=== PATIENT | male | born 1935 | race African-American/Black ===

== ENCOUNTER 2018-08-10 08:31 | Emergency (ER) | payer OTHER ==
[2018-08-10 08:36] VITALS: TEMP 97.8; BMI 20.9
--- NOTE | 2018-08-10 08:45 | PDOC ---
History of Present Illness - General Chief Complaint: Pain Stated Complaint: ABD PAIN Time Seen by Provider: 08/10/18 08:44 - History of Present Illness Initial Comments: 83yo M with HTN x 3 weeks suprapubic pain and bilateral flank pain. Patient reports intermittent dysuria described as burning and retention, but denies frequency, urgency, hesitancy, or foul-smelling urine. He says he had bladder inflammation about three months ago which was treated with antibiotics. Denies penile pain, discharge, or genital lesions. Bowel movements are regular and normal formed brown stools. No fever, chills, chest pain, or shortness of breath. No fever, chills, chest pain, or shortness of breath. Past History - Past Medical History Allergies/Adverse Reactions: Allergies Allergy/AdvReac Type Severity Reaction Status Date / Time Penicillins Allergy Verified 08/10/18 08:33 Home Medications: Ambulatory Orders Losartan Potassium [Cozaar] 100 mg PO DAILY 01/25/12 Multivitamin [Multiple Vitamins] 1 each PO DAILY 08/10/18 Polyethylene Glycol 3350 [Miralax (For Daily Use) -] 17 gm PO DAILY #1 bottle Anemia: No Asthma: No Cancer: No Cardiac Disorders: No CVA: No COPD: No CHF: No Dementia: No Diabetes: No GI Disorders: No Disorders: No HTN: Yes Hypercholesterolemia: No Liver Disease: No Seizures: No Thyroid Disease: No Other medical history: eyes - Surgical History Abdominal Surgery: Yes (right inguinal hernia repair) Cardiac Surgery: No Lung Surgery: No Neurologic Surgery: No - Suicide/Smoking/Psychosocial Hx Smoking Status: No Smoking History: Never smoked Have you smoked in the past 12 months: No Number of Cigarettes Smoked Daily: 0 Information on smoking cessation initiated: No Hx Alcohol Use: No Drug/Substance Use Hx: No Substance Use Type: None Review of Systems - Review of Systems Able to Perform ROS?: Yes Comments:: Constitutional: no fever, no chills Cardiovascular: no chest pain, no palpitations Respiratory: no cough, no shortness of breath Gastrointestinal: +suprapubic pain, no nausea, no vomiting, no diarrhea, no constipation Genitourinary: +dysuria, no frequency Musculoskeletal: no myalgia, no arthralgia Skin: no rash, no itching Neurologic: no headache, no dizziness *Physical Exam - Vital Signs Last Vital Signs Temp Pulse Resp BP Pulse Ox 97.8 F 70 18 149/75 95 08/10/18 08:33 08/10/18 08:33 08/10/18 08:33 08/10/18 08:33 08/10/18 08:33 - Physical Exam Comments: General: Awake, alert, and fully oriented, in no acute distress Head: no signs of trauma Eyes: EOMI, sclera anicteric ENT: Moist mucus membranes, Neck: Normal ROM, supple Lungs: Lungs clear, Normal breath sounds Cardio: Regular rhythm, S1 and S2 present Abdomen: +suprapubic tenderness upon palpation, +CVA tenderness b/l; No guarding , no rebound, no masses Extremities: Normal range of motion, Distal pulses present SKIN: Warm, Dry, normal turgor Neurologic: Cranial nerves II through XII grossly intact. Normal speech ED Treatment Course - LABORATORY CBC & Chemistry Diagram: 08/10/18 09:00 08/10/18 09:00 Medical Decision Making - Medical Decision Making 83yo M with HTN x 3 weeks suprapubic pain and bilateral flank pain. -Labs -EKG -CXR -Ofirmev 08/10/18 09:47 WBC=1.9. Patient has had low WBC in the past. Decision for CT abdomen/pelvis to assess for potential lymphoma or other amsses EKG, rate 58, QTc 402, 1st degree AV block, no ST d/e UA negative. 08/10/18 11:31 Patient reports some alleviation of suprapubic pain. CT shows evidence of enlarged prostrate and constipation. Plan to discharge patient with PCP followup. Sent miralax to pharmacy. Patient amenable to plan. 08/10/18 13:02 *DC/Admit/Observation/Transfer Diagnosis at time of Disposition: Abdominal pain - Discharge Dispostion Disposition: HOME Condition at time of disposition: Improved - Prescriptions Prescriptions: Polyethylene Glycol 3350 [Miralax (For Daily Use) -] 17 gm PO DAILY #1 bottle - Referrals Referrals: Myke Pedraza MD [Primary Care Provider] - - Patient Instructions Printed Discharge Instructions: DI for Abdominal Pain-Adult Additional Instructions: You came to the ED for abdominal pain. CT imaging showed evidence of constipation and an enlarged prostate. Miralax sent to your pharmacy. Follow up with your primary care physician, Dr. Pedraza, in 5-7 days. RETURN if: you experience any lightheadedness, dizziness, chest pain, shortness of breath, persistent black tarry stools, bright red blood per rectum, blood in your vomit, any severe abdominal pain, or any other new or concerning symptoms - Post Discharge Activity
[2018-08-10] MEDS ORDERED: ACETAMINOPHEN 1000 MG/100 ML VIAL (NON FORMULARY) IVPB ONE ×2 (09:11→09:12)
[2018-08-10 09:20] LABS: BASO % 0.5 % (0-2.0); EOS % 1.1 % (0-4.5); HEMATOCRIT 41.8 % (35.4-49); HEMOGLOBIN 13.7 GM/dL (11.7-16.9); LYMPH % 44.3 % (8-40); MCH 28.6 pg (25.7-33.7); MCHC 32.9 g/dl (32.0-35.9); MEAN CELL VOLUME 87.1 fl (80-96); MEAN PLT VOLUME 8.4 fl (7.5-11.1); MONO % 18.1 % (3.8-10.2); PLATELET COUNT 165 K/MM3 (134-434); RDW 15.5 % (11.9-15.9)
[2018-08-10 09:30] LABS: URINE APPEARANCE CLEAR; URINE BILIRUBIN NEGATIVE (<2.0 mg/dL); URINE COLOR LTYELLOW; URINE GLUCOSE (UA) NEGATIVE (NEGATIVE); URINE KETONE NEGATIVE (NEGATIVE); URINE LEUK ESTERASE TRACE (NEGATIVE); URINE NITRITE NEGATIVE (NEGATIVE); URINE PROTEIN NEGATIVE (NEGATIVE); URINE UROBILINOGEN NEGATIVE mg/dL (0.2-1.0)
[2018-08-10 09:30] LABS: WHITE BLOOD COUNT 1.9 K/mm3 (4.0-10.0)
[2018-08-10 09:43] LABS: ALBUMIN 3.8 g/dl (3.4-5.0); ALK PHOS 91 U/L (45-117); ANION GAP 1 MMOL/L (8-16); BILIRUBIN,TOTAL 0.9 mg/dL (0.2-1); BLOOD UREA NITROGEN 15 mg/dL (7-18); CALCIUM 8.7 mg/dL (8.5-10.1); CHLORIDE 107 mmol/L (98-107); CO2 31 mmol/L (21-32); CREATININE 0.9 mg/dL (0.55-1.3); GLUCOSE,RANDOM 82 mg/dL (74-106); SGOT/AST 20 U/L (15-37); SGPT/ALT 36 U/L (13-61); SODIUM 140 mmol/L (136-145); TOT PROT 6.8 g/dl (6.4-8.2)
[2018-08-10] MEDS ORDERED: ACETAMINOPHEN INJECTION 100 ML IVPB ONE (09:51)
--- NOTE | 2018-08-10 09:59 | PDOC ---
Attending Attestation - HPI HPI: This patient is an 83 year old male, with PMHx of HTN, who presents with 3 weeks of suprapubic and bilateral flank pain. He states that he saw his PCP but states that his doctor didnt run all the tests that he wanted him to do so he came here. He also reports intermittent dysuria. One month ago he was told he had BPH and was started on Flomax and another medication however he states that he didnt take it because he thought it would cause prostate cancer. PCP: Myke Pedraza Denies any hematuria, urgency, frequency, hesitancy. Denies any fever chills, nausea, vomiting diarrhea. <Estrellita Sweet - Last Filed: 08/10/18 10:00> - Resident Resident Name: Samina Duarte - ED Attending Attestation I have performed the following: I have examined & evaluated the patient, The case was reviewed & discussed with the resident, I agree w/resident's findings & plan, Exceptions are as noted - Physicial Exam PE: 08/10/18 15:44 Vitals: Triage Vital signs reviewed General Appearance: no acute distress, well nourished well developed, Neck: Supple;No Nucal rigidity Chest Wall: Nontender Cardiac: Regular rate and rhythym, no murmurs, no rubs, no gallops, Lungs: Clear to auscultation bilateral, good air movement bilaterally, Abdomen: Soft, non distended, normal bowel sounds, non tender to palpation Extremities: Full range of motion to all extremities, no cyanosis, clubbing, or edema Skin: Warm and dry, no rashes or lesions, no rash, no petechiae Neuro: AOX3; Cranial Nerves 2-12 grossly intact, Strength intact to all extremities, Sensation intact to all extremities,gait normal Psych: normal mood, normal affect - Medical Decision Making 08/10/18 15:45 83 years old several month history of low back pain suprapubic pain. Known history of BPH was prescribed Flomax but did not want to take it Given age chronicity of abdominal discomfort we'll CT abdomen and pelvis IV contrast labs urine observe and reassess No acute findings on CAT scan labs within normal limits patient feels better after pain medication recommended follow-up with his doctor this week Findings, need for follow-up and strict return instructions discussed with patient. <Jude Benitez - Last Filed: 08/10/18 15:46> Heart Score/ECG Review - ECG Impressions Comment:: 08/10/18 15:46 EKG performed at 928 demonstrates sinus rhythm [address] elevations noted T- wave inversions. Interpreted by me. <Jude Benitez - Last Filed: 08/10/18 15:46>
[2018-08-10 10:59] LABS: ACANTHOCYTES 0; ANISOCYTOSIS 0; HELMET CELLS 0; HOWELL-JOLLY BODIES 0; MACROCYTOSIS 0; OVALOCYTE 0; PLATELET ESTIMATE DECREASED; ROULEAU 0; SICKELED CELLS 0; TARGET CELLS 0; TEAR DROP CELLS 0; TOXIC GRANULATION 0
[2018-08-10 12:19] VITALS: BP 118/68; PULSE 54
--- NOTE | 2018-08-10 15:35 | EKG ---
Test Reason : Blood Pressure : / mmHG Vent. Rate : 058 BPM Atrial Rate : 058 BPM P-R Int : 224 ms QRS Dur : 088 ms QT Int : 410 ms P-R-T Axes : 083 066 063 degrees QTc Int : 402 ms SINUS BRADYCARDIA WITH 1ST DEGREE A-V BLOCK MODERATE VOLTAGE CRITERIA FOR LVH, MAY BE NORMAL VARIANT BORDERLINE ECG WHEN COMPARED WITH ECG OF 16-JAN-2016 16:17, [place] INTERVAL HAS INCREASED Confirmed by ENMANUEL AZAR, ISAÍAS ([id number]) on 08/10/2018 3:35:03 PM Referred By: Confirmed By:ISAÍAS SINGER MD
== END 2018-08-10 13:36 | disposition home or self-care (01) ==
LOC: JER 08:31
PROC: 3E033NZ Introduction of Analgesics, Hypnotics, Sedatives into Peripheral Vein, Percutaneous Approach (ICD-10-PCS; principal; 2018-08-10)
DX: N40.0 Benign prostatic hyperplasia without lower urinary tract symptoms (principal); K59.00 Constipation, unspecified; I10 Essential (primary) hypertension
CPT/HCPCS: 36415; 71045-TC-FY; 74177-TC; 80053; 81003; 81015; 83605; 85025; 87086; 93005; 93010; 96374; 99283-25; J0131

== ENCOUNTER 2019-06-26 08:46 | Observation (INO) | payer OTHER ==
--- NOTE | 2019-06-26 09:06 | PDOC ---
History of Present Illness - General Chief Complaint: Chest Pain Stated Complaint: CHEST PAIN Time Seen by Provider: 06/26/19 08:56 History Source: Patient Exam Limitations: No Limitations - History of Present Illness Initial Comments: 06/26/19 09:31 Patient is an 84M with history of HTN here today complaining of chest pain that onset at rest this morning, two hours prior to arrival. The patient describes his pain as a pressure that goes from his chest to his left arm. He took aspirin at home, and states that his pain has been improving since. He states that his chest pain has mostly resolved. It is not reproducible and not changed with inspiration. Denies fevers, chills, nausea, vomiting. Denies cough and shortness of breath. Denies abdominal pain, leg pain. Patient complains of some lower back pain that has been going on for one month and worse with moving from a sitting to standing position. Denies recent travel, leg swelling, prior blood clots. Past History - Past Medical History Allergies/Adverse Reactions: Allergies Allergy/AdvReac Type Severity Reaction Status Date / Time Penicillins Allergy Verified 06/26/19 08:50 Home Medications: Ambulatory Orders Losartan Potassium [Cozaar] 100 mg PO DAILY 01/25/12 Multivitamin [Multiple Vitamins] 1 each PO DAILY 08/10/18 Aspirin [Aspirin EC] 81 mg PO DAILY PRN 06/26/19 Finasteride [Proscar -] 5 mg PO DAILY 06/26/19 Anemia: No Asthma: No Cancer: No Cardiac Disorders: No CVA: No COPD: No CHF: No Dementia: No Diabetes: No GI Disorders: No Disorders: No HTN: Yes Hypercholesterolemia: No Liver Disease: No Seizures: No Thyroid Disease: No - Surgical History Abdominal Surgery: Yes (right inguinal hernia repair) Cardiac Surgery: No Lung Surgery: No Neurologic Surgery: No - Suicide/Smoking/Psychosocial Hx Smoking Status: No Smoking History: Never smoked Have you smoked in the past 12 months: No Number of Cigarettes Smoked Daily: 0 Hx Alcohol Use: No Drug/Substance Use Hx: No Substance Use Type: None Review of Systems - Review of Systems Able to Perform ROS?: Yes Comments:: 06/26/19 09:33 GENERAL/CONSTITUTIONAL: No fever or chills. No weakness. HEAD, EYES, EARS, NOSE AND THROAT: No change in vision. No ear pain or discharge. No sore throat. CARDIOVASCULAR: +chest pain no shortness of breath RESPIRATORY: No cough, wheezing, or hemoptysis. GASTROINTESTINAL: No nausea, vomiting, diarrhea or constipation. GENITOURINARY: No dysuria, frequency, or change in urination. MUSCULOSKELETAL: No joint or muscle swelling or pain. No neck or back pain. SKIN: No rash NEUROLOGIC: No headache, vertigo, loss of consciousness, or change in strength/ sensation. ENDOCRINE: No increased thirst. No abnormal weight change HEMATOLOGIC/LYMPHATIC: No anemia, easy bleeding, or history of blood clots. ALLERGIC/IMMUNOLOGIC: No hives or skin allergy. *Physical Exam - Vital Signs Last Vital Signs Temp Pulse Resp BP Pulse Ox 97.9 F 68 18 133/61 98 06/26/19 08:47 06/26/19 08:47 06/26/19 08:47 06/26/19 08:47 06/26/19 08:47 - Physical Exam Comments: 06/26/19 09:33 GENERAL: Awake, alert, and fully oriented, in no acute distress HEAD: No signs of trauma, normocephalic, atraumatic EYES: PERRLA, EOMI, sclera anicteric, conjunctiva clear ENT: Auricles normal inspection, hearing grossly normal, nares patent, oropharynx clear without exudates. Moist mucosa NECK: Normal ROM, supple, no lymphadenopathy, JVD, or masses LUNGS: No distress, speaks full sentences, clear to auscultation bilaterally HEART: Regular rate and rhythm, normal S1 and S2, no murmurs, rubs or gallops, peripheral pulses normal and equal bilaterally. No chest wall tenderness BACK: No midline tenderness, tender along left lumbar paraspinal region. ABDOMEN: Soft, nontender, normoactive bowel sounds. No guarding, no rebound. No masses EXTREMITIES: Normal inspection, Normal range of motion, no edema. No clubbing or cyanosis. NEUROLOGICAL: Cranial nerves II through XII grossly intact. Normal speech, normal gait, no focal sensorimotor deficits SKIN: Warm, Dry, normal turgor, no rashes or lesions noted. Heart Score/ECG Review - History History: Moderately suspicious - Electrocardiogram EKG: Normal - Age Age: >/= 65 - Risk Factors Risk Factors Heart Score: Yes Hx Hypertension Based on the list above the patient has:: 1-2 risk factors - Troponin Troponin: </= normal limit - Score Heart Score - Total: 4 ED Treatment Course - LABORATORY CBC & Chemistry Diagram: 06/26/19 09:16 06/26/19 09:16 - RADIOLOGY Radiology Studies Ordered: Category Date Time Status CHEST PA & LAT [RAD] Stat Radiology 06/26/19 09:04 Ordered Medical Decision Making - Medical Decision Making 06/26/19 09:34 Patient is 84M with history of HTN here today with chest pain. Vitals normal and stable. Pain mostly resolved, already given aspirin. EKG shows NSR with no st elevations/depressions. Normal axis. Normal intervals. No significant t wave abnormalities. Do not suspect PE given risk factors and symptoms. HEART score 4 , will do cardiac workup, likely admit to obs. 06/26/19 10:20 CBC shows leukopenia, ANC 608. Patient chronically low, slightly below baseline today. CMP normal Trop neg UA clear. CXR clear. Hospitalist paged. *DC/Admit/Observation/Transfer Diagnosis at time of Disposition: Chest pain - Discharge Dispostion Condition at time of disposition: Stable Decision to Admit order: Yes - Referrals Referrals: Juan C Thrasher MD [Primary Care Provider] - - Patient Instructions - Post Discharge Activity
[2019-06-26 09:33] LABS: BASO % 0.5 % (0-2.0); EOS % 1.4 % (0-4.5); HEMATOCRIT 37.1 % (35.4-49); HEMOGLOBIN 12.7 GM/dL (11.7-16.9); LYMPH % 42.3 % (8-40); MCH 29.6 pg (25.7-33.7); MCHC 34.2 g/dl (32.0-35.9); MEAN CELL VOLUME 86.6 fl (80-96); MEAN PLT VOLUME 8.2 fl (7.5-11.1); NEUT % 35.8 % (42.8-82.8); PLATELET COUNT 154 K/MM3 (134-434); RBC 4.29 M/mm3 (4.00-5.60)
--- NOTE | 2019-06-26 09:52 | PDOC ---
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 Pt was at rest when chest pain began, states it was pressure like to the L side of his chest, radiating to his L arm. No radiation to the back. No associated SOB. Reports pressure has improved now, but still present. Denies F/C, cough, dizziness, focal weakness/ numbness. Denies headache, abd pain, N/V/D, LE edema, rashes. No hx similar pain at rest or with exertion. - Physicial Exam PE: 06/26/19 10:11 agree with resident exam - Medical Decision Making 06/26/19 10:11 84yo M hx HTN presents to the ED with LSCP radiating to LUE while at rest Vitals wnl Exam wnl EKG with PVCs but otherwise non ischemic DDx includes ACS vs CHF vs PNA No PE risk factors, no tachcyardia, hypoxia or SOB Plan for labs, XR, tele obs admission 06/26/19 10:19 Pt borderline neutropenic, in past has also been leukopenic No recent fevers Heart Score/ECG Review - History History: Moderately suspicious - Electrocardiogram EKG: Non specific repolarization disturbance - Age Age: >/= 65 - Risk Factors Based on the list above the patient has:: 1-2 risk factors - Troponin Troponin: </= normal limit - Score Heart Score - Total: 5 #1 06/26/19 10:14 Twelve-lead EKG was performed and reviewed by me. Sinus rhythm normal axis. No ST elevations or T-wave inversions. +PVCs
[2019-06-26 09:59] LABS: ALBUMIN 3.6 g/dl (3.4-5.0); ALK PHOS 108 U/L (45-117); ANION GAP 4 MMOL/L (8-16); BILIRUBIN,TOTAL 0.6 mg/dL (0.2-1); BLOOD UREA NITROGEN 19.9 mg/dL (7-18); CALCIUM 8.6 mg/dL (8.5-10.1); CHLORIDE 106 mmol/L (98-107); CO2 32 mmol/L (21-32); CREATININE 1.1 mg/dL (0.55-1.3); GLUCOSE,RANDOM 93 mg/dL (74-106); MAGNESIUM 2.6 mg/dL (1.8-2.4); POTASSIUM 4.3 mmol/L (3.5-5.1); SGOT/AST 21 U/L (15-37); SGPT/ALT 35 U/L (13-61); SODIUM 142 mmol/L (136-145); TOT PROT 6.5 g/dl (6.4-8.2)
[2019-06-26 10:01] LABS: INR 1.14 (0.83-1.09); PROTHROMBIN TIME (PATIENT) 13.5 SEC (9.7-13.0)
[2019-06-26 10:02] LABS: WHITE BLOOD COUNT 1.7 K/mm3 (4.0-10.0)
[2019-06-26 10:04] LABS: PH,URINE 6.5 (5.0-8.0); URINE APPEARANCE CLEAR; URINE BILIRUBIN NEGATIVE (NEGATIVE); URINE COLOR YELLOW; URINE GLUCOSE (UA) NEGATIVE (NEGATIVE); URINE KETONE NEGATIVE (NEGATIVE); URINE LEUK ESTERASE NEGATIVE (NEGATIVE); URINE NITRITE NEGATIVE (NEGATIVE); URINE PROTEIN NEGATIVE (NEGATIVE); URINE UROBILINOGEN 0.2 mg/dL (0.2-1.0)
--- NOTE | 2019-06-26 11:17 | HP ---
CHIEF COMPLAINT: chest pain HISTORY OF PRESENT ILLNESS: Patient is an 84 yo M with a PMHx of HTN, BPH, chronic leukopenia presenting with sudden, substernal, sharp, chest pain, radiating to the L arm, that started this morning when thinking about his son, who lives far away from him. The pain lasted 10-15 minutes. He says he took an Aspirin which provided relief. Patient currently has no pain and decided to come to the ER to get evaluated. Says he never experienced this pain before. He says he had a stress test done over 7 years ago here in [facility], but there is no record of it. He says it was normal. 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 Patient denies other symptoms. Denies sob, nausea, vomiting, chills, fevers, recent illness, diarrhea. ER course was notable for: (1) EKG NSR, no ST, T changes (2) Leukopenic 1.7, ANC 600 (chronic) PAST MEDICAL HISTORY: BPH, HTN PAST SURGICAL HISTORY: L inguinal hernia Repair Social History: Smoking: denies Alcohol: denies Drugs: denies Family History: Allergies Penicillins Allergy (Verified 06/26/19 08:50) RASH HOME MEDICATIONS: Home Medications Medication Instructions Recorded Losartan Potassium [Cozaar] 100 mg PO DAILY 01/25/12 Multivitamin [Multiple Vitamins] 1 each PO DAILY 08/10/18 Aspirin [Aspirin EC] 81 mg PO DAILY PRN 06/26/19 Finasteride [Proscar -] 5 mg PO DAILY 06/26/19 REVIEW OF SYSTEMS CONSTITUTIONAL: Absent: fever, chills, diaphoresis, generalized weakness, malaise, loss of appetite, weight change HEENT: Absent: rhinorrhea, nasal congestion, throat pain, throat swelling, difficulty swallowing, mouth swelling, ear pain, eye pain, visual changes CARDIOVASCULAR: chest pain. Absent: syncope, palpitations, irregular heart rate, lightheadedness, peripheral edema RESPIRATORY: dyspnea with exertion Absent: cough, shortness of breath, orthopnea, wheezing, stridor, hemoptysis GASTROINTESTINAL: Absent: abdominal pain, abdominal distension, nausea, vomiting, diarrhea, constipation, melena, hematochezia GENITOURINARY: Absent: dysuria, frequency, urgency, hesitancy, hematuria, flank pain, genital pain MUSCULOSKELETAL: + lower back pain Absent: myalgia, arthralgia, joint swelling, neck pain SKIN: Absent: rash, itching, pallor HEMATOLOGIC/IMMUNOLOGIC: Absent: easy bleeding, easy bruising, lymphadenopathy, frequent infections PHYSICAL EXAMINATION Vital Signs - 24 hr 06/26/19 06/26/19 08:47 10:04 Temperature 97.9 F Pulse Rate 68 Pulse Rate [ 58 L Right Radial] Respiratory 18 Rate Blood Pressure 133/61 Blood Pressure 151/79 [Left Arm] O2 Sat by Pulse 98 100 Oximetry (%) GENERAL: Awake, alert, and fully oriented, in no acute distress. EYES: Pupils equal, round and reactive to light, extraocular movements intact, +cataracts EARS, NOSE, THROAT:oropharynx clear without exudates. NECK: supple without lymphadenopathy. +R JVD (mild) LUNGS: Breath sounds equal, clear to auscultation bilaterally. HEART: RRR, No MGR ABDOMEN: +BS, nt, nd LOWER EXTREMITIES: 2+ pulses, warm, 1+ edema b/l R>L NEUROLOGICAL: Cranial nerves II-XII intact ASSESSMENT/PLAN: 84 yo M with a PMHx of HTN, BPH, presenting with sudden, substernal, sharp, chest pain #Chest pain -r/o ACS -Patient not a reliable historian, mentioned exertional chest pain. r/o unstable angina -Trop neg x 1, repeat -EKG NSR, no st changes -repeat ekg -Echo -lipid panel -Will need stress test Friday #Leukopenia -says its chronic. Leukopenia on record dating back to 2011. -He says he had a BM biopsy done over 3 years ago which was unremarkable. 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 #HTN -cont losartan 100mg #BPH -cont Finasteride #FEN -no iv fluids -monitor -sodium diet #dvt -hep sq Visit type - Emergency Visit Emergency Visit: Yes ED Registration Date: 06/26/19 Care time: The patient presented to the Emergency Department on the above date and was hospitalized for further evaluation of their emergent condition. - New Patient This patient is new to me today: Yes Date on this admission: 06/26/19 - Critical Care Critical Care patient: No ATTENDING PHYSICIAN STATEMENT I saw and evaluated the patient. I reviewed the resident's note and discussed the case with the resident. I agree with the resident's findings and plan as documented. SUBJECTIVE: OBJECTIVE: ASSESSMENT AND PLAN:
--- NOTE | 2019-06-26 12:41 | PN ---
Teaching Attending Note Name of Resident: Tom Lizarraga ATTENDING PHYSICIAN STATEMENT I saw and evaluated the patient. I reviewed the resident's note and discussed the case with the resident. I agree with the resident's findings and plan as documented. SUBJECTIVE: CC: CP. HPI: 84 y/o man with H/o leukopenia/neutropenia, BPH, gynecomastia, HTN, and L hip arthritis who presented with CP . patient is a poor historianand gave Dr. Lizarraga a slightly different story. This am at 7:30 am , while standing, he thought of his son ans he felt stressed out and developed L sided CP. it felt like sharp and pressure pain that spread across the left side of his chest down the L arm. it lasted for 30 min. Pain was accompanied with SOB , but no Nausea, no vomiting and no palpitations. he took 81 mg of aspirin which resolved the pain. at arrival to ER, he was CP free. He reports exertional SOB CP on exertion ( walking fast, can't climb stairs due to L hip pain ). pain resolved with stopping. for similar sx , he had a stress test about 7 years ago which was nl per patient. 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 denies fever , chills, N/V, abd pain , hematuria, hematochezia , and palpitations He has a h/o leukopenia and it was w/u with heme as out pt . BM bx was done in past but no obvious abn was found per him. 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 IN ER. patietn was CP free. he was not given any meds. EKG was done ( reviewed) , it showed sinus rhythm, No TWI, Nl Axes . < [address] elevationin V3, which was there compared to last EKG in our system from 2018. OBJECTIVE: NAD, AAOx3 , cooperative HEENT: symmetric face, no facial droop, MMMM, round equal pupils, reactive to light, tongue at mid line, possible R JVD CV: RRR, No MRG, possible R JVD Lungs: CTAB Abd: soft, NT, ND, NL BS. L groin small inguinal hernia Ext: trace edema on both legs . varicose veins on feet. enlarged breasts Lymphatic system: No lymphadenopathy in neck, axilla or groins. Neuro: symmetric face, no facial droop, MMMM, round equal pupils, reactive to light, tongue at mid line, uvula at mid line. strength 5/5 in upper and lwoer extremities proximally and distally. sensation to light touch is NL. reflexes: 2 +knee jerk and biceps b/l. 1+ BR b/l. ASSESSMENT AND PLAN: 84 y/o man with H/o leukopenia/neutropenia, BPH, gynecomastia, HTN, and L hip arthritis who presented with CP. 1- CP: given his exertional CP and now CP at rest , need to r/o unstable angina. anxiety is in DDX . - No EKG changes, No chest pain at this time. first trop NL. - will repeat EKG and trop - Stress test - Echo - LE edema might be due to varicose veins. - tele monitoring 2- H/o HTN: cont cozaar 3- H/o BPH : cont porscar DVT PX.
[2019-06-26 12:55] LABS: ANISOCYTOSIS 0; MACROCYTOSIS 0
[2019-06-26 12:59] LABS: PLATELET ESTIMATE ADEQUATE
[2019-06-26] MEDS ORDERED: HEPARIN NA (PORCINE) 5,000 UNITS/ML 1ML VIAL ONE (14:10)
[2019-06-26] MEDS: HEPARIN NA (PORCINE) 5,000 UNITS/ML 1ML VIAL SQ SCH ×2 (14:12→23:00)
--- NOTE | 2019-06-26 15:47 | EKG ---
Test Reason : Blood Pressure : / mmHG Vent. Rate : 067 BPM Atrial Rate : 067 BPM P-R Int : 200 ms QRS Dur : 086 ms QT Int : 390 ms P-R-T Axes : 083 069 067 degrees QTc Int : 412 ms SINUS RHYTHM WITH OCCASIONAL PREMATURE VENTRICULAR COMPLEXES OTHERWISE NORMAL ECG WHEN COMPARED WITH ECG OF 10-AUG-2018 09:28, PREMATURE VENTRICULAR COMPLEXES ARE NOW PRESENT Confirmed by WHITNEY AZAR, ZECHARIAH ([id number]) on 06/26/2019 3:47:21 PM Referred By: Confirmed By:ZECHARIAH OLSON MD
[2019-06-26 21:19] VITALS: BMI 20.3
[2019-06-27] MEDS: HEPARIN NA (PORCINE) 5,000 UNITS/ML 1ML VIAL SQ SCH ×3 (06:42→22:53)
[2019-06-27 06:44] LABS: BASO % 0.5 % (0-2.0); EOS % 2.2 % (0-4.5); HEMATOCRIT 38.1 % (35.4-49); LYMPH % 39.9 % (8-40); MCH 29.4 pg (25.7-33.7); MEAN CELL VOLUME 86.5 fl (80-96); MEAN PLT VOLUME 8.3 fl (7.5-11.1); MONO % 18.3 % (3.8-10.2); NEUT % 39.1 % (42.8-82.8); PLATELET COUNT 145 K/MM3 (134-434); RBC 4.41 M/mm3 (4.00-5.60); RDW 15.6 % (11.9-15.9)
[2019-06-27 07:12] LABS: ALBUMIN 3.4 g/dl (3.4-5.0); BILIRUBIN,TOTAL 0.7 mg/dL (0.2-1); BLOOD UREA NITROGEN 15.4 mg/dL (7-18); CALCIUM 8.3 mg/dL (8.5-10.1); CREATININE 0.9 mg/dL (0.55-1.3); MAGNESIUM 2.5 mg/dL (1.8-2.4); POTASSIUM 3.7 mmol/L (3.5-5.1); TOT PROT 6.2 g/dl (6.4-8.2)
[2019-06-27 07:23] LABS: WHITE BLOOD COUNT 1.7 K/mm3 (4.0-10.0)
[2019-06-27] MEDS: LOSARTAN POTASSIUM 50 MG TABLET (FP) PO SCH (09:37)
[2019-06-27] MEDS: MULTIVITAMINS (DAILY MVI) TABLET (FP) PO SCH (09:37)
[2019-06-27] MEDS: FINASTERIDE 5 MG TABLET (FP) PO SCH (09:38)
[2019-06-27 09:54] LABS: ANISOCYTOSIS 0; MACROCYTOSIS 0; PLATELET ESTIMATE DECREASED
[2019-06-27] MEDS ORDERED: PATIENT'S OWN MEDICATION (NON-FORMULARY) (Losartan Potassium [Cozaar] 100 MG) PO SCH (10:00)
--- NOTE | 2019-06-27 11:43 | EKG ---
Test Reason : Blood Pressure : / mmHG Vent. Rate : 058 BPM Atrial Rate : 058 BPM P-R Int : 256 ms QRS Dur : 088 ms QT Int : 444 ms P-R-T Axes : 067 070 069 degrees QTc Int : 435 ms SINUS BRADYCARDIA WITH 1ST DEGREE A-V BLOCK OTHERWISE NORMAL ECG WHEN COMPARED WITH ECG OF 26-JUN-2019 08:52, PREMATURE VENTRICULAR COMPLEXES ARE NO LONGER PRESENT [place] INTERVAL HAS INCREASED CLINICAL CORRELATION IS RECOMMENDED Confirmed by WHITNEY AZAR, ZECHARIAH ([id number]) on 06/27/2019 11:42:52 AM Referred By: Confirmed By:ZECHARIAH OLSON MD
[2019-06-27] MEDS ORDERED: SIMETHICONE 80 MG TAB.CHEW (FP) PO ONE ×2 (14:10→21:43)
--- NOTE | 2019-06-27 14:40 | PN ---
Progress Note (short form) - Note Progress Note: Subjective: no fever or chills . No GARCIA. No CP Objective: Vital Signs: Last Vital Signs Temp Pulse Resp BP Pulse Ox 98.3 F 63 18 149/76 98 06/27/19 09:36 06/27/19 09:36 06/27/19 11:00 06/27/19 09:36 06/27/19 11:00 Laboratory Results - last 24 hr 06/26/19 06/27/19 06/27/19 17:50 06:20 06:20 WBC 1.7 L* RBC 4.41 Hgb 13.0 Hct 38.1 MCV 86.5 MCH 29.4 MCHC 34.0 RDW 15.6 Plt Count 145 MPV 8.3 Absolute Neuts (auto) 0.7 L Neutrophils % 39.1 L Neutrophils % (Manual) 48.0 Band Neutrophils % 0.0 Lymphocytes % 39.9 Lymphocytes % (Manual) 32.7 Monocytes % 18.3 H Monocytes % (Manual) 16 H Eosinophils % 2.2 Eosinophils % (Manual) 2.0 Basophils % 0.5 Basophils % (Manual) 0.0 Myelocytes % (Man) 0 Promyelocytes % (Man) 0 Blast Cells % (Manual) 0 Nucleated RBC % 0 Metamyelocytes 0 Hypochromia 0 Platelet Estimate Decreased Polychromasia 0 Poikilocytosis 0 Anisocytosis 0 Microcytosis 0 Macrocytosis 0 Sodium 145 Potassium 3.7 Chloride 107 Carbon Dioxide 32 Anion Gap 6 L BUN 15.4 Creatinine 0.9 Est GFR (CKD-EPI)AfAm 89.32 Est GFR (CKD-EPI)NonAf 77.06 Random Glucose 79 Calcium 8.3 L Magnesium 2.5 H Total Bilirubin 0.7 AST 22 ALT 35 Alkaline Phosphatase 82 Troponin I < 0.02 Total Protein 6.2 L Albumin 3.4 Triglycerides 35 Cholesterol 148 Total LDL Cholesterol 79 HDL Cholesterol 67 H Physical Exam: NAD, AAOx3, cooperative CV: RRR, No MRG. Lungs: CTAB Abd: soft, NT, ND, NL BS. Ext: trace edema on both legs. varicose veins on feet. enlarged breasts ASSESSMENT AND PLAN: 84 y/o man with H/o leukopenia/neutropenia, BPH, gynecomastia, HTN, and L hip arthritis who presented with CP. 1- CP: - Stress test in aM - Echo - LE edema might be due to varicose veins. - tele monitoring NO EVENTS 2- H/o HTN: cont cozaar 3- H/o BPH : cont porscar DVT PX. Visit type - Emergency Visit Emergency Visit: Yes ED Registration Date: 06/26/19 Care time: The patient presented to the Emergency Department on the above date and was hospitalized for further evaluation of their emergent condition. - New Patient This patient is new to me today: No - Critical Care Critical Care patient: No
[2019-06-28] MEDS: HEPARIN NA (PORCINE) 5,000 UNITS/ML 1ML VIAL SQ SCH ×2 (05:48→14:16)
[2019-06-28] MEDS: LOSARTAN POTASSIUM 50 MG TABLET (FP) PO SCH ×2 (06:18→10:32)
[2019-06-28] MEDS: MULTIVITAMINS (DAILY MVI) TABLET (FP) PO SCH (10:29)
[2019-06-28] MEDS: FINASTERIDE 5 MG TABLET (FP) PO SCH (10:29)
--- NOTE | 2019-06-28 13:55 | ECHO ---
Name: GUERLINE CANTOR Exam:Adult Echocardiogram Study Date: 06/28/2019 07:51 AM Age: 84 yrs Reason For Study: Chest pain Height: 69 in Weight: 140 lb BSA: 1.8 m2 MMode/2D Measurements & Calculations IVSd: 0.97 cm Ao root diam: 2.8 cm LVIDd: 4.8 cm LA dimension: 3.2 cm LVIDs: 2.9 cm LVPWd: 1.00 cm EDV(Teich): 105.3 ml LVOT diam: 2.0 cm ESV(Teich): 31.4 ml Doppler Measurements & Calculations MV E max trent: 104.0 cm/sec Ao V2 max: 142.5 cm/sec MV A max trent: 72.8 cm/sec Ao max P.1 mmHg MV E/A: 1.4 MV dec time: 0.19 sec AMMY(V,D): 1.7 cm2 LV V1 max P.2 mmHg MR max trent: 545.9 cm/sec LV V1 max: 74.7 cm/sec MR max P.4 mmHg TR max trent: 234.0 cm/sec PA V2 max: 103.2 cm/sec TR max P.9 mmHg PA max P.3 mmHg Med Peak E' Trent: 6.3 cm/sec PI Vmax: 206.3 cm/sec Med E/e': 16.5 Lat Peak E' Trent: 12.8 cm/sec Lat E/e': 8.1 Procedure A complete two-dimensional transthoracic echocardiogram was performed (2D, M-mode, Doppler and color flow Doppler). Left Ventricle The left ventricle is normal in size. Left ventricular systolic function is normal. Ejection Fraction = 60- 65%. Diastolic dysfunction, Grade II (pseudonormalization pattern). Ratio E/E'= 17. No regional wall motion abnormalities noted. Right Ventricle The right ventricle is normal size. The right ventricular systolic function is normal. Atria The left atrial size is normal. Right atrial size is normal. Mitral Valve There is mild mitral valve thickening. There is mild to moderate mitral regurgitation. Tricuspid Valve There is mild tricuspid valve thickening. There is mild to moderate tricuspid regurgitation. Pulmonar y artery systolic pressure is at least 27 mmHg if RA pressure is assumed 3 mmHg. Aortic Valve There is mild aortic sclerosis.;. No aortic regurgitation is present. Pulmonic Valve The pulmonic valve is not well visualized. Mild pulmonic valvular regurgitation. Great Vessels The aortic root is normal size. Pericardium/Pleura There is no pericardial effusion. Interpretation Summary The left ventricle is normal in size. Left ventricular systolic function is normal. No regional wall motion abnormalities noted. Ejection Fraction = 60-65%. Diastolic dysfunction, Grade II (pseudonormalization pattern). Ratio E/E'= 17 elevated filling pressure The right ventricular systolic function is normal. The left atrial size is normal. Right atrial size is normal. There is mild mitral valve thickening. There is mild to moderate mitral regurgitation. There is mild tricuspid valve thickening. There is mild to moderate tricuspid regurgitation. Pulmonary artery systolic pressure is at least 27 mmHg if RA pressure is assumed 3 mmHg There is mild aortic sclerosis. Mild pulmonic valvular regurgitation. There is no pericardial effusion. Previous study is not available for comparison Kp Garnett MD 06/28/2019 01:54 PM
--- NOTE | 2019-06-28 14:39 | PN ---
Teaching Attending Note Name of Resident: Nieves Burgos ATTENDING PHYSICIAN STATEMENT I saw and evaluated the patient. I reviewed the resident's note and discussed the case with the resident. I agree with the resident's findings and plan as documented. SUBJECTIVE: No fever or chills. No CP , no SOB OBJECTIVE: NAD, AAOx3, cooperative CV: RRR, No MRG. Lungs: CTAB Abd: soft, NT, ND, NL BS. Ext: trace edema on both legs. varicose veins on feet. ASSESSMENT AND PLAN: 84 y/o man with H/o leukopenia/neutropenia, BPH, gynecomastia, HTN, and L hip arthritis who presented with CP. 1- CP: - declined stress test and would like to get as out pt - Echo reviewed. valvular abnormalities. no WMA. referred to card Dr. Palmer - YONATAN edema might be due to varicose veins. - tele monitoring no events. 2- H/o HTN: cont cozaar 3- H/o BPH: cont porscar Dc home.
[2019-06-28 15:19] VITALS: BP 128/69; PULSE 63; TEMP 97.8
--- NOTE | 2019-06-28 17:35 | DS ---
Physical Exam: SUBJECTIVE: Patient seen and examined, No acute event. OBJECTIVE: Patient is in no acute distress Vital Signs Period Temp Pulse Resp BP Sys/Werner Pulse Ox Last 24 Hr 97.7 F-98.4 F 59-64 18-20 128-187/67-83 100 PHYSICAL EXAM GENERAL: The patient is awake, alert, and fully oriented, in no acute distress. HEAD: Normal with no signs of trauma. EYES: PERRL, extraocular movements intact, sclera anicteric, conjunctiva clear. ENT: Ears normal, nares patent, oropharynx clear without exudates, moist mucous membranes. NECK: Trachea midline, full range of motion, supple. LUNGS: Breath sounds equal, clear to auscultation bilaterally, no wheezes, no crackles, no accessory muscle use. HEART: Regular rate and rhythm, S1, S2 without murmur, rub or gallop. ABDOMEN: Soft, nontender, nondistended, normoactive bowel sounds, no guarding, no rebound, no hepatosplenomegaly, no masses. EXTREMITIES: 2+ pulses, warm, well-perfused, no edema. NEUROLOGICAL: Cranial nerves II through XII grossly intact. Normal speech, gait not observed. PSYCH: Normal mood, normal affect. SKIN: Warm, dry, normal turgor, no rashes or lesions noted. LABS HOSPITAL COURSE: Date of Admission:06/26/19 Patient is an 84 yo M with a PMHx of HTN, BPH, chronic leukopenia presenting with sudden, substernal, sharp, chest pain, radiating to the L arm, that started on 06/26/2019 when thinking about his son, who lives far away from him. The pain lasted 10-15 minutes. He came to the ER and troponin were trended ( negativex3). ECG showed sinus bradycardia with 1st degree AV block with an otherwise normal ECG. Echo performed on 06/28/19 was normal with an EF ranging 60-65%. Patient refused ECG stress test. CHest Xray on 06/26 showed no acute pathology.Pt was stable for discharged home with cardio follow up. Date of Discharge: 06/28/19 Minutes to complete discharge: 35 Discharge Summary Reason For Visit: CHEST PAIN Current Active Problems Chest pain (Acute) Condition: Improved - Instructions Diet, Activity, Other Instructions: You came into the emergency room with complaints of sudden onset of chest pain. We did an echocardiogram of your heart which shoed valvular abnormalities ( moderate insufficiency in mitrala nd tricuspid valves) . We had advised that you undergo a nuclear stress test, however, you declined. Your symptoms improved and you were stable to be discharged home. Please resume all of your home medications Please follow up with Dr. Thrasher within one week We are referring you to a [employer], Dr. Palmer to see within one week. *if you begin to experience worsening worsening chest pains, shortness of breath , nausea/vomiting please return to the emergency room immediately Referrals: Juan C Thrasher [Other] - 1 Week Kuldeep Palmer MD [Staff Physician] - 1 Week Disposition: HOME - Home Medications Comprehensive Discharge Medication List: Ambulatory Orders Losartan Potassium [Cozaar] 100 mg PO DAILY 01/25/12 Multivitamin [Multiple Vitamins] 1 each PO DAILY 08/10/18 Finasteride [Proscar -] 5 mg PO DAILY 06/26/19 Netarsudil Mesylate [Rhopressa] 2.5 ml OP DAILY 06/28/19 This patient is new to me today: Yes Date on this admission: 06/28/19 Emergency Visit: Yes ED Registration Date: 06/26/19 Care time: The patient presented to the Emergency Department on the above date and was hospitalized for further evaluation of their emergent condition. Critical Care patient: No - Discharge Referral Referred to [facility] No ATTENDING PHYSICIAN STATEMENT I saw and evaluated the patient. I reviewed the resident's note and discussed the case with the resident. I agree with the resident's findings and plan as documented. SUBJECTIVE: OBJECTIVE: ASSESSMENT AND PLAN:
== END 2019-06-28 17:47 | disposition home or self-care (01) ==
LOC: JER 08:46 → JERBED 10:21 → UNDOADMOB 10:21 → INTOOBSV 10:21 → JERBED 11:06 → J4W 21:25
PROVIDERS: ADMIT Internal Medicine; ATTEND Internal Medicine
DX: R07.89 Other chest pain (principal); I10 Essential (primary) hypertension; N40.0 Benign prostatic hyperplasia without lower urinary tract symptoms; R60.0 Localized edema; Z79.82 Long term (current) use of aspirin; Z88.0 Allergy status to penicillin
CPT/HCPCS: 36415; 71046-TC-FY; 80053; 80061; 81003; 82550; 82553; 83721; 83735; 84484; 85025; 85610; 87086; 93005; 93010; 93306-TC; 99285-25; G0378; J1644

== ENCOUNTER 2019-06-30 07:52 | Observation (INO) | payer OTHER ==
[2019-06-30 09:42] LABS: BASO % 0.2 % (0-2.0); EOS % 0.7 % (0-4.5); HEMATOCRIT 40.6 % (35.4-49); HEMOGLOBIN 13.7 GM/dL (11.7-16.9); LYMPH % 37.4 % (8-40); MCH 29.5 pg (25.7-33.7); MCHC 33.8 g/dl (32.0-35.9); MEAN CELL VOLUME 87.1 fl (80-96); MEAN PLT VOLUME 8.5 fl (7.5-11.1); MONO % 19.7 % (3.8-10.2); PLATELET COUNT 159 K/MM3 (134-434); RBC 4.66 M/mm3 (4.00-5.60); RDW 16.2 % (11.9-15.9); WHITE BLOOD COUNT 2.3 K/mm3 (4.0-10.0)
[2019-06-30 09:55] LABS: INR 1.04 (0.83-1.09); PROTHROMBIN TIME (PATIENT) 12.3 SEC (9.7-13.0)
[2019-06-30 10:06] LABS: ALBUMIN 3.8 g/dl (3.4-5.0); BILIRUBIN,TOTAL 0.6 mg/dL (0.2-1); BLOOD UREA NITROGEN 20.2 mg/dL (7-18); CALCIUM 9.2 mg/dL (8.5-10.1); POTASSIUM 4.4 mmol/L (3.5-5.1); TOT PROT 6.8 g/dl (6.4-8.2)
--- NOTE | 2019-06-30 10:55 | EKG ---
Test Reason : Blood Pressure : / mmHG Vent. Rate : 062 BPM Atrial Rate : 062 BPM P-R Int : 202 ms QRS Dur : 088 ms QT Int : 384 ms P-R-T Axes : 073 061 061 degrees QTc Int : 389 ms NORMAL SINUS RHYTHM NORMAL ECG WHEN COMPARED WITH ECG OF 26-JUN-2019 14:53, NE INTERVAL HAS DECREASED Confirmed by ALONSO FELIX MD ([id number]) on 06/30/2019 10:55:06 AM Referred By: Confirmed By:ALONSO FELIX MD
--- NOTE | 2019-06-30 13:20 | PDOC ---
Documentation entered by Franci Damon SCRIBE, acting as scribe for Fuad Montoya MD. Fuad Montoya MD: This documentation has been prepared by the Marisol cleaning Adrianna, SCRIBE, under my direction and personally reviewed by me in its entirety. I confirm that the documentation accurately reflects all work, treatment, procedures, and medical decision making performed by me. History of Present Illness - General Chief Complaint: Syncope/Near Syncope Stated Complaint: SYNCOPE - History of Present Illness Initial Comments: 84 Y M, with PMH HTN, BPH, and chronic leukopenia, presents with one day of syncope. Patient was admitted to 4 days ago for chest pain, and discharged two days ago. He reports waking up earlier this morning to urinate, when he felt sudden onset chest heaviness. Patient notes he was walking back to his room to lie down, when he fainted in the hallway. He endorses LOC and hitting the right side of his head on the wall when he fell. Patient is unsure how long he was on the floor for, and did not know he was going to pass out at that time. He reports mild chest heaviness, weakness in bilateral upper and lower extremities , and a diffuse forehead headache while in the ED. Denies any changes in vision. Patient is able to state the date, year, month, and day. Allergies: Penicillins, dairy Surgical History: Right inguinal hernia repair, cataract excision Social History: Denies EtOH, tobacco, or illicit drug use PCP: Dr. Juan C Thrasher Past History - Past Medical History Allergies/Adverse Reactions: Allergies Allergy/AdvReac Type Severity Reaction Status Date / Time Penicillins Allergy Verified 06/30/19 07:58 Home Medications: Ambulatory Orders Losartan Potassium [Cozaar] 100 mg PO DAILY 01/25/12 Multivitamin [Multiple Vitamins] 1 each PO DAILY 08/10/18 Finasteride [Proscar -] 5 mg PO DAILY 06/26/19 Netarsudil Mesylate [Rhopressa] 2.5 ml OP DAILY 06/28/19 Anemia: No Asthma: No Cancer: No Cardiac Disorders: No CVA: No COPD: No CHF: No Dementia: No Diabetes: No GI Disorders: No Disorders: No HTN: Yes Hypercholesterolemia: No Liver Disease: No Seizures: No Thyroid Disease: No - Surgical History Abdominal Surgery: Yes (right inguinal hernia repair) Cardiac Surgery: No Lung Surgery: No Neurologic Surgery: No - Suicide/Smoking/Psychosocial Hx Smoking Status: No Smoking History: Never smoked Have you smoked in the past 12 months: No Number of Cigarettes Smoked Daily: 0 Hx Alcohol Use: No Drug/Substance Use Hx: No Substance Use Type: None Hx Substance Use Treatment: No Cardiac Specific PMH - Complaint Specific PMHX Pacemaker: No Review of Systems - Review of Systems Comments:: CONSTITUTIONAL: +Weakness of bilateral upper and lower extremities. No fever, no chills, no fatigue HEAD: +Right-sided head contusion secondary to passing out. EYES: No visual changes ENT: No ear pain, no sore throat CARDIOVASCULAR: +Syncope. +Mild chest heaviness. +LOC. No palpitations RESPIRATORY: No cough, no SOB GI: No abdominal pain, no nausea, no vomiting, no constipation, no diarrhea GENITOURINARY: No dysuria, no frequency, no hematuria MUSKULOSKELETAL: No back pain, no joint pain, no myalgias SKIN: No rash NEURO: +Diffuse forehead headache. *Physical Exam - Vital Signs Last Vital Signs Temp Pulse Resp BP Pulse Ox 97.9 F 76 18 114/62 98 06/30/19 07:56 06/30/19 07:56 06/30/19 07:56 06/30/19 07:56 06/30/19 08:20 - Physical Exam Comments: CONSTITUTIONAL: Well-appearing; well-nourished; in no apparent distress HEAD: Normocephalic; atraumatic EYES: PERRL; EOM intact ENMT: External appears normal; normal oropharynx NECK: Supple; non-tender; no cervical lymphadenopathy CARD: Normal S1, S2; no murmurs, rubs, or gallops RESP: Normal chest excursion with respiration; breath sounds clear and equal bilaterally; no wheezes, rhonchi, or rales ABD: Soft, non-distended; non-tender; no palpable organomegaly, no palpable hernias EXT: Normal ROM in all four extremities; non-tender to palpation; distal pulses intact SKIN: Warm, dry, no rash NEURO: Alert, awake, appropriate. Cranial nerves 2-12 intact. No deficits to light touch and temperature in face, upper extremities and lower extremities. No motor deficits in the in face, upper extremities and lower extremities. Normoreflexic in the upper and lower extremities. Normal speech. Toes are down- going bilaterally. Gait is normal without ataxia. Heart Score/ECG Review - Age Age: >/= 65 - Risk Factors Risk Factors Heart Score: Yes Hx Hypertension - ECG Intrepretation Rhythm: Regular Rhythm - ECG Impressions Normal ECG: Yes Comment:: Vent rate 62bpm. SD interval 202ms. QRS duration 88ms. Qt/QTc 384/389ms. P-R-T axes 73 61 61. ED Treatment Course - LABORATORY CBC & Chemistry Diagram: 06/30/19 09:12 06/30/19 09:12 - ADDITIONAL ORDERS Additional order review: Laboratory Results 06/30/19 06/30/19 06/30/19 09:12 09:12 09:12 PT with INR 12.30 INR 1.04 Sodium 142 Potassium 4.4 Chloride 104 Carbon Dioxide 34 H Anion Gap 4 L BUN 20.2 H Creatinine 1.0 Est GFR (CKD-EPI)AfAm 78.64 Est GFR (CKD-EPI)NonAf 67.85 Random Glucose 94 Calcium 9.2 Total Bilirubin 0.6 AST 40 H ALT 54 Alkaline Phosphatase 82 Creatine Kinase 172 Creatine Kinase Index 1.2 CK-MB (CK-2) 2.1 Troponin I < 0.02 Total Protein 6.8 Albumin 3.8 06/30/19 09:12 RBC 4.66 MCV 87.1 MCHC 33.8 RDW 16.2 H MPV 8.5 Neutrophils % 42.0 L Lymphocytes % 37.4 Monocytes % 19.7 H Eosinophils % 0.7 Basophils % 0.2 - RADIOLOGY Radiology Studies Ordered: Category Date Time Status HEAD CT WITHOUT CONTRAST [CT] Stat CT Scan 06/30/19 08:36 Completed CHEST X-RAY PORTABLE* [RAD] Stat Radiology 06/30/19 08:36 Completed Radiograph Interpretation: EXAM#: TYPE/EXAM: RESULT: [id number] RAD/CHEST X-RAY PORTABLE* Portable chest: Syncopal episode Impression: No acute chest pathology. No change of an adverse nature since prior study Reported By: Arnold Grant MD 06/30/19 09:04 EXAM#: TYPE/EXAM: RESULT: [id number] CT/HEAD CT WITHOUT CONTRAST Syncope. Status post head injury Impression: Moderate atrophy and mild periventricular chronic microvascular ischemic disease changes. No gross evidence of a focal intracranial lesion or hemorrhage is seen. Correlate clinically to determine further evaluation and follow-up. Reported By: Dawn Oleary MD 06/30/19 11:34 Medical Decision Making - Medical Decision Making 06/30/19 13:17 Patient is a well-appearing 84-year-old male with history of hypertension, BPH and chronic leukopenia, recently discharged from [facility] where he was evaluated for chest pain presents after an unwitnessed syncopal episode. Patient reports that he was walking from the bathroom when without warning he lost consciousness and struck the right side of his head. Patient remained unconscious for an unknown period of time. Patient denies any other associated injuries or symptomatology. The initial EKG shows no evidence of acute ischemia or dysrhythmia. Serial neurological evaluations reveal no focal deficits. CBC is consistent with chronic leukopenia without significant drop in hematocrit. CMP reveals unchanged BUN and creatinine negative cardiac enzymes. Patient had refused a stress test prior to discharge but was found to have diastolic dysfunction on the echocardiogram with a preserved ejection fraction of approximately 60%. Patient will be placed in observation for serial enzymes and stress testing. *DC/Admit/Observation/Transfer Diagnosis at time of Disposition: Syncope Qualifiers: Syncope type: unspecified Qualified Code(s): R55 - Syncope and collapse Head injury, closed Qualifiers: Encounter type: initial encounter Qualified Code(s): S09.90XA - Unspecified injury of head, initial encounter - Discharge Dispostion Condition at time of disposition: Fair Decision to Admit order: Yes - Referrals Referrals: Juan C Thrasher MD [Primary Care Provider] - - Patient Instructions - Post Discharge Activity
--- NOTE | 2019-06-30 15:18 | HP ---
CHIEF COMPLAINT: chest pain and syncope PCP: Dr Juan C Thrasher HISTORY OF PRESENT ILLNESS: 84 y/o M with a PMH of BPH, HTN, and chronic leukopenia presented to the ED with complaints of chest pain and syncope. Patient explained that he was in the bathroom when the chest pain started. The pain is sharp, non radiating and associated with blurry vision, loss of consciousness with head trauma on the right temporal region lasting 5 minutes. No aggravating or relieving factors noted by patient. pain 10/10 at the time and 6/10 in ED. Patient denied any specific deficits but endorsed generalized weakness. Patient admits to taking his medication religiously. Apart from his recent admission for chest pain on , these symptoms are new to him as per patient. ER course was notable for: (1) Head CT w/o contrast & chest Xray (2) troponins negx1 <0.02, CKMB 2.1 (3)CBC, CMP, PT/INR, CKP Recent Travel:none PAST MEDICAL HISTORY: BPH, HTN, Chronic leukopenia, glaucoma PAST SURGICAL HISTORY: L inguinal repair Social History: Smoking:none Alcohol: none Drugs: none Family History: no family Hx of stroke or syncope Allergies Penicillins Allergy (Verified 06/30/19 07:58) HOME MEDICATIONS: Home Medications Medication Instructions Recorded Losartan Potassium [Cozaar] 100 mg PO DAILY 01/25/12 Multivitamin [Multiple Vitamins] 1 each PO DAILY 08/10/18 Finasteride [Proscar -] 5 mg PO DAILY 06/26/19 Netarsudil Mesylate [Rhopressa] 2.5 ml OP DAILY 06/28/19 REVIEW OF SYSTEMS CONSTITUTIONAL: Absent: fever, chills, diaphoresis, generalized weakness, malaise, loss of appetite, weight change HEENT: Absent: rhinorrhea, nasal congestion, throat pain, throat swelling, difficulty swallowing, mouth swelling, ear pain, eye pain, visual changes CARDIOVASCULAR: chest pain, syncope Absent: palpitations, irregular heart rate, lightheadedness, peripheral edema RESPIRATORY: Absent: cough, shortness of breath, dyspnea with exertion, orthopnea, wheezing, stridor, hemoptysis GASTROINTESTINAL: Absent: abdominal pain, abdominal distension, nausea, vomiting, diarrhea, constipation, melena, hematochezia GENITOURINARY: Absent: dysuria, frequency, urgency, hesitancy, hematuria, flank pain, genital pain MUSCULOSKELETAL: Absent: myalgia, arthralgia, joint swelling, back pain, neck pain SKIN: Absent: rash, itching, pallor HEMATOLOGIC/IMMUNOLOGIC: Absent: easy bleeding, easy bruising, lymphadenopathy, frequent infections ENDOCRINE: Absent: unexplained weight gain, unexplained weight loss, heat intolerance, cold intolerance NEUROLOGIC: headache Absent: focal weakness or paresthesias, dizziness, unsteady gait, seizure, mental status changes, bladder or bowel incontinence PSYCHIATRIC: Absent: anxiety, depression, suicidal or homicidal ideation, hallucinations. PHYSICAL EXAMINATION Vital Signs - 24 hr 06/30/19 06/30/19 07:56 08:20 Temperature 97.9 F Pulse Rate 76 Respiratory 18 Rate Blood Pressure 114/62 O2 Sat by Pulse 97 98 Oximetry (%) GENERAL: Awake, alert, and fully oriented, in no acute distress. HEAD: Normal with no signs of trauma but tenderness on right temporal region EYES: Pupils equal, round and reactive to light, extraocular movements intact, sclera anicteric, conjunctiva clear. No lid lag. EARS, NOSE, THROAT: Ears normal, nares patent, oropharynx clear without exudates. Moist mucous membranes. NECK: Normal range of motion, supple without lymphadenopathy, JVD, or masses. LUNGS: Breath sounds equal, clear to auscultation bilaterally. No wheezes, and no crackles. No accessory muscle use. HEART: Regular rate and rhythm, normal S1 and S2 without murmur, rub or gallop. ABDOMEN: Soft, nontender, not distended, normoactive bowel sounds, no guarding, no rebound, no masses. No hepatomegaly or splenomegaly. MUSCULOSKELETAL: Normal range of motion at all joints. UPPER EXTREMITIES: 2+ pulses, warm, well-perfused. No cyanosis. No clubbing. No peripheral edema. LOWER EXTREMITIES: 2+ pulses, warm, well-perfused. No calf tenderness. No peripheral edema. NEUROLOGICAL: Cranial nerves II-XII intact. Normal speech. Normal gait. PSYCHIATRIC: Cooperative. Good eye contact. Appropriate mood and affect. SKIN: Warm, dry, normal turgor, no rashes or lesions noted, normal capillary refill. Laboratory Results - last 24 hr 06/30/19 06/30/19 06/30/19 09:12 09:12 09:12 WBC 2.3 L RBC 4.66 Hgb 13.7 Hct 40.6 MCV 87.1 MCH 29.5 MCHC 33.8 RDW 16.2 H Plt Count 159 MPV 8.5 Absolute Neuts (auto) 0.9 L Neutrophils % 42.0 L Lymphocytes % 37.4 Monocytes % 19.7 H Eosinophils % 0.7 Basophils % 0.2 Nucleated RBC % 0 PT with INR INR Sodium 142 Potassium 4.4 Chloride 104 Carbon Dioxide 34 H Anion Gap 4 L BUN 20.2 H Creatinine 1.0 Est GFR (CKD-EPI)AfAm 78.64 Est GFR (CKD-EPI)NonAf 67.85 Random Glucose 94 Calcium 9.2 Total Bilirubin 0.6 AST 40 H ALT 54 Alkaline Phosphatase 82 Creatine Kinase 172 Creatine Kinase Index 1.2 CK-MB (CK-2) 2.1 Troponin I < 0.02 Total Protein 6.8 Albumin 3.8 06/30/19 09:12 WBC RBC Hgb Hct MCV MCH MCHC RDW Plt Count MPV Absolute Neuts (auto) Neutrophils % Lymphocytes % Monocytes % Eosinophils % Basophils % Nucleated RBC % PT with INR 12.30 INR 1.04 Sodium Potassium Chloride Carbon Dioxide Anion Gap BUN Creatinine Est GFR (CKD-EPI)AfAm Est GFR (CKD-EPI)NonAf Random Glucose Calcium Total Bilirubin AST ALT Alkaline Phosphatase Creatine Kinase Creatine Kinase Index CK-MB (CK-2) Troponin I Total Protein Albumin ASSESSMENT/PLAN: 84 y/o M with a PMH of BPH, HTN, and chronic leukopenia presented to the ED with complaints of chest pain and syncope Chest pain Rule out ACS Aspirin 81 mg Hold off nytroglycerin 2/2 possibility of orthostatic cause of syncope trend troponins neg X1 (<0.02) Head CT 06/30/19 showed Moderate atrophy and mild periventricular chronic microvascular ischemic disease changes. No gross evidence of a focal intracranial lesion or hemorrhage is seen. Chest Xray 06/30/19 showed No acute chest pathology. No change of an adverse nature since prior study lipid panel from 06/26 admission TSH HbA1C f/u with ecg stress test Syncope orthostatics vitals in the morning ordered tele obs carotid doppler 06/30/19 showed Intimal thickening and [id number] size plaques at the right common carotid bifurcation without evidence of hemodynamically significant stenosis. Moderate-size plaques are present at the origin of the right external carotid artery. There is also intimal thickening and small plaques at the left common carotid bifurcation without evidence of hemodynamically significant stenosis Diet Cardiac diet DVT Hep SubQ Problem List - Problem (1) Syncope Code(s): R55 - SYNCOPE AND COLLAPSE Qualifiers: Syncope type: unspecified Qualified Code(s): R55 - Syncope and collapse (2) Chest pain Code(s): R07.9 - CHEST PAIN, UNSPECIFIED Qualifiers: Chest pain type: unspecified Qualified Code(s): R07.9 - Chest pain, unspecified Visit type - Emergency Visit Emergency Visit: Yes ED Registration Date: 06/30/19 Care time: The patient presented to the Emergency Department on the above date and was hospitalized for further evaluation of their emergent condition. - New Patient This patient is new to me today: Yes Date on this admission: 06/30/19 - Critical Care Critical Care patient: No ATTENDING PHYSICIAN STATEMENT I saw and evaluated the patient. I reviewed the resident's note and discussed the case with the resident. I agree with the resident's findings and plan as documented. SUBJECTIVE: OBJECTIVE: ASSESSMENT AND PLAN:
[2019-06-30] MEDS ORDERED: ASPIRIN 81 MG CHEWABLE TABLETS ONE (15:59)
[2019-06-30] MEDS: ASPIRIN 81 MG CHEWABLE TABLETS PO SCH (16:09)
--- NOTE | 2019-06-30 16:31 | PN ---
Teaching Attending Note Name of Resident: Amparo Wade ATTENDING PHYSICIAN STATEMENT I saw and evaluated the patient. I reviewed the resident's note and discussed the case with the resident. I agree with the resident's findings and plan as documented. SUBJECTIVE: This is an 84 year old man with a history of HTN, BPH, leukopenia who comes to the ED after passing out in his bathroom. He was admitted with chest pain. EKG showed no ischemic changes. Troponin was negative x3. Echo was unremarkable. He refused stress test. Today after urinating, he turned, developed sharp mid chest pain, and passed out hitting the right side of his head on the wall. He thinks he was unconscious for about 5 minutes. He currently denies chest pain, palpitations, SOB, dizziness. OBJECTIVE: Vital Signs Period Temp Pulse Resp BP Sys/Werner Pulse Ox Last 24 Hr 97.9 F 52-76 18 114-118/62-67 97-98 HEART: S1S2, RRR LUNGS: Clear ABDOMEN: Soft, non-tender, non-distended, normal BS EXTREMITIES: Trace edema Laboratory Tests 06/30/19 06/30/19 06/30/19 09:12 09:12 09:12 WBC 2.3 L RBC 4.66 Hgb 13.7 Hct 40.6 MCV 87.1 MCH 29.5 MCHC 33.8 RDW 16.2 H Plt Count 159 MPV 8.5 Absolute Neuts (auto) 0.9 L Neutrophils % 42.0 L Lymphocytes % 37.4 Monocytes % 19.7 H Eosinophils % 0.7 Basophils % 0.2 Nucleated RBC % 0 PT with INR INR Sodium 142 Potassium 4.4 Chloride 104 Carbon Dioxide 34 H Anion Gap 4 L BUN 20.2 H Creatinine 1.0 Est GFR (CKD-EPI)AfAm 78.64 Est GFR (CKD-EPI)NonAf 67.85 Random Glucose 94 Calcium 9.2 Total Bilirubin 0.6 AST 40 H ALT 54 Alkaline Phosphatase 82 Creatine Kinase 172 Creatine Kinase Index 1.2 CK-MB (CK-2) 2.1 Troponin I < 0.02 Total Protein 6.8 Albumin 3.8 06/30/19 09:12 WBC RBC Hgb Hct MCV MCH MCHC RDW Plt Count MPV Absolute Neuts (auto) Neutrophils % Lymphocytes % Monocytes % Eosinophils % Basophils % Nucleated RBC % PT with INR 12.30 INR 1.04 Sodium Potassium Chloride Carbon Dioxide Anion Gap BUN Creatinine Est GFR (CKD-EPI)AfAm Est GFR (CKD-EPI)NonAf Random Glucose Calcium Total Bilirubin AST ALT Alkaline Phosphatase Creatine Kinase Creatine Kinase Index CK-MB (CK-2) Troponin I Total Protein Albumin Home Medications Medication Instructions Recorded Losartan Potassium [Cozaar] 100 mg PO DAILY 01/25/12 Multivitamin [Multiple Vitamins] 1 each PO DAILY 08/10/18 Finasteride [Proscar -] 5 mg PO DAILY 06/26/19 Netarsudil Mesylate [Rhopressa] 2.5 ml OP DAILY 06/28/19 ASSESSMENT AND PLAN: This is an 84 year old man with a history of HTN, BPH, leukopenia, recent admission for chest pain who presented to the ED with chest pain and syncope. 1. Syncope - Possibly vasovagal, micturition syncope, orthostatic hypotension - Monitor on telemetry - Check orthostatic vitals - Echo (06/28) showed normal LV, no wall motion abnormalities, LVEF 60-65%, grade II diastolic dysfunction, normal RV systolic function, mild to moderate MR , mild to moderate TR, mild TX - Carotid dopplers show intimal thickening and small to moderate plaques at right common carotid bifurcation with no hemodynamically significant stenosis; moderate plaques at origin or right external carotid; intimal thickening and small plaques at left common carotid bifurcation with no hemodynamically significant stenosis 2. Chest pain - Monitor on telemetry - Serial troponins - Aspirin - Cardiology consult 3. HTN - Continue Cozaar 4. BPH - Continue Proscar
[2019-06-30] MEDS: HEPARIN NA (PORCINE) 5,000 UNITS/ML 1ML VIAL SQ SCH (21:54)
[2019-07-01] MEDS: HEPARIN NA (PORCINE) 5,000 UNITS/ML 1ML VIAL SQ SCH ×3 (05:05→21:05)
[2019-07-01] MEDS ORDERED: ACETAMINOPHEN 325 MG TABLET (FP) PO PRN (06:07)
[2019-07-01] MEDS: LOSARTAN POTASSIUM 50 MG TABLET (FP) PO SCH ×2 (06:24→09:34)
[2019-07-01 06:44] LABS: BASO % 0.7 % (0-2.0); EOS % 1.7 % (0-4.5); HEMATOCRIT 42.4 % (35.4-49); HEMOGLOBIN 14.5 GM/dL (11.7-16.9); LYMPH % 47.2 % (8-40); MCH 29.6 pg (25.7-33.7); MCHC 34.2 g/dl (32.0-35.9); MEAN CELL VOLUME 86.6 fl (80-96); MEAN PLT VOLUME 8.5 fl (7.5-11.1); MONO % 17.8 % (3.8-10.2); NEUT % 32.6 % (42.8-82.8); PLATELET COUNT 177 K/MM3 (134-434); RBC 4.89 M/mm3 (4.00-5.60); RDW 15.8 % (11.9-15.9); WHITE BLOOD COUNT 2.4 K/mm3 (4.0-10.0)
[2019-07-01 07:12] LABS: ALBUMIN 3.9 g/dl (3.4-5.0); BILIRUBIN,TOTAL 0.9 mg/dL (0.2-1); BLOOD UREA NITROGEN 18.2 mg/dL (7-18); CALCIUM 9.1 mg/dL (8.5-10.1); CREATININE 0.9 mg/dL (0.55-1.3); MAGNESIUM 2.5 mg/dL (1.8-2.4); PHOSPHOROUS 3.1 mg/dL (2.5-4.9); POTASSIUM 3.7 mmol/L (3.5-5.1)
[2019-07-01] MEDS: ASPIRIN 81 MG CHEWABLE TABLETS PO SCH (09:34)
[2019-07-01] MEDS: FINASTERIDE 5 MG TABLET (FP) PO SCH (09:37)
[2019-07-01] MEDS ORDERED: LOSARTAN POTASSIUM 50 MG TABLET (FP) PO SCH ×2 (10:00)
--- NOTE | 2019-07-01 15:26 | CONSULT ---
Consultation: REQUESTING PROVIDER: Amparo Wade- Internal medicine CONSULT REQUEST: We have been asked to medically evaluate this patient for ( specify). HISTORY OF PRESENT ILLNESS: 84 y/o M, pmh of HTN, BPH, presents to the ED s/p Fall. Pt reports that he was in the bathroom urinating, when he began to feel dizzy and developed a nonradiating, constant, dull, tightening left sided chest pain that did not improve, therefore, pt attempted to walk to his bedroom to rest, when he passed out and hit the right side of his head on the side wall of his hallway. Pt is unsure how long he was down, but he regained consciousness. Pt reports the chest pain was still present after he regained consciousness and did not improve till he took some aspirin. Pt was at [place] 2 weeks ago for a similar chest pain, but at that time the pain was more severe and radiated to his left shoulder. Pt admits to having mild chest pain for several months now, associated with walking upstairs or walking a few blocks, during which resting relieves the pain. Pt had a exercise stress test several years ago but he does not recall the results. During his last visit at [facility], pt refused a stress test. Currently, pt is asymptomatic and symptoms have improved. Denies f/c/n/v/d , sob, numbness or tingling. REVIEW OF SYSTEMS: CONSTITUTIONAL: Admits: generalized weakness, Absent: fever, chills, diaphoresis, malaise, loss of appetite, HEENT: Absent: eye pain, visual changes CARDIOVASCULAR: Admits: syncope, chest pain, lightheadedness Absent: palpitations, irregular heart rate, RESPIRATORY: Absent: cough, shortness of breath, dyspnea with exertion, orthopnea, wheezing, GASTROINTESTINAL: Absent: abdominal pain, abdominal distension, nausea, vomiting, diarrhea, constipation, melena, GENITOURINARY: Absent: dysuria, frequency, hematuria, flank pain MUSCULOSKELETAL: Absent: back pain, NEUROLOGIC: Admits: dizziness, Absent: headache, unsteady gait, seizure, mental status changes, bladder or bowel incontinence PSYCHIATRIC: Absent: anxiety PHYSICAL EXAMINATION Vital Signs - 24 hr Last Vital Signs Temp Pulse Resp BP Pulse Ox 98.0 F 71 18 135/72 99 07/01/19 08:13 07/01/19 13:00 07/01/19 14:58 07/01/19 10:41 07/01/19 14:58 GENERAL: Awake, alert, and fully oriented, in no acute distress. EYES: Pupils equal, round and reactive to light, extraocular movements intact EARS, NOSE, THROAT: oropharynx clear without exudates. Moist mucous membranes. NECK: supple without lymphadenopathy, JVD, or masses, no bruit. LUNGS: Breath sounds equal, clear to auscultation bilaterally. No wheezes, and no crackles. HEART: Regular rate and rhythm, normal S1 and S2 without murmur, rub or gallop. ABDOMEN: Soft, nontender, not distended, normoactive bowel sounds, no guarding, no rebound, no masses. No hepatomegaly or splenomegaly. UPPER EXTREMITIES: 2+ pulses, warm, well-perfused. No cyanosis. No peripheral edema. LOWER EXTREMITIES: 2+ pulses, warm, well-perfused. No peripheral edema. NEUROLOGICAL: Cranial nerves II-XII intact. Normal speech. PSYCHIATRIC: Cooperative. Good eye contact. Appropriate mood and affect. Laboratory Results - last 24 hr CBC, BMP 07/01/19 06:15 07/01/19 06:15 Active Medications Generic Name Dose Route Start Last Admin Trade Name Freq PRN Reason Stop Dose Admin Acetaminophen 650 mg 07/01/19 06:07 Tylenol - PO Q6H PRN Fever Aspirin 81 mg 06/30/19 15:15 07/01/19 09:34 Asa - PO 81 mg DAILY NIELS Administration Finasteride 5 mg 07/01/19 10:00 07/01/19 09:37 Proscar - PO 5 mg DAILY NIELS Administration Heparin Sodium (Porcine) 5,000 unit 06/30/19 22:00 07/01/19 14:14 Heparin - SQ 5,000 unit TID NIELS Administration Losartan Potassium 100 mg 07/01/19 06:15 07/01/19 09:34 Cozaar - PO 100 mg DAILY NIELS Administration ASSESSMENT/PLAN: 84 y/o M, pmh of HTN, BPH, presents to the ED s/p Fall associated w/ chest pain of one day duration, #Fall likely 2/2 to vasovagal/reflex vs situational vs cardiogenic CT head-no acute changes continue to monitor on tele monitor vitals #Chest Pain likely 2/2 unstable vs stable angina r/o ACS Monitor on tele continue to trend trops EKG- no acute changes continue Aspirin Nuclear stress test recommended #HTN continue home meds- Losartan monitor BP #DVT ppx SCDs FEN: sodium controlled diet Dispo: We will continue to follow the patient. Thank you for this consultative opportunity. <Kevon Hernandez - Last Filed: 07/01/19 16:09> Consultation: REQUESTING PROVIDER: CONSULT REQUEST: We have been asked to medically evaluate this patient for ( specify). HISTORY OF PRESENT ILLNESS: REVIEW OF SYSTEMS: CONSTITUTIONAL: Absent: fever, chills, diaphoresis, generalized weakness, malaise, loss of appetite, weight change HEENT: Absent: rhinorrhea, nasal congestion, throat pain, throat swelling, difficulty swallowing, mouth swelling, ear pain, eye pain, visual changes CARDIOVASCULAR: Absent: chest pain, syncope, palpitations, irregular heart rate, lightheadedness , peripheral edema RESPIRATORY: Absent: cough, shortness of breath, dyspnea with exertion, orthopnea, wheezing, stridor, hemoptysis GASTROINTESTINAL: Absent: abdominal pain, abdominal distension, nausea, vomiting, diarrhea, constipation, melena, hematochezia GENITOURINARY: Absent: dysuria, frequency, urgency, hesitancy, hematuria, flank pain, genital pain MUSCULOSKELETAL: Absent: myalgia, arthralgia, joint swelling, back pain, neck pain SKIN: Absent: rash, itching, pallor HEMATOLOGIC/IMMUNOLOGIC: Absent: easy bleeding, easy bruising, lymphadenopathy, frequent infections ENDOCRINE: Absent: unexplained weight gain, unexplained weight loss, heat intolerance, cold intolerance NEUROLOGIC: Absent: headache, focal weakness or paresthesias, dizziness, unsteady gait, seizure, mental status changes, bladder or bowel incontinence PSYCHIATRIC: Absent: anxiety, depression, suicidal or homicidal ideation, hallucinations. PHYSICAL EXAMINATION Vital Signs - 24 hr 06/30/19 06/30/19 06/30/19 16:24 19:25 20:10 Temperature 98.2 F 98.2 F Pulse Rate 65 Pulse Rate [ 52 L 66 Left Radial] Pulse Rate [ Right side Sitting] Pulse Rate [ Right side Standing] Pulse Rate [ Right side Supine] Respiratory 18 18 Rate Blood Pressure 139/68 Blood Pressure 118/67 128/59 L [Left Arm] Blood Pressure [Right side Sitting] Blood Pressure [Right side Standing] Blood Pressure [Right side Supine] O2 Sat by Pulse 98 97 Oximetry (%) 08/28/19 08/29/19 08/29/19 21:10 00:00 05:00 Temperature 98.1 F 97.9 F Pulse Rate 59 L 67 Pulse Rate [ Left Radial] Pulse Rate [ Right side Sitting] Pulse Rate [ Right side Standing] Pulse Rate [ Right side Supine] Respiratory 18 18 Rate Blood Pressure 158/79 141/66 Blood Pressure [Left Arm] Blood Pressure [Right side Sitting] Blood Pressure [Right side Standing] Blood Pressure [Right side Supine] O2 Sat by Pulse 99 Oximetry (%) 07/01/19 07/01/19 07/01/19 07:00 08:11 08:13 Temperature 98.0 F 98.0 F Pulse Rate 69 69 Pulse Rate [ Left Radial] Pulse Rate [ 74 Right side Sitting] Pulse Rate [ 79 Right side Standing] Pulse Rate [ 78 Right side Supine] Respiratory 18 18 Rate Blood Pressure 143/70 143/70 Blood Pressure [Left Arm] Blood Pressure 138/72 [Right side Sitting] Blood Pressure 134/66 [Right side Standing] Blood Pressure 141/72 [Right side Supine] O2 Sat by Pulse 99 Oximetry (%) 07/01/19 07/01/19 07/01/19 10:41 13:00 14:00 Temperature 98.1 F Pulse Rate 67 71 66 Pulse Rate [ Left Radial] Pulse Rate [ Right side Sitting] Pulse Rate [ Right side Standing] Pulse Rate [ Right side Supine] Respiratory 18 Rate Blood Pressure 135/72 155/64 Blood Pressure [Left Arm] Blood Pressure [Right side Sitting] Blood Pressure [Right side Standing] Blood Pressure [Right side Supine] O2 Sat by Pulse Oximetry (%) 07/01/19 14:58 Temperature Pulse Rate Pulse Rate [ Left Radial] Pulse Rate [ Right side Sitting] Pulse Rate [ Right side Standing] Pulse Rate [ Right side Supine] Respiratory 18 Rate Blood Pressure Blood Pressure [Left Arm] Blood Pressure [Right side Sitting] Blood Pressure [Right side Standing] Blood Pressure [Right side Supine] O2 Sat by Pulse 99 Oximetry (%) GENERAL: Awake, alert, and fully oriented, in no acute distress. HEAD: Normal with no signs of trauma. EYES: Pupils equal, round and reactive to light, extraocular movements intact, sclera anicteric, conjunctiva clear. No lid lag. EARS, NOSE, THROAT: Ears normal, nares patent, oropharynx clear without exudates. Moist mucous membranes. NECK: Normal range of motion, supple without lymphadenopathy, JVD, or masses. LUNGS: Breath sounds equal, clear to auscultation bilaterally. No wheezes, and no crackles. No accessory muscle use. HEART: Regular rate and rhythm, normal S1 and S2 without murmur, rub or gallop. ABDOMEN: Soft, nontender, not distended, normoactive bowel sounds, no guarding, no rebound, no masses. No hepatomegaly or splenomegaly. MUSCULOSKELETAL: Normal range of motion at all joints. No bony deformities or tenderness. No CVA tenderness. UPPER EXTREMITIES: 2+ pulses, warm, well-perfused. No cyanosis. No clubbing. Cap refill <2 seconds. No peripheral edema. LOWER EXTREMITIES: 2+ pulses, warm, well-perfused. No calf tenderness. No peripheral edema. NEUROLOGICAL: Cranial nerves II-XII intact. Normal speech. Normal gait. PSYCHIATRIC: Cooperative. Good eye contact. Appropriate mood and affect. SKIN: Warm, dry, normal turgor, no rashes or lesions noted. Laboratory Results - last 24 hr 06/30/19 07/01/19 07/01/19 17:15 05:15 06:15 WBC 2.4 L RBC 4.89 Hgb 14.5 Hct 42.4 MCV 86.6 MCH 29.6 MCHC 34.2 RDW 15.8 Plt Count 177 MPV 8.5 Absolute Neuts (auto) 0.8 L Neutrophils % 32.6 L D Lymphocytes % 47.2 H D Monocytes % 17.8 H Eosinophils % 1.7 D Basophils % 0.7 D Nucleated RBC % 0 Sodium Potassium Chloride Carbon Dioxide Anion Gap BUN Creatinine Est GFR (CKD-EPI)AfAm Est GFR (CKD-EPI)NonAf Random Glucose Hemoglobin A1c % 5.6 Calcium Phosphorus Magnesium Total Bilirubin AST ALT Alkaline Phosphatase Troponin I < 0.02 Total Protein Albumin TSH Free T4 07/01/19 06:15 WBC RBC Hgb Hct MCV MCH MCHC RDW Plt Count MPV Absolute Neuts (auto) Neutrophils % Lymphocytes % Monocytes % Eosinophils % Basophils % Nucleated RBC % Sodium 140 Potassium 3.7 Chloride 103 Carbon Dioxide 30 Anion Gap 7 L BUN 18.2 H Creatinine 0.9 Est GFR (CKD-EPI)AfAm 89.32 Est GFR (CKD-EPI)NonAf 77.06 Random Glucose 84 Hemoglobin A1c % Calcium 9.1 Phosphorus 3.1 Magnesium 2.5 H Total Bilirubin 0.9 AST 62 H ALT 82 H Alkaline Phosphatase 82 Troponin I Total Protein 7.0 Albumin 3.9 TSH 3.76 H Free T4 1.09 Active Medications Generic Name Dose Route Start Last Admin Trade Name Freq PRN Reason Stop Dose Admin Acetaminophen 650 mg 07/01/19 06:07 Tylenol - PO Q6H PRN Fever Aspirin 81 mg 06/30/19 15:15 07/01/19 09:34 Asa - PO 81 mg DAILY NIELS Administration Atorvastatin Calcium 20 mg 07/01/19 22:00 Lipitor - PO HS NIELS Finasteride 5 mg 07/01/19 10:00 07/01/19 09:37 Proscar - PO 5 mg DAILY NIELS Administration Heparin Sodium (Porcine) 5,000 unit 06/30/19 22:00 07/01/19 14:14 Heparin - SQ 5,000 unit TID NIELS Administration Losartan Potassium 100 mg 07/01/19 06:15 07/01/19 09:34 Cozaar - PO 100 mg DAILY NIELS Administration ASSESSMENT/PLAN: Dispo: We will continue to follow the patient. Thank you for this consultative opportunity. <Gabriele Barnhart - Last Filed: 07/01/19 16:14> Visit type - Emergency Visit Emergency Visit: Yes ED Registration Date: 06/30/19 Care time: The patient presented to the Emergency Department on the above date and was hospitalized for further evaluation of their emergent condition. - New Patient This patient is new to me today: Yes Date on this admission: 07/01/19 - Critical Care Critical Care patient: No <Gabriele Barnhart - Last Filed: 07/01/19 16:14> ATTENDING PHYSICIAN STATEMENT I saw and evaluated the patient. I reviewed the resident's note and discussed the case with the resident. I agree with the resident's findings and plan as documented. SUBJECTIVE: OBJECTIVE: ASSESSMENT AND PLAN: <Kevon Hernandez - Last Filed: 07/01/19 16:09> ATTENDING PHYSICIAN STATEMENT I saw and evaluated the patient. I reviewed the resident's note and discussed the case with the resident. I agree with the resident's findings and plan as documented. SUBJECTIVE: OBJECTIVE: ASSESSMENT AND PLAN: <Gabriele Barnhart - Last Filed: 07/01/19 16:14>
[2019-07-01] MEDS ORDERED: ATORVASTATIN CA 20 MG TABLET (FP) PO ONE (16:03)
--- NOTE | 2019-07-01 16:11 | CON.CARD ---
Cardiology Consult (text) - Consultation Consultation Note: Pt was seen with Dr. Hernandez and for details see his note. I reviewed the details , history exam and plan with him and agree with the findings. My impression is as follows: 84 M with HTN and BPH with chronic angina has noted recent increase in frequency of symptoms especially with emotional distress and was admitted last week. Echocardiogram and ECG were normal and CELESTE negative. He is readmitted after developing dizziness and chest discomfort followed by syncope. ECG is unchanged and enzymes are negative. He is not orthostatic and exam is unremarkable 1. Syncope: History is suggestive of vasovagal (reflex) syncope. Continue telemetry monitoring for 24 hours. 2. Lexiscan nuclear stress test.
--- NOTE | 2019-07-01 16:12 | PN ---
Teaching Attending Note Name of Resident: Amparo Wade ATTENDING PHYSICIAN STATEMENT I saw and evaluated the patient. I reviewed the resident's note and discussed the case with the resident. I agree with the resident's findings and plan as documented. SUBJECTIVE: Patient is comfortable with no acute distress. OBJECTIVE: Vital Signs Temperature 98.1 F 07/01/19 14:00 Pulse Rate 66 07/01/19 14:00 Respiratory Rate 18 07/01/19 14:58 Blood Pressure 155/64 07/01/19 14:00 O2 Sat by Pulse Oximetry (%) 99 07/01/19 14:58 GENERAL: The patient is awake, alert, and fully oriented, in no acute distress. HEAD: Normal with no signs of trauma. EYES: PERRL, extraocular movements intact, sclera anicteric, conjunctiva clear. ENT: Ears normal, oropharynx clear without exudates, moist mucous membranes. NECK: Trachea midline, full range of motion, supple. LUNGS: Breath sounds equal, clear to auscultation bilaterally, no wheezes, no crackles, no accessory muscle use. HEART: Regular rate and rhythm, S1, S2 without murmur, rub or gallop. ABDOMEN: Soft, nontender, nondistended, normoactive bowel sounds, no guarding, no rebound, no hepatosplenomegaly, no masses. EXTREMITIES: 2+ pulses, warm, well-perfused, no edema. NEUROLOGICAL: Cranial nerves II through XII grossly intact. Normal speech, gait not observed. PSYCH: Normal mood, normal affect. SKIN: Warm, dry, normal turgor, no rashes or lesions noted CBCD WBC 2.4 K/mm3 (4.0-10.0) L 07/01/19 06:15 RBC 4.89 M/mm3 (4.00-5.60) 07/01/19 06:15 Hgb 14.5 GM/dL (11.7-16.9) 07/01/19 06:15 Hct 42.4 % (35.4-49) 07/01/19 06:15 MCV 86.6 fl (80-96) 07/01/19 06:15 MCHC 34.2 g/dl (32.0-35.9) 07/01/19 06:15 RDW 15.8 % (11.9-15.9) 07/01/19 06:15 Plt Count 177 K/MM3 (134-434) 07/01/19 06:15 MPV 8.5 fl (7.5-11.1) 07/01/19 06:15 CMP Sodium 140 mmol/L (136-145) 07/01/19 06:15 Potassium 3.7 mmol/L (3.5-5.1) 07/01/19 06:15 Chloride 103 mmol/L (98-107) 07/01/19 06:15 Carbon Dioxide 30 mmol/L (21-32) 07/01/19 06:15 Anion Gap 7 MMOL/L (8-16) L 07/01/19 06:15 BUN 18.2 mg/dL (7-18) H 07/01/19 06:15 Creatinine 0.9 mg/dL (0.55-1.3) 07/01/19 06:15 Random Glucose 84 mg/dL (74-106) 07/01/19 06:15 Calcium 9.1 mg/dL (8.5-10.1) 07/01/19 06:15 Total Bilirubin 0.9 mg/dL (0.2-1) 07/01/19 06:15 AST 62 U/L (15-37) H 07/01/19 06:15 ALT 82 U/L (13-61) H 07/01/19 06:15 Alkaline Phosphatase 82 U/L (45-117) 07/01/19 06:15 Total Protein 7.0 g/dl (6.4-8.2) 07/01/19 06:15 Albumin 3.9 g/dl (3.4-5.0) 07/01/19 06:15 CARDIAC ENZYMES Creatine Kinase 172 U/L (26-308) 06/30/19 09:12 Troponin I < 0.02 ng/ml (0.00-0.05) 06/30/19 17:15 Current Medications Generic Name Dose Route Start Last Admin Trade Name Freq PRN Reason Stop Dose Admin Acetaminophen 650 mg 07/01/19 06:07 Tylenol - PO Q6H PRN Fever Aspirin 81 mg 06/30/19 15:15 07/01/19 09:34 Asa - PO 81 mg DAILY NIELS Administration Atorvastatin Calcium 20 mg 07/01/19 22:00 Lipitor - PO HS NIELS Finasteride 5 mg 07/01/19 10:00 07/01/19 09:37 Proscar - PO 5 mg DAILY NIELS Administration Heparin Sodium (Porcine) 5,000 unit 06/30/19 22:00 07/01/19 14:14 Heparin - SQ 5,000 unit TID NIELS Administration Losartan Potassium 100 mg 07/01/19 06:15 07/01/19 09:34 Cozaar - PO 100 mg DAILY NIELS Administration Home Medications Medication Instructions Recorded Losartan Potassium [Cozaar] 100 mg PO DAILY 01/25/12 Multivitamin [Multiple Vitamins] 1 each PO DAILY 08/10/18 Finasteride [Proscar -] 5 mg PO DAILY 06/26/19 Netarsudil Mesylate [Rhopressa] 2.5 ml OP DAILY 06/28/19 Aspirin [ASA -] 81 mg PO DAILY tab.chew 07/01/19 Atorvastatin Ca [Lipitor] 20 mg PO HS #30 tablet 07/01/19 ASSESSMENT AND PLAN: This is an 84 year old man with a history of HTN, BPH, leukopenia, recent admission for chest pain who presented to the ED with chest pain and syncope on this admission. #Syncope most likely vasovagal, micturition syncope, no orthostatic changes, Echo (06/28) showed normal LV, no wall motion abnormalities, LVEF 60-65%, grade II diastolic dysfunction, normal RV systolic function, mild to moderate MR, mild to moderate TR, mild MN Carotid dopplers show intimal thickening and small to moderate plaques at right common carotid bifurcation with no hemodynamically significant stenosis; moderate plaques at origin or right external carotid; intimal thickening and small plaques at left common carotid bifurcation with no hemodynamically significant stenosis # Chest pain ,no further pain, troponin is negative , Aspirin lipitor continue , cardio consult appreciated, going for stress test in am. # HTN Continue Cozaar # BPH Continue Proscar DVT Px: heparin.
--- NOTE | 2019-07-01 16:21 | PN ---
Physical Exam: SUBJECTIVE: Patient seen and examined. Patient's chest pain have significantly improved. OBJECTIVE: Vital Signs Period Temp Pulse Resp BP Sys/Werner Pulse Ox Last 24 Hr 97.9 F-98.2 F 52-79 18-18 118-158/59-79 97-99 GENERAL: The patient is awake, alert, and fully oriented, in no acute distress. HEAD: Normal with no signs of trauma. No more temporal tenderness. EYES: PERRL, extraocular movements intact, sclera anicteric, conjunctiva clear. No ptosis. NECK: Trachea midline, full range of motion, supple. LUNGS: Breath sounds equal, clear to auscultation bilaterally, no wheezes, no crackles, no accessory muscle use. HEART: Regular rate and rhythm, S1, S2 without murmur, rub or gallop. ABDOMEN: Soft, nontender, nondistended, normoactive bowel sounds, no guarding, no rebound, no hepatosplenomegaly, no masses. EXTREMITIES: 2+ pulses, warm, well-perfused, no edema. NEUROLOGICAL: Cranial nerves II through XII grossly intact. Normal speech, gait not observed. PSYCH: Normal mood, normal affect. SKIN: Warm, dry, normal turgor, no rashes or lesions noted Laboratory Results - last 24 hr 06/30/19 07/01/19 07/01/19 17:15 05:15 06:15 WBC 2.4 L RBC 4.89 Hgb 14.5 Hct 42.4 MCV 86.6 MCH 29.6 MCHC 34.2 RDW 15.8 Plt Count 177 MPV 8.5 Absolute Neuts (auto) 0.8 L Neutrophils % 32.6 L D Lymphocytes % 47.2 H D Monocytes % 17.8 H Eosinophils % 1.7 D Basophils % 0.7 D Nucleated RBC % 0 Sodium Potassium Chloride Carbon Dioxide Anion Gap BUN Creatinine Est GFR (CKD-EPI)AfAm Est GFR (CKD-EPI)NonAf Random Glucose Hemoglobin A1c % 5.6 Calcium Phosphorus Magnesium Total Bilirubin AST ALT Alkaline Phosphatase Troponin I < 0.02 Total Protein Albumin TSH Free T4 07/01/19 06:15 WBC RBC Hgb Hct MCV MCH MCHC RDW Plt Count MPV Absolute Neuts (auto) Neutrophils % Lymphocytes % Monocytes % Eosinophils % Basophils % Nucleated RBC % Sodium 140 Potassium 3.7 Chloride 103 Carbon Dioxide 30 Anion Gap 7 L BUN 18.2 H Creatinine 0.9 Est GFR (CKD-EPI)AfAm 89.32 Est GFR (CKD-EPI)NonAf 77.06 Random Glucose 84 Hemoglobin A1c % Calcium 9.1 Phosphorus 3.1 Magnesium 2.5 H Total Bilirubin 0.9 AST 62 H ALT 82 H Alkaline Phosphatase 82 Troponin I Total Protein 7.0 Albumin 3.9 TSH 3.76 H Free T4 1.09 Active Medications Generic Name Dose Route Start Last Admin Trade Name Freq PRN Reason Stop Dose Admin Acetaminophen 650 mg 07/01/19 06:07 Tylenol - PO Q6H PRN Fever Aspirin 81 mg 06/30/19 15:15 07/01/19 09:34 Asa - PO 81 mg DAILY NIELS Administration Atorvastatin Calcium 20 mg 07/01/19 22:00 Lipitor - PO HS NIELS Finasteride 5 mg 07/01/19 10:00 07/01/19 09:37 Proscar - PO 5 mg DAILY NIELS Administration Heparin Sodium (Porcine) 5,000 unit 06/30/19 22:00 07/01/19 14:14 Heparin - SQ 5,000 unit TID NIELS Administration Losartan Potassium 100 mg 07/01/19 06:15 07/01/19 09:34 Cozaar - PO 100 mg DAILY NIELS Administration ASSESSMENT/PLAN: 84 year old man with a history of HTN, BPH, leukopenia, recent admission for chest pain who presented to the ED with chest pain and syncope. Chest pain Rule out ACS Aspirin 81 mg Hold off nytroglycerin 2/2 possibility of orthostatic cause of syncope trend troponins neg X2 (<0.02) Head CT 06/30/19 showed Moderate atrophy and mild periventricular chronic microvascular ischemic disease changes. No gross evidence of a focal intracranial lesion or hemorrhage is seen. Chest Xray 06/30/19 showed No acute chest pathology. No change of an adverse nature since prior study lipid panel from 06/26 admission TSH found to be 3.76 , FT4 1.09 HbA1C f/u with ecg stress test tomorrow Syncope orthostatics vitals unremarkable carotid doppler 06/30/19 showed Intimal thickening and bkorq-xw-efixoblk size plaques at the right common carotid bifurcation without evidence of hemodynamically significant stenosis. Moderate-size plaques are present at the origin of the right external carotid artery. There is also intimal thickening and small plaques at the left common carotid bifurcation without evidence of hemodynamically significant stenosis DVT PPX heparin subQ Problem List - Problems (1) Syncope Code(s): R55 - SYNCOPE AND COLLAPSE Qualifiers: Syncope type: unspecified Qualified Code(s): R55 - Syncope and collapse (2) Chest pain Code(s): R07.9 - CHEST PAIN, UNSPECIFIED Qualifiers: Chest pain type: unspecified Qualified Code(s): R07.9 - Chest pain, unspecified Visit type - Emergency Visit Emergency Visit: Yes ED Registration Date: 06/30/19 Care time: The patient presented to the Emergency Department on the above date and was hospitalized for further evaluation of their emergent condition. - New Patient This patient is new to me today: No - Critical Care Critical Care patient: No - Discharge Referral Referred to [facility] Med P.C.: No ATTENDING PHYSICIAN STATEMENT I saw and evaluated the patient. I reviewed the resident's note and discussed the case with the resident. I agree with the resident's findings and plan as documented. SUBJECTIVE: OBJECTIVE: ASSESSMENT AND PLAN:
[2019-07-01] MEDS ORDERED: amLODIPine BESYLATE 5 MG TABLET (FP) PO ONE (19:52)
[2019-07-01] MEDS ORDERED: RHOPRESSA OU SCH (20:30)
[2019-07-01] MEDS ORDERED: ATORVASTATIN CA 20 MG TABLET (FP) PO SCH (22:00)
[2019-07-02] MEDS: HEPARIN NA (PORCINE) 5,000 UNITS/ML 1ML VIAL SQ SCH ×2 (05:10→13:56)
[2019-07-02 05:16] VITALS: TEMP 98.4
[2019-07-02 08:07] LABS: HEMATOCRIT 42.3 % (35.4-49); HEMOGLOBIN 14.3 GM/dL (11.7-16.9); MCH 29.4 pg (25.7-33.7); MCHC 33.7 g/dl (32.0-35.9); MEAN CELL VOLUME 87.2 fl (80-96); MEAN PLT VOLUME 8.7 fl (7.5-11.1); PLATELET COUNT 174 K/MM3 (134-434); RBC 4.85 M/mm3 (4.00-5.60); RDW 15.9 % (11.9-15.9); WHITE BLOOD COUNT 2.1 K/mm3 (4.0-10.0)
[2019-07-02 08:42] LABS: ALBUMIN 3.9 g/dl (3.4-5.0); BILIRUBIN,TOTAL 0.9 mg/dL (0.2-1); BLOOD UREA NITROGEN 16.1 mg/dL (7-18); CALCIUM 9.2 mg/dL (8.5-10.1); CREATININE 0.9 mg/dL (0.55-1.3); MAGNESIUM 2.6 mg/dL (1.8-2.4); POTASSIUM 4.2 mmol/L (3.5-5.1); TOT PROT 6.9 g/dl (6.4-8.2)
[2019-07-02] MEDS: ASPIRIN 81 MG CHEWABLE TABLETS PO SCH (09:25)
[2019-07-02] MEDS: LOSARTAN POTASSIUM 50 MG TABLET (FP) PO SCH (09:25)
[2019-07-02] MEDS: FINASTERIDE 5 MG TABLET (FP) PO SCH (09:25)
[2019-07-02] MEDS ORDERED: REGADENOSON 0.4 MG/5 ML PRE-FILLED SYRINGE IVPUSH ONE ×2 (09:55→10:00)
--- NOTE | 2019-07-02 10:23 | PN ---
Teaching Attending Note Name of Resident: Amparo Wade ATTENDING PHYSICIAN STATEMENT I saw and evaluated the patient. I reviewed the resident's note and discussed the case with the resident. I agree with the resident's findings and plan as documented. SUBJECTIVE: Patient went for stress test . otherwise comfortable, denies any chest pain. OBJECTIVE: Vital Signs Temperature 98.4 F 07/02/19 05:15 Pulse Rate 66 07/02/19 07:32 Respiratory Rate 18 07/02/19 07:32 Blood Pressure 151/74 07/02/19 07:32 O2 Sat by Pulse Oximetry (%) 100 07/02/19 07:32 GENERAL: The patient is awake, alert, and fully oriented, in no acute distress. HEAD: Normal with no signs of trauma. EYES: PERRL, extraocular movements intact, sclera anicteric, conjunctiva clear. ENT: Ears normal, oropharynx clear without exudates, moist mucous membranes. NECK: Trachea midline, full range of motion, supple. LUNGS: Breath sounds equal, clear to auscultation bilaterally, no wheezes, no crackles, no accessory muscle use. HEART: Regular rate and rhythm, S1, S2 without murmur, rub or gallop. ABDOMEN: Soft, NT,ND, normoactive bowel sounds, no guarding, no rebound, no hepatosplenomegaly, no masses. EXTREMITIES: 2+ pulses, warm, well-perfused, no edema. NEUROLOGICAL: Cranial nerves II through XII grossly intact. Normal speech, gait not observed. PSYCH: Normal mood, normal affect. SKIN: Warm, dry, normal turgor, no rashes or lesions noted CBCD WBC 2.1 K/mm3 (4.0-10.0) L 07/02/19 07:19 RBC 4.85 M/mm3 (4.00-5.60) 07/02/19 07:19 Hgb 14.3 GM/dL (11.7-16.9) 07/02/19 07:19 Hct 42.3 % (35.4-49) 07/02/19 07:19 MCV 87.2 fl (80-96) 07/02/19 07:19 MCHC 33.7 g/dl (32.0-35.9) 07/02/19 07:19 RDW 15.9 % (11.9-15.9) 07/02/19 07:19 Plt Count 174 K/MM3 (134-434) 07/02/19 07:19 MPV 8.7 fl (7.5-11.1) 07/02/19 07:19 CMP Sodium 142 mmol/L (136-145) 07/02/19 07:19 Potassium 4.2 mmol/L (3.5-5.1) 07/02/19 07:19 Chloride 105 mmol/L (98-107) 07/02/19 07:19 Carbon Dioxide 33 mmol/L (21-32) H 07/02/19 07:19 Anion Gap 4 MMOL/L (8-16) L 07/02/19 07:19 BUN 16.1 mg/dL (7-18) 07/02/19 07:19 Creatinine 0.9 mg/dL (0.55-1.3) 07/02/19 07:19 Random Glucose 81 mg/dL (74-106) 07/02/19 07:19 Calcium 9.2 mg/dL (8.5-10.1) 07/02/19 07:19 Total Bilirubin 0.9 mg/dL (0.2-1) 07/02/19 07:19 AST 37 U/L (15-37) 07/02/19 07:19 ALT 70 U/L (13-61) H 07/02/19 07:19 Alkaline Phosphatase 79 U/L (45-117) 07/02/19 07:19 Total Protein 6.9 g/dl (6.4-8.2) 07/02/19 07:19 Albumin 3.9 g/dl (3.4-5.0) 07/02/19 07:19 CARDIAC ENZYMES Creatine Kinase 172 U/L (26-308) 06/30/19 09:12 Troponin I < 0.02 ng/ml (0.00-0.05) 06/30/19 17:15 Current Medications Generic Name Dose Route Start Last Admin Trade Name Freq PRN Reason Stop Dose Admin Acetaminophen 650 mg 07/01/19 06:07 Tylenol - PO Q6H PRN Fever Aspirin 81 mg 06/30/19 15:15 07/02/19 09:25 Asa - PO 81 mg DAILY NIELS Administration Atorvastatin Calcium 20 mg 07/01/19 22:00 07/01/19 21:05 Lipitor - PO 20 mg HS NIELS Administration Finasteride 5 mg 07/01/19 10:00 07/02/19 09:25 Proscar - PO 5 mg DAILY NIELS Administration Heparin Sodium (Porcine) 5,000 unit 06/30/19 22:00 07/02/19 05:10 Heparin - SQ 5,000 unit TID NIELS Administration Losartan Potassium 100 mg 07/01/19 06:15 07/02/19 09:25 Cozaar - PO 100 mg DAILY NIELS Administration Non-Formulary Medication 2.5 ml 07/01/19 20:30 Rhopressa OU DAILY [facility] Home Medications Medication Instructions Recorded Losartan Potassium [Cozaar] 100 mg PO DAILY 01/25/12 Multivitamin [Multiple Vitamins] 1 each PO DAILY 08/10/18 Finasteride [Proscar -] 5 mg PO DAILY 06/26/19 Netarsudil Mesylate [Rhopressa] 2.5 ml OP DAILY 06/28/19 Aspirin [ASA -] 81 mg PO DAILY tab.chew 07/01/19 Atorvastatin Ca [Lipitor] 20 mg PO HS #30 tablet 07/01/19 ASSESSMENT AND PLAN: This is an 84 year old man with a history of HTN, BPH, leukopenia, recent admission for chest pain who presented to the ED with chest pain and syncope on this admission. #Syncope most likely vasovagal, micturition syncope, no orthostatic changes, Echo (06/28) showed normal LV, no wall motion abnormalities, LVEF 60-65%, grade II diastolic dysfunction, normal RV systolic function, mild to moderate MR, mild to moderate TR, mild MN Carotid dopplers show intimal thickening and small to moderate plaques at right common carotid bifurcation with no hemodynamically significant stenosis; moderate plaques at origin or right external carotid; intimal thickening and small plaques at left common carotid bifurcation with no hemodynamically significant stenosis; added Lipitor 20mg po hs and aspirin 81mg to continue # Chest pain ,no further pain, troponin is negative , Aspirin /lipitor continue , cardio consult appreciated, going for stress test in am. # HTN Uncontrolled continue Cozaar and added norvasc 5mg # BPH Continue Proscar DVT Px: heparin. stress test today, if negative discharge patient honme.
--- NOTE | 2019-07-02 15:51 | PN ---
Physical Exam: SUBJECTIVE: Patient seen and examined. was up and walking around his room. he endorsed improvement of his symptoms OBJECTIVE: Vital Signs Period Temp Pulse Resp BP Sys/Werner Pulse Ox Last 24 Hr 98.2 F-98.4 F 58-85 18-20 134-166/74-93 100-100 GENERAL: The patient is awake, alert, and fully oriented, in no acute distress. HEAD: Normal with no signs of trauma. NECK: Trachea midline, full range of motion, supple. LUNGS: Breath sounds equal, clear to auscultation bilaterally, no wheezes, no crackles, no accessory muscle use. HEART: Regular rate and rhythm, S1, S2 without murmur, rub or gallop. ABDOMEN: Soft, nontender, nondistended, normoactive bowel sounds, no guarding, no rebound, no hepatosplenomegaly, no masses. EXTREMITIES: 2+ pulses, warm, well-perfused, no edema. NEUROLOGICAL: Normal speech, gait intact Laboratory Results - last 24 hr 07/02/19 07/02/19 07:19 07:19 WBC 2.1 L RBC 4.85 Hgb 14.3 Hct 42.3 MCV 87.2 MCH 29.4 MCHC 33.7 RDW 15.9 Plt Count 174 MPV 8.7 Sodium 142 Potassium 4.2 Chloride 105 Carbon Dioxide 33 H Anion Gap 4 L BUN 16.1 Creatinine 0.9 Est GFR (CKD-EPI)AfAm 89.32 Est GFR (CKD-EPI)NonAf 77.06 Random Glucose 81 Calcium 9.2 Magnesium 2.6 H Total Bilirubin 0.9 AST 37 ALT 70 H Alkaline Phosphatase 79 Total Protein 6.9 Albumin 3.9 Active Medications Generic Name Dose Route Start Last Admin Trade Name Freq PRN Reason Stop Dose Admin Acetaminophen 650 mg 07/01/19 06:07 Tylenol - PO Q6H PRN Fever Aspirin 81 mg 06/30/19 15:15 07/02/19 09:25 Asa - PO 81 mg DAILY NIELS Administration Atorvastatin Calcium 20 mg 07/01/19 22:00 07/01/19 21:05 Lipitor - PO 20 mg HS NIELS Administration Finasteride 5 mg 07/01/19 10:00 07/02/19 09:25 Proscar - PO 5 mg DAILY NIELS Administration Heparin Sodium (Porcine) 5,000 unit 06/30/19 22:00 07/02/19 13:56 Heparin - SQ 5,000 unit TID NIELS Administration Losartan Potassium 100 mg 07/01/19 06:15 07/02/19 09:25 Cozaar - PO 100 mg DAILY NIELS Administration Non-Formulary Medication 2.5 ml 07/01/19 20:30 Rhopressa OU DAILY NIELS ASSESSMENT/PLAN: 84 year old man with a history of HTN, BPH, leukopenia, recent admission for chest pain who presented to the ED with chest pain and syncope. Chest pain Aspirin 81 mg trend troponins neg X2 (<0.02) Head CT 06/30/19 showed Moderate atrophy and mild periventricular chronic microvascular ischemic disease changes. No gross evidence of a focal intracranial lesion or hemorrhage is seen. Repeat Head CT 12/05 recurrent Headache showed moderate atrophy and no gross evidence of focal lesion or hemorrhage. Chest Xray 06/30/19 showed No acute chest pathology. No change of an adverse nature since prior study lipid panel from 06/26 admission with lipitor 20mg added f/u ecg stress test 07/01/19 showed no diagnostic ischemic ST changes and no arrythmias during infusion. nuclear scan result showed MODERATE TO SEVERE INFERIOR, INFEROSEPTAL AND INFEROAPICAL ISCHEMIA. LVEF of 60% with normal wall motion. NO ISCHEMIC DILATION NOTED. Will follow cardiology recommendations Syncope orthostatics vitals unremarkable carotid doppler 06/30/19 showed Intimal thickening and qlfwc-vo-kramyygd size plaques at the right common carotid bifurcation without evidence of hemodynamically significant stenosis. Moderate-size plaques are present at the origin of the right external carotid artery. There is also intimal thickening and small plaques at the left common carotid bifurcation without evidence of hemodynamically significant stenosis DVT PPX heparin subQ Problem List - Problems (1) Syncope Code(s): R55 - SYNCOPE AND COLLAPSE Qualifiers: Syncope type: unspecified Qualified Code(s): R55 - Syncope and collapse (2) Chest pain Code(s): R07.9 - CHEST PAIN, UNSPECIFIED Qualifiers: Chest pain type: unspecified Qualified Code(s): R07.9 - Chest pain, unspecified Visit type - Emergency Visit Emergency Visit: Yes ED Registration Date: 06/30/19 Care time: The patient presented to the Emergency Department on the above date and was hospitalized for further evaluation of their emergent condition. - New Patient This patient is new to me today: No - Critical Care Critical Care patient: No - Discharge Referral Referred to [facility] Med P.C.: No ATTENDING PHYSICIAN STATEMENT I saw and evaluated the patient. I reviewed the resident's note and discussed the case with the resident. I agree with the resident's findings and plan as documented. SUBJECTIVE: OBJECTIVE: ASSESSMENT AND PLAN:
[2019-07-02 16:04] VITALS: BP 136/72; PULSE 92
--- NOTE | 2019-07-02 16:24 | PN ---
Progress Note, Physician Chief Complaint: Telem NSR No chest pain History of Present Illness: 84 M with HTN and BPH with chronic angina has noted recent increase in frequency of symptoms especially with emotional distress and was admitted last week. Echocardiogram and ECG were normal and CELESTE negative. He is readmitted after developing dizziness and chest discomfort followed by syncope. ECG is unchanged and enzymes are negative. He is not orthostatic and exam is unremarkable Stress test with mod to severe inf inf-septal and infapical ischemia nl EF - Current Medication List Current Medications: Active Medications Acetaminophen (Tylenol -) 650 mg PO Q6H PRN PRN Reason: Fever Aspirin (Asa -) 81 mg PO DAILY [facility] Last Admin: 07/02/19 09:25 Dose: 81 mg Atorvastatin Calcium (Lipitor -) 20 mg PO HS [facility] Last Admin: 07/01/19 21:05 Dose: 20 mg Finasteride (Proscar -) 5 mg PO DAILY [facility] Last Admin: 07/02/19 09:25 Dose: 5 mg Heparin Sodium (Porcine) (Heparin -) 5,000 unit SQ TID [facility] Last Admin: 07/02/19 13:56 Dose: 5,000 unit Losartan Potassium (Cozaar -) 100 mg PO DAILY [facility] Last Admin: 07/02/19 09:25 Dose: 100 mg Non-Formulary Medication (Rhopressa) 2.5 ml OU DAILY [facility] - Objective Vital Signs: Vital Signs Temperature 98.4 F 07/02/19 05:15 Pulse Rate 92 H 07/02/19 16:02 Respiratory Rate 20 07/02/19 16:02 Blood Pressure 136/72 07/02/19 16:02 O2 Sat by Pulse Oximetry (%) 100 07/02/19 07:32 Constitutional: Yes: Well Nourished, No Distress Eyes: Yes: Conjunctiva Clear, EOM Intact HENT: Yes: Atraumatic, Normocephalic Neck: Yes: Supple, Trachea Midline Cardiovascular: Yes: Regular Rate and Rhythm, S1, S2. No: JVD Respiratory: Yes: Regular, CTA Bilaterally Edema: No Labs: CBC, BMP 07/02/19 07:19 07/02/19 07:19 INR, PTT INR 1.04 (0.83-1.09) 06/30/19 09:12 Problem List - Problems (1) Syncope Code(s): R55 - SYNCOPE AND COLLAPSE Qualifiers: Syncope type: unspecified Qualified Code(s): R55 - Syncope and collapse (2) Chest pain Code(s): R07.9 - CHEST PAIN, UNSPECIFIED Qualifiers: Chest pain type: unspecified Qualified Code(s): R07.9 - Chest pain, unspecified Assessment/Plan 84 M with HTN and BPH with chronic angina has noted recent increase in frequency of symptoms especially with emotional distress and was admitted last week. Echocardiogram and ECG were normal and CELESTE negative. He is readmitted after developing dizziness and chest discomfort followed by syncope. ECG is unchanged and enzymes are negative. He is not orthostatic and exam is unremarkable He has singificant inferior wall ischemia. Given the history of syncope, will advise cardiac catheterization to further eval ischemia extentnt and PCI if needed. DW PT and DTR in detail. Arranged for transfer to [facility].
== END 2019-07-02 18:16 | disposition home health service (06) ==
LOC: JER 07:52 → JERBED 13:45 → J4W 20:12
PROVIDERS: ADMIT Internal Medicine; ATTEND Internal Medicine
PROC: 3E033GC Introduction of Other Therapeutic Substance into Peripheral Vein, Percutaneous Approach (ICD-10-PCS; principal; 2019-06-30)
PROC: 3E013GC Introduction of Other Therapeutic Substance into Subcutaneous Tissue, Percutaneous Approach (ICD-10-PCS; 2019-06-30)
DX: R55 Syncope and collapse (principal); S09.90XA Unspecified injury of head, initial encounter; R07.89 Other chest pain; I10 Essential (primary) hypertension; N40.0 Benign prostatic hyperplasia without lower urinary tract symptoms
CPT/HCPCS: 36415; 70450-TC; 71045-TC-FY; 78452-TC; 80053; 82550; 82553; 83036; 83735; 84100; 84439; 84443; 84484; 85025; 85027; 85610; 93005; 93010; 93017; 93880-TC; 96372; 96374; 99285-25; A9502; G0378; J1245; J1644

== ENCOUNTER 2019-08-01 13:57 | Observation (INO) | payer OTHER ==
--- NOTE | 2019-08-01 14:02 | PDOC ---
Attending Attestation - Resident Resident Name: Sandra Dickey - ED Attending Attestation I have performed the following: I have examined & evaluated the patient, The case was reviewed & discussed with the resident, I agree w/resident's findings & plan, Exceptions are as noted - HPI HPI: 08/01/19 16:21 84yo male with recent cardiac cath and stent placement at [facility] 2 weeks ago after having an abnl stress test here. Pt states today while at rest L sided cp. No radiation. +sob. No nausea. No diaphoresis. Pt given asa by medics and ekg in the field does not show acute stemi. Pt given nitro sl by medics which did relieve some of the pain. Pt states also burning sensation in the chest. Pt denies cough, f/c. No abd pain. No vomiting/diarrhea. No other complaints. No le swelling. - Physicial Exam PE: 08/01/19 16:23 Gen: aaox3, nad heart: +s1s2 reg lungs: cta b/l abd: soft, nt/nd +bs ext: no c/c/e - Medical Decision Making 08/01/19 16:25 a/p: 84yo male with hx of recent stenting at [facility] with cp today -given nitro and asa in the field -pt states complaint with asa and plavix at home -states Dr. Kp Garnett is his cards- seen -pt also c/o burning in chest -will send labs, trop, monitoring engineer -will discuss with cards -will give another sl nitro 08/01/19 16:26 pt with low wbc and low neutrophil count will need outpt heme/onc eval for low bc trop neg resident discussed the case with Dr. Garnett 2nd SL nitro given and pt feeling better 08/01/19 16:42 cxr clear 08/01/19 17:15 resident discussed the case with adri who accepts pt to service Heart Score/ECG Review - ECG Intrepretation Comment:: 08/01/19 16:24 sinus at 68, freq pvc, nl axis, no acute st/t wave findings, t wave inversions avL
--- NOTE | 2019-08-01 14:06 | PDOC ---
History of Present Illness - General Stated Complaint: CHEST PAIN Time Seen by Provider: 08/01/19 14:03 History Source: Patient Exam Limitations: No Limitations - History of Present Illness Initial Comments: Pt is an 84 yo M, with PMH of HTN, HLD, CAD (stents placed x2 weeks ago at [facility]), leukopenia (chronic), and GERD, who is presenting for chest pain since 10 am this morning. Pt states the pain is pressure-like, on the L-side of his chest and which radiates down his L arm. The pain started during rest and has not been associated with nausea/vomiting or diaphoresis. Pt states this pain is similar to his last visit when he got the stents. Pt was seen at [facility] 2 weeks ago and was sent to [facility] for stenting after positive stress test ( severe RCA stenosis) and was started on ASA and Plavix. Pt was provided 325 mg PO ASA and 0.4 mg SL NG on the ambulance. Pt denies any recent fevers/chills, headache, vision changes, syncope, palpitations, SOB, nausea/vomiting, abdominal pain, urinary symptoms, diarrhea/constipation, or leg swelling. Allergies: NKDA PCP: Dr. Thrasher Cards: Dr. Kp Garnett/Dr. Barnhart Social: Pt denies any cigarette, alcohol, or drug use. Pt denies any recent travel or sick contacts. Surgical: remote hernia repair Family: no relevant history. 08/01/19 16:30 Past History - Travel Traveled outside of the country in the last 30 days: No Close contact w/someone who was outside of country & ill: No - Past Medical History Allergies/Adverse Reactions: Allergies Allergy/AdvReac Type Severity Reaction Status Date / Time lactase [From Dairy Aid] Allergy Verified 08/01/19 14:17 Penicillins Allergy Verified 08/01/19 14:17 Home Medications: Ambulatory Orders Losartan Potassium [Cozaar] 100 mg PO DAILY 01/25/12 Multivitamin [Multiple Vitamins] 1 each PO DAILY 08/10/18 Finasteride [Proscar -] 5 mg PO DAILY 06/26/19 Netarsudil Mesylate [Rhopressa] 2.5 ml OP DAILY 06/28/19 Aspirin [ASA -] 81 mg PO DAILY tab.chew 07/01/19 Atorvastatin Ca [Lipitor] 20 mg PO HS #30 tablet 07/01/19 Amlodipine Besylate [Norvasc -] 5 mg PO DAILY #30 tablet 07/02/19 Anemia: No Asthma: No Cancer: No Cardiac Disorders: No CVA: No COPD: No CHF: No Dementia: No Diabetes: No GI Disorders: No Disorders: No HTN: Yes Hypercholesterolemia: No Liver Disease: No Seizures: No Thyroid Disease: No - Surgical History Abdominal Surgery: Yes (right inguinal hernia repair) Cardiac Surgery: No Lung Surgery: No Neurologic Surgery: No - Psycho Social/Smoking Cessation Hx Smoking Status: No Smoking History: Never smoked Have you smoked in the past 12 months: No Number of Cigarettes Smoked Daily: 0 Hx Alcohol Use: No Drug/Substance Use Hx: No Substance Use Type: None Hx Substance Use Treatment: No Cardiac Specific PMH - Complaint Specific PMHX Angina: Yes Cardiac Arrhythmia: No Cardiac Stent: Yes GERD: Yes Myocardial Infarction: No Pacemaker: No Pulmonary Embolus: No Valvular Heart Disease: No Peripheral Vascular Disease: No Review of Systems - Review of Systems Able to Perform ROS?: Yes Is the patient limited Portuguese proficient: No Constitutional: Yes: Weight Stable. No: Chills, Diaphoresis, Fever, Loss of Appetite, Malaise, Weakness HEENTM: No: Recent change in vision, Nose Congestion, Throat Pain, Throat Swelling, Difficulty Swallowing Respiratory: No: Cough, Orthopnea, Shortness of Breath Cardiac (ROS): Yes: Chest Pain. No: Edema, Irregular Heart Rate, Lightheadedness, Palpitations, Syncope, Chest Tightness ABD/GI: No: Constipated, Diarrhea, Nausea, Poor Appetite, Poor Fluid Intake, Vomiting : No: Burning, Dysuria, Frequency, Flank Pain, Pain, Urgency Musculoskeletal: No: Back Pain, Joint Pain, Muscle Pain, Muscle Weakness Integumentary: No: Rash Neurological: No: Headache, Numbness, Paresthesia, Weakness, Unsteady Gait, Ataxia, Dizziness Psychiatric: No: Sleep Pattern Change, Change in Appetite Endocrine: No: Increased Urine, Change in Weight Hematologic/Lymphatic: Yes: See HPI (cardiac stents, see HPI). No: Anemia, Blood Clots, Easy Bleeding, Easy Bruising All Other Systems: Reviewed and Negative *Physical Exam - Vital Signs Last Vital Signs Temp Pulse Resp BP Pulse Ox 98.1 F 68 18 123/62 99 08/01/19 13:58 08/01/19 15:55 08/01/19 15:55 08/01/19 15:55 08/01/19 15:55 - Physical Exam Comments: Vitals stable, pt afebrile. Pt in NAD, lying comfortably on the bed. Thin body habitus. Pt alert and oriented x3. instrumentation tech generally intact, muscular strength and sensation intact. No midline spinal tenderness, step-offs, or crepitus. Head normocephalic, atraumatic. Eyes PERRLA, EOMI. Oropharynx without erythema or exudates, no LAD b/l. No nasal congestion. Hearing intact. Clear heart sounds, S1/S2, no JVD, b/l pedal edema, or heart murmur. No reproducible chest wall TTP. Clear lung sounds, no respiratory distress, wheezes, crackles, or accessory muscle use. No abdominal or CVA tenderness to palpation, no rebound, no guarding. Abdomen soft, non-distended, and with normoactive bowel sounds. Skin without jaundice or rash. 08/01/19 16:37 ED Treatment Course - LABORATORY CBC & Chemistry Diagram: 08/01/19 14:36 08/01/19 14:36 - ADDITIONAL ORDERS Additional order review: Laboratory Results 08/01/19 08/01/19 08/01/19 14:36 14:36 14:36 PT with INR 14.20 H INR 1.20 H PTT (Actin FS) 37.5 H Sodium 138 Potassium 3.8 Chloride 103 Carbon Dioxide 30 Anion Gap 5 L BUN 15.8 Creatinine 1.1 Est GFR (CKD-EPI)AfAm 70.08 Est GFR (CKD-EPI)NonAf 60.46 Random Glucose 114 H Calcium 8.2 L Total Bilirubin 0.5 AST 24 ALT 41 Alkaline Phosphatase 91 Creatine Kinase 102 Troponin I < 0.02 Total Protein 6.1 L Albumin 3.5 Blood Type O POSITIVE Antibody Screen Negative 08/01/19 14:36 RBC 4.06 MCV 86.9 MCHC 33.3 RDW 15.8 MPV 8.0 Neutrophils % 51.5 D Lymphocytes % 28.7 D Monocytes % 17.6 H Eosinophils % 1.7 Basophils % 0.5 - Medications Given in the ED: ED Medications Discontinued Medications Generic Name Dose Route Start Last Admin Trade Name Freq PRN Reason Stop Dose Admin Acetaminophen 1,000 mg 08/01/19 14:22 08/01/19 14:39 Ofirmev Injection - IVPB 08/01/19 14:23 1,000 mg ONCE ONE Administration Al Hydroxide/Mg Hydroxide 30 ml 08/01/19 15:28 08/01/19 15:55 Mylanta Oral Suspension - PO 08/01/19 15:29 30 ml ONCE ONE Administration Famotidine/Sodium Chloride 20 mg in 50 mls @ 100 mls/hr 08/01/19 15:21 15:55 Pepcid 20 Mg Premixed Ivpb - IVPB 08/01/19 15:50 100 mls/hr ONCE ONE Administration Morphine Sulfate 2 mg 08/01/19 15:21 08/01/19 15:54 Morphine Injection - IVPUSH 08/01/19 15:22 2 mg ONCE ONE Administration Nitroglycerin 0.4 mg 08/01/19 14:26 08/01/19 14:39 Nitrostat - SL 08/01/19 14:27 0.4 mg ONCE ONE Administration Ondansetron HCl 4 mg 08/01/19 15:22 08/01/19 15:55 Zofran Injection IVPUSH 08/01/19 15:23 4 mg ONCE ONE Administration Medical Decision Making - Medical Decision Making Pt was seen at bedside, also will be seen by attending Dr. Lim. Pt presenting with chest pain, relieved by NG, occurring at rest. Pt on ASA and Plavix, but recently had stents placed x2 weeks ago at [facility]. STAT EKG done at bedside with no concern for active STEMI. Will evaluate for ACS vs N- stemi vs pericarditis/myocarditis vs infection and will speak with cardiology regarding ACS r/o vs transfer back to [facility] for additional evaluation. ECG: NSR, with frequent PVCs. TWIs in aVL (prior on last EKG), with no significant ST segment changes. No significant changes from prior ECG. Provided additional 0.4 mg SL NG and IV ofirmev for improvement of continued chest discomfort. Will continue to reassess pt and monitor for symptomatic improvement. 08/01/19 16:38 CBC: leukopenia (baseline for pt) CMP WNL Trop <.02 with no significant EKG changes. 08/01/19 16:41 4 mg IV zofran, 20 mg IV pepcid, 30 mg PO maalox, and 2 mg IV morphine provided for nausea and pain. Chest x-ray with no mediastinal widening, cardiomegaly, or infiltrates. Spoke with Dr. Garnett, who agrees with plan for inpatient work-up due to persistent chest pain and recent cardiac stenting. Pt may require additional stress test to eval for re-occlusion. BP 114/80 after morphine. Will provide NG drip if pain still not improved and if systolic BP can remain stable enough for additional vasodilator. Paged hospitalist team for admission. 08/01/19 16:43 Pt admitted to hospitalist team (Dr. Coelho). Pt stable and resting comfortably after interventions. 08/01/19 16:53 Discharge - Discharge Information Problems reviewed: Yes Clinical Impression/Diagnosis: H/O heart artery stent Chest pain Qualifiers: Chest pain type: unspecified Qualified Code(s): R07.9 - Chest pain, unspecified Condition: Stable - Admission Yes - Follow up/Referral Referrals: Juan C Thrasher MD [Primary Care Provider] - - Patient Discharge Instructions - Post Discharge Activity
[2019-08-01] MEDS ORDERED: ACETAMINOPHEN 1000 MG/100 ML VIAL (NON FORMULARY) IVPB ONE (14:22)
[2019-08-01] MEDS ORDERED: NITROGLYCERIN SUBLINGUAL 1/150 0.4 MG TAB SL ONE (14:26)
[2019-08-01] MEDS ORDERED: ACETAMINOPHEN INJECTION 100 ML IVPB ONE (14:27)
[2019-08-01 14:41] LABS: BASO % 0.5 % (0-2.0); EOS % 1.7 % (0-4.5); HEMATOCRIT 35.3 % (35.4-49); HEMOGLOBIN 11.7 GM/dL (11.7-16.9); LYMPH % 28.7 % (8-40); MCH 28.9 pg (25.7-33.7); MCHC 33.3 g/dl (32.0-35.9); MEAN CELL VOLUME 86.9 fl (80-96); MONO % 17.6 % (3.8-10.2); NEUT % 51.5 % (42.8-82.8); PLATELET COUNT 158 K/MM3 (134-434); RBC 4.06 M/mm3 (4.00-5.60); RDW 15.8 % (11.9-15.9); WHITE BLOOD COUNT 2.2 K/mm3 (4.0-10.0)
[2019-08-01 14:53] LABS: INR 1.2 (0.83-1.09); PROTHROMBIN TIME (PATIENT) 14.2 SEC (9.7-13.0)
[2019-08-01 14:55] LABS: ACTIVATED PTT 37.5 SECONDS (25.2-36.5)
[2019-08-01 15:14] LABS: ALBUMIN 3.5 g/dl (3.4-5.0); ALK PHOS 91 U/L (45-117); ANION GAP 5 MMOL/L (8-16); BILIRUBIN,TOTAL 0.5 mg/dL (0.2-1); BLOOD UREA NITROGEN 15.8 mg/dL (7-18); CALCIUM 8.2 mg/dL (8.5-10.1); CHLORIDE 103 mmol/L (98-107); CO2 30 mmol/L (21-32); CREATININE 1.1 mg/dL (0.55-1.3); GLUCOSE,RANDOM 114 mg/dL (74-106); POTASSIUM 3.8 mmol/L (3.5-5.1); SGOT/AST 24 U/L (15-37); SGPT/ALT 41 U/L (13-61); SODIUM 138 mmol/L (136-145); TOT PROT 6.1 g/dl (6.4-8.2)
[2019-08-01] MEDS ORDERED: morphine CARPU-JECT 4 MG/1 ML DISP.SYRIN IVPUSH ONE (15:21)
[2019-08-01] MEDS ORDERED: FAMOTIDINE 20 MG/50 ML IVPB 20 MG/50 ML MG IVPB ONE ×2 (15:21→15:46)
[2019-08-01] MEDS ORDERED: ONDANSETRON 4 MG/2 ML VIAL IVPUSH ONE (15:22)
[2019-08-01] MEDS ORDERED: MAG HYDROX/AL HYDROX/SIMETH 30 ML UNIT-DOSE CUP PO ONE (15:28)
[2019-08-01] MEDS ORDERED: MAG HYDROX/AL HYDROX/SIMETH 30 ML UNIT-DOSE CUP ONE (15:45)
[2019-08-01] MEDS ORDERED: MORPHINE SULFATE 2 MG/ML VIAL ONE (15:45)
[2019-08-01] MEDS ORDERED: ONDANSETRON 4 MG/2 ML VIAL ONE (15:45)
--- NOTE | 2019-08-01 16:44 | EKG ---
Test Reason : Blood Pressure : / mmHG Vent. Rate : 068 BPM Atrial Rate : 068 BPM P-R Int : 172 ms QRS Dur : 088 ms QT Int : 398 ms P-R-T Axes : 082 064 068 degrees QTc Int : 423 ms SINUS RHYTHM WITH FREQUENT PREMATURE VENTRICULAR COMPLEXES OTHERWISE NORMAL ECG WHEN COMPARED WITH ECG OF 30-JUN-2019 08:30, PREMATURE VENTRICULAR COMPLEXES ARE NOW PRESENT Confirmed by ENMANUEL AZAR, ISAÍAS ([id number]) on 08/01/2019 4:43:42 PM Referred By: JOSE Confirmed By:ISAÍAS SINGER MD
[2019-08-01] MEDS ORDERED: ACETAMINOPHEN 325 MG TABLET (FP) PO PRN (17:31)
--- NOTE | 2019-08-01 17:37 | PN ---
Teaching Attending Note Name of Resident: Amparo Wade ATTENDING PHYSICIAN STATEMENT I saw and evaluated the patient. I reviewed the resident's note and discussed the case with the resident. I agree with the resident's findings and plan as documented. SUBJECTIVE: Patient is a 84yo male with PMHx of recent cardiac cath and stent placement at [facility] 2 weeks ago( on plavix and aspirin) presented to ED. c/o having exertional chest pain while preparing his breakfast, with no radiation to the neck or jaw, the pain lasted for 4 hours. Chest pain resolved after given SL nitroglcerin. Pt was given asa by medics and ekg in the field does not show any st. depression or elevation GA. Currently the patient is chest pain free. Patient lives by himself. OBJECTIVE: Vital Signs Temperature 98.1 F 08/01/19 13:58 Pulse Rate 68 08/01/19 15:55 Respiratory Rate 18 08/01/19 15:55 Blood Pressure 123/62 08/01/19 15:55 O2 Sat by Pulse Oximetry (%) 99 08/01/19 15:55 GENERAL: The patient is awake, alert, and fully oriented, in no acute distress. HEAD: Normal with no signs of trauma. EYES: PERRL, extraocular movements intact, sclera anicteric, conjunctiva clear. ENT: Ears normal, oropharynx clear without exudates, moist mucous membranes. NECK: Trachea midline, full range of motion, supple. LUNGS: Breath sounds equal, clear to auscultation bilaterally, no wheezes, no crackles, no accessory muscle use. HEART: Regular rate and rhythm, S1, S2 without murmur, rub or gallop. ABDOMEN: Soft, NT,ND, normoactive bowel sounds, no guarding, no rebound, no hepatosplenomegaly, no masses. EXTREMITIES: 2+ pulses, warm, well-perfused, no edema. NEUROLOGICAL: Cranial nerves II through XII grossly intact. Normal speech, gait not observed. PSYCH: Normal mood, normal affect. SKIN: Warm, dry, normal turgor, no rashes or lesions noted CBCD WBC 2.2 K/mm3 (4.0-10.0) L 08/01/19 14:36 RBC 4.06 M/mm3 (4.00-5.60) 08/01/19 14:36 Hgb 11.7 GM/dL (11.7-16.9) 08/01/19 14:36 Hct 35.3 % (35.4-49) L D 08/01/19 14:36 MCV 86.9 fl (80-96) 08/01/19 14:36 MCHC 33.3 g/dl (32.0-35.9) 08/01/19 14:36 RDW 15.8 % (11.9-15.9) 08/01/19 14:36 Plt Count 158 K/MM3 (134-434) 08/01/19 14:36 MPV 8.0 fl (7.5-11.1) 08/01/19 14:36 CMP Sodium 138 mmol/L (136-145) 08/01/19 14:36 Potassium 3.8 mmol/L (3.5-5.1) 08/01/19 14:36 Chloride 103 mmol/L (98-107) 08/01/19 14:36 Carbon Dioxide 30 mmol/L (21-32) 08/01/19 14:36 Anion Gap 5 MMOL/L (8-16) L 08/01/19 14:36 BUN 15.8 mg/dL (7-18) 08/01/19 14:36 Creatinine 1.1 mg/dL (0.55-1.3) 08/01/19 14:36 Random Glucose 114 mg/dL (74-106) H 08/01/19 14:36 Calcium 8.2 mg/dL (8.5-10.1) L 08/01/19 14:36 Total Bilirubin 0.5 mg/dL (0.2-1) 08/01/19 14:36 AST 24 U/L (15-37) 08/01/19 14:36 ALT 41 U/L (13-61) 08/01/19 14:36 Alkaline Phosphatase 91 U/L (45-117) 08/01/19 14:36 Total Protein 6.1 g/dl (6.4-8.2) L 08/01/19 14:36 Albumin 3.5 g/dl (3.4-5.0) 08/01/19 14:36 CARDIAC ENZYMES Creatine Kinase 102 U/L (26-308) 08/01/19 14:36 Troponin I < 0.02 ng/ml (0.00-0.05) 08/01/19 14:36 Current Medications Generic Name Dose Route Start Last Admin Trade Name Radha PRN Reason Stop Dose Admin Acetaminophen 650 mg 08/01/19 17:31 Tylenol - PO Q6H PRN PAIN Home Medications Medication Instructions Recorded Multivitamin [Multiple Vitamins] 1 each PO DAILY 08/10/18 Finasteride [Proscar -] 5 mg PO DAILY 06/26/19 Netarsudil Mesylate [Rhopressa] 2.5 ml OP DAILY 06/28/19 Aspirin [ASA -] 81 mg PO DAILY tab.chew 07/01/19 Amlodipine Besylate [Norvasc -] 5 mg PO DAILY #30 tablet 07/02/19 Clopidogrel Bisulfate [Plavix] 75 mg PO DAILY 08/01/19 Losartan Potassium 50 mg PO DAILY 08/01/19 Echo (06/28) showed normal LV, no wall motion abnormalities, LVEF 60-65%, grade II diastolic dysfunction, normal RV systolic function, mild to moderate MR, mild to moderate TR, mild NV Carotid dopplers show intimal thickening and small to moderate plaques at right common carotid bifurcation with no hemodynamically significant stenosis; moderate plaques at origin or right external carotid; intimal thickening and small plaques at left common carotid bifurcation with no hemodynamically significant stenosis. ASSESSMENT AND PLAN: Patient is an 84 year old man with a history of HTN, BPH, leukopenia,recent stent 2 weeks ago at [facility], presneted with having acute chest for 4 hrs. and the pain was relieved by SL nitro. # Acute chest pain r/o acs ,CE q6 x2 more sets, continue plavix/aspirin lipitor continue , cardio consult # HTN controlled continue Cozaar and norvasc 5mg # BPH Continue Proscar DVT Px: heparin.
--- NOTE | 2019-08-01 17:50 | HP ---
CHIEF COMPLAINT: chest pain PCP: Dr Thrasher HISTORY OF PRESENT ILLNESS: 84 y/o M with PMH of CAD s/p stent placement 2 weeks ago at [facility], HTN, BPH, Chronic leukopenia, glaucoma who presented to the ED because of chest pain. Pt was making breakfast when the pain started. The pain was pressure-like, sharp, radiating to the Left arm. Pain was constant;lasting all morning for about 4 hours until relief from the ED treatment. Nitro made it better and exertion made it worse. pain was rated 10/10 wit associated dizziness and shortness of breath. However pt denies any associated nausea, vomiting, or diaphoresis. Pt endorsed compliance to stent dual antiplatelet regimen: aspirin and plavix daily. Pt denies any recent use of cigarettes or illicit drugs. Only significant changes per patient was the consumption of cauliflower 2 days ago which was on the list of items to not eat post stent placement. ER course was notable for: (1) Trop negative x1, CBC, BMP (2)EKG w/o significant changes compared to previous. Dr Garnett consulted. (3) SL nitro given (2nd) {patient received nitro and aspirin on the field}, morphine 2mg,acetaminophen, 1g for pain relief Recent Travel: NONE PAST MEDICAL HISTORY: as noted above PAST SURGICAL HISTORY: Left inguinal repair, colonoscopy with polyp removal 5 yrs ago Social History: Smoking: denies Alcohol: denies Drugs: denies Allergies lactase [From Dairy Aid] Allergy (Verified 08/01/19 14:17) Penicillins Allergy (Verified 08/01/19 14:17) HOME MEDICATIONS: Home Medications Medication Instructions Recorded Multivitamin [Multiple Vitamins] 1 each PO DAILY 08/10/18 Finasteride [Proscar -] 5 mg PO DAILY 06/26/19 Netarsudil Mesylate [Rhopressa] 2.5 ml OP DAILY 06/28/19 Aspirin [ASA -] 81 mg PO DAILY tab.chew 07/01/19 Amlodipine Besylate [Norvasc -] 5 mg PO DAILY #30 tablet 07/02/19 Atorvastatin Ca [Lipitor] 80 mg PO HS 08/01/19 Clopidogrel Bisulfate [Plavix] 75 mg PO DAILY 08/01/19 Isosorbide Mononitrate [Imdur -] 30 mg PO DAILY 08/01/19 Losartan Potassium 50 mg PO DAILY 08/01/19 Metoprolol Succinate 12.5 mg PO DAILY 08/01/19 REVIEW OF SYSTEMS CONSTITUTIONAL: generalized weakness Absent: fever, chills, diaphoresis, malaise, loss of appetite, weight change HEENT: Absent: rhinorrhea, nasal congestion, throat pain, throat swelling, difficulty swallowing, mouth swelling, ear pain, eye pain, visual changes CARDIOVASCULAR: chest pain Absent: syncope, palpitations, irregular heart rate, lightheadedness, peripheral edema RESPIRATORY:shortness of breath Absent: cough, dyspnea with exertion, orthopnea, wheezing, stridor, hemoptysis GASTROINTESTINAL: Absent: abdominal pain, abdominal distension, nausea, vomiting, diarrhea, constipation, melena, hematochezia GENITOURINARY: Absent: dysuria, frequency, urgency, hesitancy, hematuria, flank pain, genital pain MUSCULOSKELETAL: Absent: myalgia, arthralgia, joint swelling, back pain, neck pain SKIN: Absent: rash, itching, pallor HEMATOLOGIC/IMMUNOLOGIC: Absent: easy bleeding, easy bruising, lymphadenopathy, frequent infections ENDOCRINE: Absent: unexplained weight gain, unexplained weight loss, heat intolerance, cold intolerance NEUROLOGIC: dizziness Absent: headache, focal weakness or paresthesias, unsteady gait, seizure, mental status changes, bladder or bowel incontinence PSYCHIATRIC: Absent: anxiety, depression, suicidal or homicidal ideation, hallucinations. PHYSICAL EXAMINATION Vital Signs - 24 hr 08/01/19 08/01/19 08/01/19 13:58 14:46 15:55 Temperature 98.1 F Pulse Rate 70 Pulse Rate [ 68 68 Apical] Respiratory 16 17 18 Rate Blood Pressure 131/67 Blood Pressure 116/65 123/62 [Right Arm] O2 Sat by Pulse 94 L 99 99 Oximetry (%) GENERAL: Awake, alert, and fully oriented, in mild distress. HEAD: Normal with no signs of trauma. EYES: Pupils equal, round and reactive to light, extraocular movements intact, sclera anicteric, conjunctiva clear. No lid lag. EARS, NOSE, THROAT: Ears normal, nares patent, oropharynx clear without exudates. Moist mucous membranes. NECK: Normal range of motion, supple without lymphadenopathy, JVD, or masses. LUNGS: Breath sounds equal, clear to auscultation bilaterally. No wheezes, and no crackles. No accessory muscle use. HEART: Regular rate and rhythm, normal S1 and S2 without murmur, rub or gallop. ABDOMEN: Soft, nontender, not distended, normoactive bowel sounds, no guarding, no rebound, no masses. No hepatomegaly or splenomegaly. MUSCULOSKELETAL: Normal range of motion at all joints. No bony deformities or tenderness. No CVA tenderness. UPPER EXTREMITIES: 2+ pulses, warm, well-perfused. No cyanosis. No clubbing. No peripheral edema. LOWER EXTREMITIES: 2+ pulses, warm, well-perfused. No calf tenderness. No peripheral edema. NEUROLOGICAL: Cranial nerves II-XII intact. Normal speech. gait not observed. strength 5/5 in all extremities. sensation intact face arms and legs. PSYCHIATRIC: Cooperative. Good eye contact. Appropriate mood and affect. SKIN: Warm, dry, normal turgor, no rashes or lesions noted, normal capillary refill. Laboratory Results - last 24 hr 08/01/19 08/01/19 08/01/19 14:36 14:36 14:36 WBC 2.2 L RBC 4.06 Hgb 11.7 Hct 35.3 L D MCV 86.9 MCH 28.9 MCHC 33.3 RDW 15.8 Plt Count 158 MPV 8.0 Absolute Neuts (auto) 1.2 L Neutrophils % 51.5 D Lymphocytes % 28.7 D Monocytes % 17.6 H Eosinophils % 1.7 Basophils % 0.5 Nucleated RBC % 0 PT with INR 14.20 H INR 1.20 H PTT (Actin FS) 37.5 H Sodium 138 Potassium 3.8 Chloride 103 Carbon Dioxide 30 Anion Gap 5 L BUN 15.8 Creatinine 1.1 Est GFR (CKD-EPI)AfAm 70.08 Est GFR (CKD-EPI)NonAf 60.46 Random Glucose 114 H Calcium 8.2 L Total Bilirubin 0.5 AST 24 ALT 41 Alkaline Phosphatase 91 Creatine Kinase 102 Troponin I < 0.02 Total Protein 6.1 L Albumin 3.5 Blood Type Antibody Screen 08/01/19 14:36 WBC RBC Hgb Hct MCV MCH MCHC RDW Plt Count MPV Absolute Neuts (auto) Neutrophils % Lymphocytes % Monocytes % Eosinophils % Basophils % Nucleated RBC % PT with INR INR PTT (Actin FS) Sodium Potassium Chloride Carbon Dioxide Anion Gap BUN Creatinine Est GFR (CKD-EPI)AfAm Est GFR (CKD-EPI)NonAf Random Glucose Calcium Total Bilirubin AST ALT Alkaline Phosphatase Creatine Kinase Troponin I Total Protein Albumin Blood Type O POSITIVE Antibody Screen Negative ASSESSMENT/PLAN: 84 y/o M with PMH of CAD s/p stent placement 2 weeks ago at [facility], HTN, BPH, Chronic leukopenia, glaucoma who presented to the ED because of chest pain admitted to r/o ACS Chest pain anginal or reocclusion of coronary vessel s/p coronary stents (2) at [facility] 2 weeks ago stress test 07/01/19 : large mod-severe intensity reversible inferior, inferiorapical, inferioseptal perfusion defect c/w mod to severe ischemia echo 06/28/19: EF 60-65%, normal LV and RV function, no wall motion abnormalities , mild to mod MR, Mild to mod TR,mild KS, mild aortic sclerosis. continue aspirin and plavix,lipitor trend trop <0.02 x1. repeat pending for 6:30 repeat echo for any interval changes tylenol for pain. No NSAID Dr Garnett, cardio consulted. may have to repeat stress test in the AM admitted to tele Obs Chronic angina cont imdur HTN cont home meds metoprolol 12.5 PO daily norvasc 5mg PO daily losartan 50 PO daily BPH cont proscar Glaucoma cont home meds DVT Hep subq Visit type - Emergency Visit Emergency Visit: Yes ED Registration Date: 08/01/19 Care time: The patient presented to the Emergency Department on the above date and was hospitalized for further evaluation of their emergent condition. - New Patient This patient is new to me today: Yes Date on this admission: 08/01/19 - Critical Care Critical Care patient: No ATTENDING PHYSICIAN STATEMENT I saw and evaluated the patient. I reviewed the resident's note and discussed the case with the resident. I agree with the resident's findings and plan as documented. SUBJECTIVE: OBJECTIVE: ASSESSMENT AND PLAN:
[2019-08-01] MEDS ORDERED: ATORVASTATIN CA 80 MG TABLET (FP) PO SCH (22:00)
[2019-08-01] MEDS: HEPARIN NA (PORCINE) 5,000 UNITS/ML 1ML VIAL SQ SCH (22:32)
[2019-08-02 04:45] VITALS: BMI 19.9
[2019-08-02] MEDS ORDERED: PANTOPRAZOLE 40 MG TABLET (FP) PO SCH (08:30)
[2019-08-02 08:50] LABS: BASO % 0.5 % (0-2.0); EOS % 1.4 % (0-4.5); HEMATOCRIT 40.6 % (35.4-49); HEMOGLOBIN 13.9 GM/dL (11.7-16.9); LYMPH % 31.7 % (8-40); MCH 29.5 pg (25.7-33.7); MCHC 34.2 g/dl (32.0-35.9); MEAN CELL VOLUME 86.3 fl (80-96); MEAN PLT VOLUME 8.2 fl (7.5-11.1); NEUT % 50.4 % (42.8-82.8); PLATELET COUNT 177 K/MM3 (134-434); RDW 15.8 % (11.9-15.9); WHITE BLOOD COUNT 2.3 K/mm3 (4.0-10.0)
[2019-08-02] MEDS: HEPARIN NA (PORCINE) 5,000 UNITS/ML 1ML VIAL SQ SCH (09:09)
[2019-08-02 09:22] LABS: BLOOD UREA NITROGEN 14.5 mg/dL (7-18); CALCIUM 8.9 mg/dL (8.5-10.1); POTASSIUM 3.4 mmol/L (3.5-5.1)
--- NOTE | 2019-08-02 09:39 | CON.CARD ---
Consult Consult Specialty:: Cardiology Referred by:: Hospitalist Reason for Consultation:: Cardiac evaluation - History of Present Illness Chief Complaint: Chest pain History of Present Illness: Patient is an 84 year old male seen by me in the office recently with underlying history of CAD s/p PCI/stent to mid RCA at [facility] , HTN, hypercholesterolemia and glaucoma who presents again with sharp mid sternal chest pressure. He was hospitalized previously this year and had an abnormal nuclear MPI which prompted him to be transferred to [facility]. He presented to my office thereafter at the referral by his PMD, Juan C Thrasher MD at [facility]. He then presented again to the office with atypical chest pain after having an argument with someone. He was given SL NTG and Morphine yesterday by the ED staff which made the pain better. Troponins were negative 3 sets and currently, he denies chest pain, shortness of breath or palpitations. He denies paroxysmal nocturnal dyspnea or orthopnea. He denies fever or chills. He denies headache or lightheadedness. He denies nausea, vomiting, diarrhea or abdominal pain. He is compliant with dual anti-platelet therapy (DAPT). - History Source History Provided By: Patient, Medical Record Limitations to Obtaining History: No Limitations - Past Medical History Cardio/Vascular: Yes: CAD, HTN, Hyperlipdemia - Past Surgical History Past Surgical History: Yes: Hernia Repair, Stent Additional Surgical History: Polyp removal with colonoscopy - Alcohol/Substance Use Hx Alcohol Use: No - Smoking History Smoking history: Never smoked Have you smoked in the past 12 months: No Aproximately how many cigarettes per day: 0 Home Medications - Allergies Allergies/Adverse Reactions: Allergies Allergy/AdvReac Type Severity Reaction Status Date / Time lactase [From Dairy Aid] Allergy Verified 08/01/19 14:17 Penicillins Allergy Verified 08/01/19 14:17 - Home Medications Home Medications: Ambulatory Orders Multivitamin [Multiple Vitamins] 1 each PO DAILY 08/10/18 Finasteride [Proscar -] 5 mg PO DAILY 06/26/19 Netarsudil Mesylate [Rhopressa] 2.5 ml OP DAILY 06/28/19 Aspirin [ASA -] 81 mg PO DAILY tab.chew 07/01/19 Amlodipine Besylate [Norvasc -] 5 mg PO DAILY #30 tablet 07/02/19 Atorvastatin Ca [Lipitor] 80 mg PO HS 08/01/19 Clopidogrel Bisulfate [Plavix] 75 mg PO DAILY 08/01/19 Isosorbide Mononitrate [Imdur -] 30 mg PO DAILY 08/01/19 Losartan Potassium 50 mg PO DAILY 08/01/19 Metoprolol Succinate 12.5 mg PO DAILY 08/01/19 Review of Systems - Review of Systems Constitutional: denies: Chills, Fever Cardiovascular: reports: Chest Pain. denies: Palpitations, Shortness of Breath Respiratory: denies: Cough, Hemoptysis, Orthopnea, PND, SOB, SOB on Exertion, Wheezing Gastrointestinal: denies: Abdominal Pain, Constipation, Diarrhea, Melena, Nausea , Rectal Bleeding, Vomiting Musculoskeletal: denies: Joint Pain Neurological: denies: Dizziness, Headache, Seizure, Syncope Vital Signs: Vital Signs Temperature 97.9 F 08/02/19 06:00 Pulse Rate 65 08/02/19 06:00 Respiratory Rate 18 08/02/19 06:00 Blood Pressure 165/87 08/02/19 06:00 O2 Sat by Pulse Oximetry (%) 100 08/02/19 01:27 Eyes: Yes: PERRL HENT: Yes: Atraumatic Neck: Yes: Supple Respiratory: Yes: CTA Bilaterally Gastrointestinal: Yes: Normal Bowel Sounds, Soft. No: Tenderness Cardiovascular: Yes: Regular Rate and Rhythm JVD: No PMI: Non-Displaced Heart Sounds: Yes: S1, S2 Murmur: Yes: Systolic Murmur, Grade 1 Edema: No - Other Data Labs, Other Data: CBC, BMP 08/02/19 08:20 08/02/19 08:20 INR, PTT INR 1.20 (0.83-1.09) H 08/01/19 14:36 Troponin, BNP 08/01/19 08/01/19 08/02/19 14:36 18:25 00:47 Troponin I < 0.02 < 0.02 < 0.02 Laboratory Results - last 24 hr 08/01/19 08/01/19 08/01/19 14:36 14:36 14:36 WBC 2.2 L RBC 4.06 Hgb 11.7 Hct 35.3 L D MCV 86.9 MCH 28.9 MCHC 33.3 RDW 15.8 Plt Count 158 MPV 8.0 Absolute Neuts (auto) 1.2 L Neutrophils % 51.5 D Lymphocytes % 28.7 D Monocytes % 17.6 H Eosinophils % 1.7 Basophils % 0.5 Nucleated RBC % 0 PT with INR 14.20 H INR 1.20 H PTT (Actin FS) 37.5 H Sodium 138 Potassium 3.8 Chloride 103 Carbon Dioxide 30 Anion Gap 5 L BUN 15.8 Creatinine 1.1 Est GFR (CKD-EPI)AfAm 70.08 Est GFR (CKD-EPI)NonAf 60.46 Random Glucose 114 H Calcium 8.2 L Total Bilirubin 0.5 AST 24 ALT 41 Alkaline Phosphatase 91 Creatine Kinase 102 Troponin I < 0.02 Total Protein 6.1 L Albumin 3.5 Blood Type Antibody Screen 08/02/19 08/02/19 08/02/19 00:47 08:20 08:20 WBC 2.3 L RBC 4.70 Hgb 13.9 Hct 40.6 D MCV 86.3 MCH 29.5 MCHC 34.2 RDW 15.8 Plt Count 177 MPV 8.2 Absolute Neuts (auto) 1.1 L Neutrophils % 50.4 Lymphocytes % 31.7 Monocytes % 16.0 H Eosinophils % 1.4 Basophils % 0.5 Nucleated RBC % 0 PT with INR INR PTT (Actin FS) Sodium 141 Potassium 3.4 L Chloride 104 Carbon Dioxide 33 H Anion Gap 5 L BUN 14.5 Creatinine 1.0 Est GFR (CKD-EPI)AfAm 78.64 Est GFR (CKD-EPI)NonAf 67.85 Random Glucose 118 H Calcium 8.9 Total Bilirubin AST ALT Alkaline Phosphatase Creatine Kinase Troponin I < 0.02 Total Protein Albumin Blood Type Antibody Screen Sinus rhythm with PVCs Imaging - Results Chest X-ray: Report Reviewed (Unremarkable) EKG: Report Reviewed Problem List - Problems (1) CAD (coronary artery disease) Code(s): I25.10 - ATHSCL HEART DISEASE OF [place] CORONARY ARTERY W/O ANG PCTRS Qualifiers: Coronary Disease-Associated Artery/Lesion type: [place] artery [place] vs. transplanted heart: [place] heart Associated angina: with stable angina Qualified Code(s): I25.118 - Atherosclerotic heart disease of [place] coronary artery with other forms of angina pectoris (2) HTN (hypertension) Code(s): I10 - ESSENTIAL (PRIMARY) HYPERTENSION Qualifiers: Hypertension type: essential hypertension Qualified Code(s): I10 - Essential (primary) hypertension (3) Hypercholesterolemia Code(s): E78.00 - PURE HYPERCHOLESTEROLEMIA, UNSPECIFIED (4) Chest pain Code(s): R07.9 - CHEST PAIN, UNSPECIFIED Qualifiers: Chest pain type: unspecified Qualified Code(s): R07.9 - Chest pain, unspecified (5) H/O heart artery stent Code(s): Z95.5 - PRESENCE OF CORONARY ANGIOPLASTY IMPLANT AND GRAFT Assessment/Plan 1. CAD s/p PCI/stent, angina pectoris 2. HTN 3. Hypercholesterolemia 4. Osteoarthritis 5. History of glaucoma PLAN: 1. ASA and Plavix 2. Increase Imdur to 60 ,g QD or add Ranexa 500 mg BID 3. Continue Metoprolol, Amlodipine and Losartan 4. Continue statin therapy May discharge home as he is ruled out for [place] with negative troponins Follow up in office ([facility]) latter part of the week Kp Garnett MD
[2019-08-02] MEDS ORDERED: FINASTERIDE 5 MG TABLET (FP) PO SCH (10:00)
[2019-08-02] MEDS ORDERED: ISOSORBIDE MONONITRATE 60 MG TAB.SR.24H (FP) PO SCH (10:00)
[2019-08-02] MEDS ORDERED: MULTIVITAMINS (DAILY MVI) TABLET (FP) PO SCH (10:00)
[2019-08-02] MEDS ORDERED: ISOSORBIDE MONONITRATE 30 MG TAB.SR.24H (FP) PO SCH ×2 (10:00)
[2019-08-02] MEDS ORDERED: metoPROLOL SUCCINATE 25 MG TAB.SR.24H (FP) PO SCH (10:00)
[2019-08-02] MEDS ORDERED: PATIENT'S OWN MEDICATION (NON-FORMULARY) (Netarsudil Mesylate [Rhopressa] 2.5 ML) OP SCH (10:00)
[2019-08-02] MEDS ORDERED: CLOPIDOGREL BISULFATE 75 MG TABLET (FP) PO SCH (10:00)
[2019-08-02] MEDS ORDERED: ASPIRIN 81 MG CHEWABLE TABLETS PO SCH (10:00)
[2019-08-02] MEDS ORDERED: amLODIPine BESYLATE 5 MG TABLET (FP) PO SCH (10:00)
[2019-08-02] MEDS ORDERED: LOSARTAN POTASSIUM 50 MG TABLET (FP) PO SCH (10:00)
[2019-08-02 11:02] VITALS: BP 146/72; PULSE 66; TEMP 97.8
--- NOTE | 2019-08-02 12:35 | ECHO ---
Name: GUERLINE CANTOR Exam:Adult Echocardiogram Study Date: 08/02/2019 10:48 AM Age: 84 yrs Reason For Study: R/O ACS Height: 69 in Weight: 137 lb BSA: 1.8 m2 MMode/2D Measurements & Calculations IVSd: 1.1 cm Ao root diam: 3.1 cm LVIDd: 4.0 cm LA dimension: 3.1 cm LVIDs: 2.9 cm LVPWd: 1.1 cm EDV(Teich): 70.4 ml LVOT diam: 2.0 cm ESV(Teich): 33.3 ml LAV (MOD-bp): 73.9 ml Doppler Measurements & Calculations MV E max trent: 43.2 cm/sec Ao V2 max: 133.0 cm/sec MV A max trent: 71.3 cm/sec Ao max P.1 mmHg MV E/A: 0.61 MV dec time: 0.17 sec AMMY(V,D): 2.1 cm2 LV V1 max P.9 mmHg MR max trent: 491.6 cm/sec LV V1 max: 84.9 cm/sec MR max P.0 mmHg TR max trent: 212.1 cm/sec PA V2 max: 99.1 cm/sec TR max P.1 mmHg PA max P.9 mmHg Med Peak E' Trent: 6.3 cm/sec PI Vmax: 194.1 cm/sec Med E/e': 6.8 Lat Peak E' Trent: 9.9 cm/sec Lat E/e': 4.4 Procedure A complete two-dimensional transthoracic echocardiogram was performed (2D, M-mode, Doppler and color flow Doppler). Left Ventricle The left ventricle is normal in size. Left ventricular systolic function is normal. Ejection Fraction = 60- 65%. Grade I diastolic dysfunction, (abnormal relaxation pattern). Ratio E/E'= 7. No regional wall mo tion abnormalities noted. Right Ventricle The right ventricle is normal size. The right ventricular systolic function is normal. Atria The left atrial size is normal. Right atrial size is normal. Mitral Valve The mitral valve is normal in structure and function. There is mild to moderate mitral regurgitation. Tricuspid Valve The tricuspid valve is normal in structure and function. There is mild tricuspid regurgitation. Right ventricular systolic pressure is normal. Aortic Valve There is mild aortic sclerosis.;. No aortic regurgitation is present. Pulmonic Valve The pulmonic valve is not well visualized. Mild to moderate pulmonic valvular regurgitation. Great Vessels The aortic root is normal size. Pericardium/Pleura There is no pericardial effusion. Interpretation Summary The left ventricle is normal in size. Left ventricular systolic function is normal. No regional wall motion abnormalities noted. LVEF estimated 60-65% Grade I diastolic dysfunction, (abnormal relaxation pattern). Ratio E/E'= 7 c/w normal filling pressure The right ventricular systolic function is normal. The left atrial size is normal. Right atrial size is normal. There is mild to moderate mitral regurgitation. There is mild tricuspid regurgitation. Right ventricular systolic pressure is normal. There is mild aortic sclerosis. Mild to moderate pulmonic valvular regurgitation. There is no pericardial effusion. When compared to study dated 06/28/19, filling pressure is less Kp Garnett MD 08/02/2019 12:35 PM
--- NOTE | 2019-08-02 13:13 | EKG ---
Test Reason : Blood Pressure : / mmHG Vent. Rate : 060 BPM Atrial Rate : 060 BPM P-R Int : 242 ms QRS Dur : 090 ms QT Int : 410 ms P-R-T Axes : 083 062 051 degrees QTc Int : 410 ms SINUS RHYTHM WITH 1ST DEGREE A-V BLOCK OTHERWISE NORMAL ECG WHEN COMPARED WITH ECG OF 01-AUG-2019 14:06, PREMATURE VENTRICULAR COMPLEXES ARE NO LONGER PRESENT MT INTERVAL HAS INCREASED Confirmed by EDUAR AZAR, MAGGIE ([id number]) on 08/02/2019 1:13:25 PM Referred By: Confirmed By:MAGGIE WITT MD
--- NOTE | 2019-08-02 14:32 | PN ---
Teaching Attending Note Name of Resident: Amparo Wade ATTENDING PHYSICIAN STATEMENT I saw and evaluated the patient. I reviewed the resident's note and discussed the case with the resident. I agree with the resident's findings and plan as documented. SUBJECTIVE: Patient is comfortable with no acute distress. No further chest pain or short of breath OBJECTIVE: Vital Signs Temperature 97.8 F 08/02/19 10:00 Pulse Rate 66 08/02/19 10:00 Respiratory Rate 18 08/02/19 10:00 Blood Pressure 146/72 08/02/19 10:00 O2 Sat by Pulse Oximetry (%) 100 08/02/19 09:00 GENERAL: The patient is awake, alert, and fully oriented, in no acute distress. HEAD: Normal with no signs of trauma. EYES: PERRL, extraocular movements intact, sclera anicteric, conjunctiva clear. ENT: Ears normal, oropharynx clear without exudates, moist mucous membranes. NECK: Trachea midline, full range of motion, supple. LUNGS: Breath sounds equal, clear to auscultation bilaterally, no wheezes, no crackles, no accessory muscle use. HEART: Regular rate and rhythm, S1, S2 without murmur, rub or gallop. ABDOMEN: Soft, NT,ND, normoactive bowel sounds, no guarding, no rebound, no hepatosplenomegaly, no masses. EXTREMITIES: 2+ pulses, warm, well-perfused, no edema. NEUROLOGICAL: Cranial nerves II through XII grossly intact. Normal speech, gait not observed. PSYCH: Normal mood, normal affect. SKIN: Warm, dry, normal turgor, no rashes or lesions noted CBCD WBC 2.3 K/mm3 (4.0-10.0) L 08/02/19 08:20 RBC 4.70 M/mm3 (4.00-5.60) 08/02/19 08:20 Hgb 13.9 GM/dL (11.7-16.9) 08/02/19 08:20 Hct 40.6 % (35.4-49) D 08/02/19 08:20 MCV 86.3 fl (80-96) 08/02/19 08:20 MCHC 34.2 g/dl (32.0-35.9) 08/02/19 08:20 RDW 15.8 % (11.9-15.9) 08/02/19 08:20 Plt Count 177 K/MM3 (134-434) 08/02/19 08:20 MPV 8.2 fl (7.5-11.1) 08/02/19 08:20 CMP Sodium 141 mmol/L (136-145) 08/02/19 08:20 Potassium 3.4 mmol/L (3.5-5.1) L 08/02/19 08:20 Chloride 104 mmol/L (98-107) 08/02/19 08:20 Carbon Dioxide 33 mmol/L (21-32) H 08/02/19 08:20 Anion Gap 5 MMOL/L (8-16) L 08/02/19 08:20 BUN 14.5 mg/dL (7-18) 08/02/19 08:20 Creatinine 1.0 mg/dL (0.55-1.3) 08/02/19 08:20 Random Glucose 118 mg/dL (74-106) H 08/02/19 08:20 Calcium 8.9 mg/dL (8.5-10.1) 08/02/19 08:20 Total Bilirubin 0.5 mg/dL (0.2-1) 08/01/19 14:36 AST 24 U/L (15-37) 08/01/19 14:36 ALT 41 U/L (13-61) 08/01/19 14:36 Alkaline Phosphatase 91 U/L (45-117) 08/01/19 14:36 Total Protein 6.1 g/dl (6.4-8.2) L 08/01/19 14:36 Albumin 3.5 g/dl (3.4-5.0) 08/01/19 14:36 CARDIAC ENZYMES Creatine Kinase 96 U/L (26-308) 08/01/19 18:25 Troponin I < 0.02 ng/ml (0.00-0.05) 08/02/19 00:47 Current Medications Generic Name Dose Route Start Last Admin Trade Name Freq PRN Reason Stop Dose Admin Acetaminophen 650 mg 08/01/19 17:31 Tylenol - PO Q6H PRN PAIN LEVEL 6-10 Amlodipine Besylate 5 mg 08/02/19 10:00 08/02/19 09:09 Norvasc - PO 5 mg DAILY NIELS Administration Aspirin 81 mg 08/02/19 10:00 08/02/19 09:09 Asa - PO 81 mg DAILY NIELS Administration Atorvastatin Calcium 80 mg 08/01/19 22:00 08/01/19 22:29 Lipitor - PO Not Given HS [facility] Clopidogrel Bisulfate 75 mg 08/02/19 10:00 08/02/19 09:10 Plavix - PO 75 mg DAILY NIELS Administration Finasteride 5 mg 08/02/19 10:00 08/02/19 09:09 Proscar - PO 5 mg DAILY NIELS Administration Heparin Sodium (Porcine) 5,000 unit 08/01/19 22:00 08/02/19 09:09 Heparin - SQ 5,000 unit BID NIELS Administration Isosorbide Mononitrate 60 mg 08/02/19 10:00 08/02/19 14:01 Imdur - PO Not Given DAILY [facility] Losartan Potassium 50 mg 08/02/19 10:00 08/02/19 09:09 Cozaar - PO 50 mg DAILY NIELS Administration Metoprolol Succinate 12.5 mg 08/02/19 10:00 08/02/19 09:09 Toprol Xl - PO 12.5 mg DAILY [facility] Administration Multivitamins/Minerals/Vitamin C 1 tab 08/02/19 10:00 08/02/19 09:09 Tab-A-Vit - PO 1 tab DAILY NIELS Administration Patient's Own Med( 1 each 08/02/19 22:00 [facility]) OU HS [facility] Pantoprazole Sodium 40 mg 08/02/19 08:30 08/02/19 08:23 Protonix - PO 40 mg DAILY@0800 NIELS Administration Home Medications Medication Instructions Recorded Multivitamin [Multiple Vitamins] 1 each PO DAILY 08/10/18 Finasteride [Proscar -] 5 mg PO DAILY 06/26/19 Netarsudil Mesylate [Rhopressa] 2.5 ml OP DAILY 06/28/19 Aspirin [ASA -] 81 mg PO DAILY tab.chew 07/01/19 Amlodipine Besylate [Norvasc -] 5 mg PO DAILY #30 tablet 07/02/19 Atorvastatin Ca [Lipitor] 80 mg PO HS 08/01/19 Clopidogrel Bisulfate [Plavix] 75 mg PO DAILY 08/01/19 Losartan Potassium 50 mg PO DAILY 08/01/19 Metoprolol Succinate 12.5 mg PO DAILY 08/01/19 Isosorbide Mononitrate [Imdur -] 60 mg PO DAILY #30 tab.sr.24h 08/02/19 Simethicone [Gas Relief] 80 mg PO DAILY PRN #30 tab.chew 08/02/19 Echo (06/28) showed normal LV, no wall motion abnormalities, LVEF 60-65%, grade II diastolic dysfunction, normal RV systolic function, mild to moderate MR, mild to moderate TR, mild NV Carotid dopplers show intimal thickening and small to moderate plaques at right common carotid bifurcation with no hemodynamically significant stenosis; moderate plaques at origin or right external carotid; intimal thickening and small plaques at left common carotid bifurcation with no hemodynamically significant stenosis. ASSESSMENT AND PLAN: Patient is an 84 year old man with a history of HTN, BPH, leukopenia,recent stent 2 weeks ago at [facility], presneted with having acute chest for 4 hrs. and the pain was relieved by SL nitro. # Acute chest pain with Hx of CAD s/p stents , 3 sets of troponin is negative, continue plavix/aspirin lipitor continue , cardio consult appreciated. Increased the dose of Imdur from 30mg to 60mg , also added ranexa 500mg bid. # HTN controlled continue Cozaar and norvasc 5mg # BPH Continue Proscar DVT Px: heparin.
--- NOTE | 2019-08-02 14:42 | DS ---
Physical Exam: SUBJECTIVE: Patient seen and examined. chest pain improved. OBJECTIVE: Vital Signs Period Temp Pulse Resp BP Sys/Werner Pulse Ox Last 24 Hr 97.6 F-98.3 F 55-68 15-18 113-165/58-87 98-100 PHYSICAL EXAM GENERAL: The patient is awake, alert, and fully oriented, in no acute distress. HEAD: Normal with no signs of trauma. EYES: PERRL, extraocular movements intact, sclera anicteric, conjunctiva clear. ENT: oropharynx clear without exudates, moist mucous membranes. LUNGS: Breath sounds equal, clear to auscultation bilaterally, no wheezes, no crackles, no accessory muscle use. HEART: Regular rate and rhythm, S1, S2 without murmur, rub or gallop. ABDOMEN: Soft, nontender, nondistended, normoactive bowel sounds, no guarding, no rebound, no hepatosplenomegaly, no masses. EXTREMITIES: 2+ pulses, warm, well-perfused, trace edema. NEUROLOGICAL: Cranial nerves II through XII grossly intact. Normal speech, gait not observed. strength 5/5 and sensation is intact. PSYCH: Normal mood, normal affect. LABS Laboratory Results - last 24 hr 08/01/19 08/01/19 08/01/19 14:36 14:36 14:36 WBC 2.2 L RBC 4.06 Hgb 11.7 Hct 35.3 L D MCV 86.9 MCH 28.9 MCHC 33.3 RDW 15.8 Plt Count 158 MPV 8.0 Absolute Neuts (auto) 1.2 L Neutrophils % 51.5 D Lymphocytes % 28.7 D Monocytes % 17.6 H Eosinophils % 1.7 Basophils % 0.5 Nucleated RBC % 0 PT with INR 14.20 H INR 1.20 H PTT (Actin FS) 37.5 H Sodium 138 Potassium 3.8 Chloride 103 Carbon Dioxide 30 Anion Gap 5 L BUN 15.8 Creatinine 1.1 Est GFR (CKD-EPI)AfAm 70.08 Est GFR (CKD-EPI)NonAf 60.46 Random Glucose 114 H Calcium 8.2 L Total Bilirubin 0.5 AST 24 ALT 41 Alkaline Phosphatase 91 Creatine Kinase 102 Troponin I < 0.02 Total Protein 6.1 L Albumin 3.5 Blood Type Antibody Screen 08/01/19 08/01/19 08/01/19 14:36 18:25 21:35 WBC RBC Hgb Hct MCV MCH MCHC RDW Plt Count MPV Absolute Neuts (auto) Neutrophils % Lymphocytes % Monocytes % Eosinophils % Basophils % Nucleated RBC % PT with INR INR PTT (Actin FS) Sodium Potassium Chloride Carbon Dioxide Anion Gap BUN Creatinine Est GFR (CKD-EPI)AfAm Est GFR (CKD-EPI)NonAf Random Glucose Calcium Total Bilirubin AST ALT Alkaline Phosphatase Creatine Kinase 96 Troponin I < 0.02 Total Protein Albumin Blood Type O POSITIVE O POSITIVE Antibody Screen Negative 08/02/19 08/02/19 08/02/19 00:47 08:20 08:20 WBC 2.3 L RBC 4.70 Hgb 13.9 Hct 40.6 D MCV 86.3 MCH 29.5 MCHC 34.2 RDW 15.8 Plt Count 177 MPV 8.2 Absolute Neuts (auto) 1.1 L Neutrophils % 50.4 Lymphocytes % 31.7 Monocytes % 16.0 H Eosinophils % 1.4 Basophils % 0.5 Nucleated RBC % 0 PT with INR INR PTT (Actin FS) Sodium 141 Potassium 3.4 L Chloride 104 Carbon Dioxide 33 H Anion Gap 5 L BUN 14.5 Creatinine 1.0 Est GFR (CKD-EPI)AfAm 78.64 Est GFR (CKD-EPI)NonAf 67.85 Random Glucose 118 H Calcium 8.9 Total Bilirubin AST ALT Alkaline Phosphatase Creatine Kinase Troponin I < 0.02 Total Protein Albumin Blood Type Antibody Screen HOSPITAL COURSE: Date of Admission:08/01/19 84 y/o M with PMH of CAD s/p stent placement 2 weeks ago at [facility], HTN, BPH, Chronic leukopenia, glaucoma who presented to the ED because of chest pain admitted to r/o ACS. Trops were negative 3x. ekg showed no acute changes. repeat echo also showed no acute changes compared to the recent one from june 2019. Cardiology saw pt and found CA/ACS unlikely; rec to cont asa and plavix. Imdur increased to 60mg for better manage anginal pain. Pt symptoms improved with said treatment and d/c to f/u with cardio and his pcp as o/p Date of Discharge: 08/02/19 Minutes to complete discharge: 35 Discharge Summary Problems reviewed: Yes Reason For Visit: PRESENCE OF STENT IN CORONARY ARTERY IN PATIENT [place] Current Active Problems CAD (coronary artery disease) (Acute) Chest pain (Acute) H/O heart artery stent (Acute) HTN (hypertension) (Acute) Hypercholesterolemia (Acute) Condition: Stable - Instructions Diet, Activity, Other Instructions: You came into the ED because of chest pain. We tested your blood for signs of heart attack which was negative. We also analyzed your heart rhythm which came back with no acute changes. We did an ultrasound of your heart and it showed no interval changes from your most recent one in june. We increased your imdur to 60mg to prevent recurrent anginal pain. Your symptoms have improved you are now ready to be discharged home. Medications: Please resume all of your home medications; however we have made some changes: Please begin to take Imdur 60mg by mouth daily instead of 30mg. Please take gasX once a day as needed. Added Ranexa by your title attorney 500mg orally 2x per day Follow up: Please follow up with your PCP Dr Thrasher within one week. Please follow up with your title attorney Dr Garnett within one week. If you begin to experience worsening chest pain, shortness of breath, dizziness , bleeding please return to the Emergency room immediately. Referrals: Kp Garnett MD [Staff Physician] - 1 Week Juan C Thrasher MD [Primary Care Provider] - 1 Week Disposition: HOME - Home Medications Comprehensive Discharge Medication List: Ambulatory Orders Multivitamin [Multiple Vitamins] 1 each PO DAILY 08/10/18 Finasteride [Proscar -] 5 mg PO DAILY 06/26/19 Netarsudil Mesylate [Rhopressa] 2.5 ml OP DAILY 06/28/19 Aspirin [ASA -] 81 mg PO DAILY tab.chew 07/01/19 Amlodipine Besylate [Norvasc -] 5 mg PO DAILY #30 tablet 07/02/19 Atorvastatin Ca [Lipitor] 80 mg PO HS 08/01/19 Clopidogrel Bisulfate [Plavix] 75 mg PO DAILY 08/01/19 Losartan Potassium 50 mg PO DAILY 08/01/19 Metoprolol Succinate 12.5 mg PO DAILY 08/01/19 Isosorbide Mononitrate [Imdur -] 60 mg PO DAILY #30 tab.sr.24h 08/02/19 Ranolazine [Ranexa] 500 mg PO BID #60 tab.er.12h 08/02/19 Simethicone [Gas Relief] 80 mg PO DAILY PRN #30 tab.chew 08/02/19 Problem List - Problems (1) HTN (hypertension) Code(s): I10 - ESSENTIAL (PRIMARY) HYPERTENSION Qualifiers: Hypertension type: essential hypertension Qualified Code(s): I10 - Essential (primary) hypertension (2) Hypercholesterolemia Code(s): E78.00 - PURE HYPERCHOLESTEROLEMIA, UNSPECIFIED (3) CAD (coronary artery disease) Code(s): I25.10 - ATHSCL HEART DISEASE OF [place] CORONARY ARTERY W/O ANG PCTRS Qualifiers: Coronary Disease-Associated Artery/Lesion type: [place] artery [place] vs. transplanted heart: [place] heart Associated angina: with stable angina Qualified Code(s): I25.118 - Atherosclerotic heart disease of [place] coronary artery with other forms of angina pectoris (4) H/O heart artery stent Code(s): Z95.5 - PRESENCE OF CORONARY ANGIOPLASTY IMPLANT AND GRAFT (5) Chest pain Code(s): R07.9 - CHEST PAIN, UNSPECIFIED Qualifiers: Chest pain type: unspecified Qualified Code(s): R07.9 - Chest pain, unspecified This patient is new to me today: No Emergency Visit: Yes ED Registration Date: 08/01/19 Care time: The patient presented to the Emergency Department on the above date and was hospitalized for further evaluation of their emergent condition. Critical Care patient: No - Discharge Referral Referred to [facility] Med P.C[facility] No ATTENDING PHYSICIAN STATEMENT I saw and evaluated the patient. I reviewed the resident's note and discussed the case with the resident. I agree with the resident's findings and plan as documented. SUBJECTIVE: OBJECTIVE: ASSESSMENT AND PLAN:
[2019-08-02] MEDS ORDERED: POTASSIUM CHLORIDE TABS 20 MEQ TABLET.ER (FP) PO ONE (15:16)
[2019-08-02] MEDS ORDERED: ROCKLATAN OU SCH (22:00)
== END 2019-08-02 15:18 | disposition home or self-care (01) ==
LOC: JER 13:57 → JERBED 15:27 → INTOOBSV 15:27 → J4W 21:07
PROVIDERS: ADMIT Internal Medicine; ATTEND Internal Medicine
PROC: 3E033NZ Introduction of Analgesics, Hypnotics, Sedatives into Peripheral Vein, Percutaneous Approach (ICD-10-PCS; principal; 2019-08-01)
PROC: 3E033GC Introduction of Other Therapeutic Substance into Peripheral Vein, Percutaneous Approach (ICD-10-PCS; 2019-08-01)
PROC: 3E013GC Introduction of Other Therapeutic Substance into Subcutaneous Tissue, Percutaneous Approach (ICD-10-PCS; 2019-08-01)
DX: R07.89 Other chest pain (principal); I10 Essential (primary) hypertension; I25.118 Atherosclerotic heart disease of native coronary artery with other forms of angina pectoris; E78.5 Hyperlipidemia, unspecified; D72.819 Decreased white blood cell count, unspecified; K21.9 Gastro-esophageal reflux disease without esophagitis; N40.0 Benign prostatic hyperplasia without lower urinary tract symptoms; H40.9 Unspecified glaucoma; Z95.5 Presence of coronary angioplasty implant and graft; Z79.82 Long term (current) use of aspirin; Z79.02 Long term (current) use of antithrombotics/antiplatelets; Z91.011 Allergy to milk products; Z88.0 Allergy status to penicillin
CPT/HCPCS: 36415; 71045-TC-FY; 80048; 80053; 82550; 84484; 85025; 85610; 85730; 86850; 86900; 86901; 93005; 93010; 93306-TC; 96365; 96372; 96375; 99285-25; G0378; J0131; J1644

== ENCOUNTER 2019-08-24 14:03 | Observation (INO) | payer OTHER ==
--- NOTE | 2019-08-24 14:37 | PDOC ---
History of Present Illness - General Chief Complaint: Chest Pain Stated Complaint: CHEST PAIN Time Seen by Provider: 08/24/19 14:07 - History of Present Illness Initial Comments: 08/24/19 14:39 84 yo M PMH CAD s/p stent 1.5 months ago at [facility] on aspirin/Plavix, HTN, BPH, chronic leukopenia, glaucoma, presenting with chest pain. Began around 1200 today, sternal, sharp, chest tightness, non-radiating. Stated that he took some Gas X, which diminished the symptoms without entirely removing them. Overall, chest pain diminished. Denies SOB, N/V, diaphoresis. Further denies fevers/ chills, diarrhea, abdominal pain, urinary symptoms. Had constipation 2 days ago which resolved, last BM this morning. Patient states "this could just be gas pain, I'm not sure". Notably, patient was seen here 3 weeks ago for anginal symptoms, negative trops and EKG, increased Imdur at that time. Past History - Past Medical History Allergies/Adverse Reactions: Allergies Allergy/AdvReac Type Severity Reaction Status Date / Time lactase [From Dairy Aid] Allergy Verified 08/01/19 14:17 Penicillins Allergy Verified 08/01/19 14:17 Home Medications: Ambulatory Orders Multivitamin [Multiple Vitamins] 1 each PO DAILY 08/10/18 Finasteride [Proscar -] 5 mg PO DAILY 06/26/19 Netarsudil Mesylate [Rhopressa] 2.5 ml OP DAILY 06/28/19 Aspirin [ASA -] 81 mg PO DAILY tab.chew 07/01/19 Amlodipine Besylate [Norvasc -] 5 mg PO DAILY #30 tablet 07/02/19 Atorvastatin Ca [Lipitor] 80 mg PO HS 08/01/19 Clopidogrel Bisulfate [Plavix] 75 mg PO DAILY 08/01/19 Losartan Potassium 50 mg PO DAILY 08/01/19 Metoprolol Succinate 12.5 mg PO DAILY 08/01/19 Isosorbide Mononitrate [Imdur -] 60 mg PO DAILY #30 tab.sr.24h 08/02/19 Ranolazine [Ranexa] 500 mg PO BID #60 tab.er.12h 08/02/19 Simethicone [Gas Relief] 80 mg PO DAILY PRN #30 tab.chew 08/02/19 Anemia: No Asthma: No Cancer: No Cardiac Disorders: Yes (CAD s/p stent) CVA: No COPD: No CHF: No Dementia: No Diabetes: No GI Disorders: No Disorders: Yes (BPH) HTN: Yes Hypercholesterolemia: No Liver Disease: No Seizures: No Thyroid Disease: No - Surgical History Abdominal Surgery: Yes (right inguinal hernia repair) Cardiac Surgery: Yes (stent placement) Lung Surgery: No Neurologic Surgery: No - Immunization History Immunization Up to Date: Yes - Psycho Social/Smoking Cessation Hx Smoking Status: No Smoking History: Never smoked Have you smoked in the past 12 months: No Number of Cigarettes Smoked Daily: 0 Hx Alcohol Use: No Drug/Substance Use Hx: No Substance Use Type: None Hx Substance Use Treatment: No Review of Systems - Review of Systems Able to Perform ROS?: Yes Constitutional: No: Chills, Diaphoresis, Fever HEENTM: No: Recent change in vision, Hearing Loss, Difficulty Swallowing Respiratory: No: Cough, Shortness of Breath Cardiac (ROS): Yes: Chest Pain, Chest Tightness ABD/GI: Yes: Constipated (2 days ago, now resolved). No: Diarrhea, Nausea, Vomiting : No: Burning, Dysuria, Discharge, Frequency Musculoskeletal: No: Back Pain, Muscle Pain Neurological: No: Headache, Numbness, Tingling, Weakness *Physical Exam - Physical Exam Comments: 08/24/19 14:46 Gen: well-developed, well-nourished, NAD Neuro: AAOX4, CN II-XII intact, FTN intact, EOMI, PERRLA, 5/5 strength, SILT HEENT: atraumatic, normocephalic Neck: trachea midline, supple CV: regular rate, regular rhythm, no murmurs, rubs, or gallops Pulm: CTA b/l, no wheezing Abd: soft, non-distended, non-tender MSK: full ROM, intact pulses Extr: no edema, no deformities Skin: warm, dry Heart Score/ECG Review - History History: Slightly suspicious - Electrocardiogram EKG: Non specific repolarization disturbance - Age Age: >/= 65 - Risk Factors Risk Factors Heart Score: Yes Hx Hypercholesterolemia, Yes Hx Hypertension, Yes Hx Diabetes, Yes Positive family hx of cardiac disease Based on the list above the patient has:: >/=3 risk factors or Hx atherosclerotic disease - Troponin Troponin: </= normal limit - Score Heart Score - Total: 5 ED Treatment Course - LABORATORY CBC & Chemistry Diagram: 08/24/19 14:42 08/24/19 14:42 Medical Decision Making - Medical Decision Making 08/24/19 14:46 Concern for ACS v angina. - CBC, CMP, trop - EKG, CXR - reassess 08/24/19 14:56 EKG normal sinus at 64 bpm, poor baseline, no ST segment elevation or T wave inversions 08/24/19 15:03 CXR with no acute pathology. 08/24/19 16:19 WBC 2.1, patient with history of leukopenia. Otherwise unremarkable. Will admit for tele obs. Discharge - Discharge Information Problems reviewed: Yes Clinical Impression/Diagnosis: Chest pain - Follow up/Referral - Patient Discharge Instructions - Post Discharge Activity
--- NOTE | 2019-08-24 14:51 | EKG ---
Test Reason : Blood Pressure : / mmHG Vent. Rate : 064 BPM Atrial Rate : 064 BPM P-R Int : 160 ms QRS Dur : 080 ms QT Int : 410 ms P-R-T Axes : 081 069 057 degrees QTc Int : 422 ms POOR DATA QUALITY, INTERPRETATION MAY BE ADVERSELY AFFECTED NORMAL SINUS RHYTHM MODERATE VOLTAGE CRITERIA FOR LVH, MAY BE NORMAL VARIANT BORDERLINE ECG WHEN COMPARED WITH ECG OF 02-AUG-2019 01:10, [place] INTERVAL HAS DECREASED Confirmed by MD Roc, Jasper ([id number]) on 08/24/2019 2:51:02 PM Referred By: Confirmed By:Jasper Brian MD
[2019-08-24 15:04] LABS: BASO % 0.5 % (0-2.0); EOS % 0.7 % (0-4.5); HEMATOCRIT 38.8 % (35.4-49); HEMOGLOBIN 13.2 GM/dL (11.7-16.9); LYMPH % 34.8 % (8-40); MCH 29.3 pg (25.7-33.7); MCHC 34.1 g/dl (32.0-35.9); MONO % 21.5 % (3.8-10.2); NEUT % 42.5 % (42.8-82.8); PLATELET COUNT 154 K/MM3 (134-434); RBC 4.51 M/mm3 (4.00-5.60); RDW 15.4 % (11.9-15.9); WHITE BLOOD COUNT 2.1 K/mm3 (4.0-10.0)
[2019-08-24 15:11] LABS: INR 1.09 (0.83-1.09); PROTHROMBIN TIME (PATIENT) 12.9 SEC (9.7-13.0)
[2019-08-24 15:14] LABS: ACTIVATED PTT 35.8 SECONDS (25.2-36.5)
[2019-08-24 15:31] LABS: BILIRUBIN,TOTAL 0.6 mg/dL (0.2-1); BLOOD UREA NITROGEN 18.4 mg/dL (7-18); CALCIUM 8.9 mg/dL (8.5-10.1); CREATININE 1.1 mg/dL (0.55-1.3); POTASSIUM 4.6 mmol/L (3.5-5.1); TOT PROT 7.1 g/dl (6.4-8.2)
[2019-08-24 15:39] LABS: PLATELET ESTIMATE DECREASED
--- NOTE | 2019-08-24 16:23 | PDOC ---
Documentation entered by Franci Damon SCRIBE, acting as scribe for Jude Benitez MD. Jude Benitez MD: This documentation has been prepared by the Marisol cleaning Adrianna, SCRIBE, under my direction and personally reviewed by me in its entirety. I confirm that the documentation accurately reflects all work, treatment, procedures, and medical decision making performed by me. Attending Attestation - Resident Resident Name: SusannahBrisa - ED Attending Attestation I have performed the following: I have examined & evaluated the patient, The case was reviewed & discussed with the resident, I agree w/resident's findings & plan, Exceptions are as noted - HPI HPI: The patient is an 84 year old male, with a significant PMH of hypertension, hyperlipidemia, coronary artery disease (s/p 2 stents), benign prostatic hyperplasia, glaucoma, chronic leukopenia, and gastroesophageal reflux disorder , who presents to the ED for evaluation of chest pain that began earlier today. Patient was working earlier today when he bent over and developed sudden onset chest tightness that is sharp, localized to the sternum, and was slightly alleviated with Gas X. Patient believes it is gas pain, but came to the ED for evaluation. Denies fever, chills, shortness of breath, nausea, vomit, diarrhea, abdominal pain, dysuria, hematuria. Allergies: Lactase, penicillins Surgical History: 2 stents Social History: Denies EtOH, tobacco,or illicit drug use PCP: Dr. Thrasher Office Services Manager: Dr. Garnett - Physicial Exam PE: Vitals: Triage Vital signs reviewed General Appearance: no acute distress, well nourished well developed, Chest Wall: Nontender Cardiac: Regular rate and rhythm, no murmurs, no rubs, no gallops, Lungs: Clear to auscultation bilateral, good air movement bilaterally, Abdomen: Soft, nondistended, normal bowel sounds, nontender to palpation Extremities: Full range of motion to all extremities, no cyanosis, clubbing, or edema Skin: Warm and dry, no rashes or lesions, no petechiae Psych: normal mood, normal affect - Medical Decision Making 08/24/19 17:03 Heart score 5 chest discomfort and high risk patient nonischemic EKG troponin negative We will observe on medicine further management Heart Score/ECG Review - ECG Impressions Comment:: EKG performed at 14:22:34 demonstrates rate of 64bpm, normal sinus rhythm, moderate voltage criteria for LVH, may be normal variant.
[2019-08-24] MEDS ORDERED: SIMETHICONE 80 MG TAB.CHEW (FP) PO ONE (16:36)
--- NOTE | 2019-08-24 18:37 | PN ---
Teaching Attending Note Name of Resident: Blanca Agarwal ATTENDING PHYSICIAN STATEMENT I saw and evaluated the patient. I reviewed the resident's note and discussed the case with the resident. I agree with the resident's findings and plan as documented. SUBJECTIVE: Chest pain resolved. No palpitations/SOB. No sweating/ lightheadedness OBJECTIVE: Afebrile, Hemodynamically Stable. Last Vital Signs Temp Pulse Resp BP Pulse Ox 98.4 F 64 18 148/73 99 08/24/19 14:29 08/24/19 14:29 08/24/19 14:29 08/24/19 14:29 08/24/19 14:29 HEENT - Atraumatic, Normocephalic. Heart - S1, S2, RRR Lungs - clear to auscultation Abdomen - soft, non-tender. Bowel Sounds normal. Extremities - no edema, no calf tenderness. Laboratory Results - last 24 hr 08/24/19 08/24/19 08/24/19 14:42 14:42 14:42 WBC 2.1 L RBC 4.51 Hgb 13.2 Hct 38.8 MCV 86.0 MCH 29.3 MCHC 34.1 RDW 15.4 Plt Count 154 MPV 9.0 Absolute Neuts (auto) 0.9 L Neutrophils % 42.5 L Neutrophils % (Manual) 37.3 L D Band Neutrophils % 0.0 Lymphocytes % 34.8 Lymphocytes % (Manual) 30.4 Monocytes % 21.5 H Monocytes % (Manual) 21 H Eosinophils % 0.7 Eosinophils % (Manual) 3.9 D Basophils % 0.5 Basophils % (Manual) 0.0 Myelocytes % (Man) 0 Promyelocytes % (Man) 0 Blast Cells % (Manual) 0 Nucleated RBC % 0 Metamyelocytes 0 Platelet Estimate Decreased PT with INR 12.90 INR 1.09 PTT (Actin FS) 35.8 Sodium 137 Potassium 4.6 Chloride 101 Carbon Dioxide 31 Anion Gap 4 L BUN 18.4 H Creatinine 1.1 Est GFR (CKD-EPI)AfAm 70.08 Est GFR (CKD-EPI)NonAf 60.46 Random Glucose 100 Calcium 8.9 Total Bilirubin 0.6 AST 34 ALT 70 H Alkaline Phosphatase 109 Troponin I Total Protein 7.1 Albumin 4.0 08/24/19 14:42 WBC RBC Hgb Hct MCV MCH MCHC RDW Plt Count MPV Absolute Neuts (auto) Neutrophils % Neutrophils % (Manual) Band Neutrophils % Lymphocytes % Lymphocytes % (Manual) Monocytes % Monocytes % (Manual) Eosinophils % Eosinophils % (Manual) Basophils % Basophils % (Manual) Myelocytes % (Man) Promyelocytes % (Man) Blast Cells % (Manual) Nucleated RBC % Metamyelocytes Platelet Estimate PT with INR INR PTT (Actin FS) Sodium Potassium Chloride Carbon Dioxide Anion Gap BUN Creatinine Est GFR (CKD-EPI)AfAm Est GFR (CKD-EPI)NonAf Random Glucose Calcium Total Bilirubin AST ALT Alkaline Phosphatase Troponin I < 0.02 Total Protein Albumin Home Medications Medication Instructions Recorded Multivitamin [Multiple Vitamins] 1 each PO DAILY 08/10/18 Finasteride [Proscar -] 5 mg PO DAILY 06/26/19 Netarsudil Mesylate [Rhopressa] 2.5 ml OP DAILY 06/28/19 Aspirin [ASA -] 81 mg PO DAILY tab.chew 07/01/19 Amlodipine Besylate [Norvasc -] 5 mg PO DAILY #30 tablet 07/02/19 Atorvastatin Ca [Lipitor] 80 mg PO HS 08/01/19 Clopidogrel Bisulfate [Plavix] 75 mg PO DAILY 08/01/19 Losartan Potassium 50 mg PO DAILY 08/01/19 Metoprolol Succinate 12.5 mg PO DAILY 08/01/19 Isosorbide Mononitrate [Imdur -] 60 mg PO DAILY #30 tab.sr.24h 08/02/19 Ranolazine [Ranexa] 500 mg PO BID #60 tab.er.12h 08/02/19 Simethicone [Gas Relief] 80 mg PO DAILY PRN #30 tab.chew 08/02/19 ASSESSMENT AND PLAN: 84 year old male with history of CAD (s/p stent 6 weeks ago at [facility]), HTN , HLD, BPH, chronic leukopenia, Glaucoma presents to the ED with recurrent chest pain. 1. Recurrent CP with Hx of CAD (s/p PCI/Stent) Troponin neg x 3. ECG - NSR, no ST/T wave evaluation Echo - Grade I diastolic dysfunction, EF 60-65% Nitro PRN Cardio consulted. Continue Aspirin, Plavix, Imdur, toprol XL, Ranexa. 2. HTN - Continue Imdur, Toprol. 3. HLD - Continue Lipitor. 4. BPH -Continue Proscar 5. Chronic Leukopenia/Neutropenia - no signs of infection/sepsis. Will consult Hematology.
--- NOTE | 2019-08-24 19:49 | PN ---
Physical Exam: SUBJECTIVE: Patient seen and examined OBJECTIVE: Vital Signs Period Temp Pulse Resp BP Sys/Werner Pulse Ox Last 24 Hr 98.4 F-98.6 F 64-64 18-18 148-148/73-73 99-99 GENERAL: The patient is awake, alert, and fully oriented, in no acute distress. HEAD: Normal with no signs of trauma. EYES: PERRL, extraocular movements intact, sclera anicteric, conjunctiva clear. No ptosis. ENT: Ears normal, nares patent, oropharynx clear without exudates, moist mucous membranes. NECK: Trachea midline, full range of motion, supple. LUNGS: Breath sounds equal, clear to auscultation bilaterally, no wheezes, no crackles, no accessory muscle use. HEART: Regular rate and rhythm, S1, S2 without murmur, rub or gallop. ABDOMEN: Soft, nontender, nondistended, normoactive bowel sounds, no guarding, no rebound, no hepatosplenomegaly, no masses. EXTREMITIES: 2+ pulses, warm, well-perfused, no edema. NEUROLOGICAL: Cranial nerves II through XII grossly intact. Normal speech, gait not observed. PSYCH: Normal mood, normal affect. SKIN: Warm, dry, normal turgor, no rashes or lesions noted Laboratory Results - last 24 hr 08/24/19 08/24/19 08/24/19 14:42 14:42 14:42 WBC 2.1 L RBC 4.51 Hgb 13.2 Hct 38.8 MCV 86.0 MCH 29.3 MCHC 34.1 RDW 15.4 Plt Count 154 MPV 9.0 Absolute Neuts (auto) 0.9 L Neutrophils % 42.5 L Neutrophils % (Manual) 37.3 L D Band Neutrophils % 0.0 Lymphocytes % 34.8 Lymphocytes % (Manual) 30.4 Monocytes % 21.5 H Monocytes % (Manual) 21 H Eosinophils % 0.7 Eosinophils % (Manual) 3.9 D Basophils % 0.5 Basophils % (Manual) 0.0 Myelocytes % (Man) 0 Promyelocytes % (Man) 0 Blast Cells % (Manual) 0 Nucleated RBC % 0 Metamyelocytes 0 Platelet Estimate Decreased PT with INR 12.90 INR 1.09 PTT (Actin FS) 35.8 Sodium 137 Potassium 4.6 Chloride 101 Carbon Dioxide 31 Anion Gap 4 L BUN 18.4 H Creatinine 1.1 Est GFR (CKD-EPI)AfAm 70.08 Est GFR (CKD-EPI)NonAf 60.46 Random Glucose 100 Calcium 8.9 Total Bilirubin 0.6 AST 34 ALT 70 H Alkaline Phosphatase 109 Troponin I Total Protein 7.1 Albumin 4.0 08/24/19 08/24/19 14:42 18:51 WBC RBC Hgb Hct MCV MCH MCHC RDW Plt Count MPV Absolute Neuts (auto) Neutrophils % Neutrophils % (Manual) Band Neutrophils % Lymphocytes % Lymphocytes % (Manual) Monocytes % Monocytes % (Manual) Eosinophils % Eosinophils % (Manual) Basophils % Basophils % (Manual) Myelocytes % (Man) Promyelocytes % (Man) Blast Cells % (Manual) Nucleated RBC % Metamyelocytes Platelet Estimate PT with INR INR PTT (Actin FS) Sodium Potassium Chloride Carbon Dioxide Anion Gap BUN Creatinine Est GFR (CKD-EPI)AfAm Est GFR (CKD-EPI)NonAf Random Glucose Calcium Total Bilirubin AST ALT Alkaline Phosphatase Troponin I < 0.02 < 0.02 Total Protein Albumin ASSESSMENT/PLAN: ATTENDING PHYSICIAN STATEMENT I saw and evaluated the patient. I reviewed the resident's note and discussed the case with the resident. I agree with the resident's findings and plan as documented. SUBJECTIVE: OBJECTIVE: ASSESSMENT AND PLAN:
[2019-08-24] MEDS ORDERED: SIMETHICONE 80 MG TAB.CHEW (FP) PO PRN (19:50)
--- NOTE | 2019-08-24 19:52 | HP ---
CHIEF COMPLAINT: chest pain PCP: Dr. Mosher Cardio: Dr. Garnett POC: Daughter, Tamera Mccray - HISTORY OF PRESENT ILLNESS: 84M w/ pmhx of CAD (s/p stent 1.5 months ago at [facility]), HTN, HLD, BPH, chronic leukopenia, glaucoma presents to the ED with chest pain that started this morning. States he was cleaning a mat in his bathroom, when he bent over and started feeling localized substernal chest tightness/pain. Pt say she took Zantac for the pain which did give him mild symptomatic relief temporarily but it came back soon afterwards. States he usually gets stomach pains due to gas and constipation, however this pain was different from his gas pain. Denies mac/d , f/c, n/v, sob, abd pain, urinary symptoms. Admits to chronic constipation in which he takes Simethicone. At baseline, pt states he lives alone at home and uses walker to ambulate. ER course was notable for: (1) WBC 2.1, trops neg x2, EKG showed NSR, no ST-T changes or TWI (2) CXR unremarkable for acute disease (3) Recent Travel: Denies PAST MEDICAL HISTORY: As per HPI PAST SURGICAL HISTORY: hernia repair x7 years ago partial prostatectomy x20 years ago Social History: Smoking: Denies Alcohol: Denies Drugs: Denies Currently lives alone at home, uses walker to ambulate Allergies lactase [From Dairy Aid] Allergy (Verified 08/01/19 14:17) Penicillins Allergy (Verified 08/01/19 14:17) HOME MEDICATIONS: Home Medications Medication Instructions Recorded Multivitamin [Multiple Vitamins] 1 each PO DAILY 08/10/18 Finasteride [Proscar -] 5 mg PO DAILY 06/26/19 Netarsudil Mesylate [Rhopressa] 2.5 ml OP DAILY 06/28/19 Aspirin [ASA -] 81 mg PO DAILY tab.chew 07/01/19 Amlodipine Besylate [Norvasc -] 5 mg PO DAILY #30 tablet 07/02/19 Atorvastatin Ca [Lipitor] 80 mg PO HS 08/01/19 Clopidogrel Bisulfate [Plavix] 75 mg PO DAILY 08/01/19 Losartan Potassium 50 mg PO DAILY 08/01/19 Metoprolol Succinate 12.5 mg PO DAILY 08/01/19 Isosorbide Mononitrate [Imdur -] 60 mg PO DAILY #30 tab.sr.24h 08/02/19 Ranolazine [Ranexa] 500 mg PO BID #60 tab.er.12h 08/02/19 Simethicone [Gas Relief] 80 mg PO DAILY PRN #30 tab.chew 08/02/19 REVIEW OF SYSTEMS CONSTITUTIONAL: Absent: fever, chills, diaphoresis, generalized weakness, malaise, loss of appetite, weight change HEENT: Absent: rhinorrhea, nasal congestion, throat pain, throat swelling, difficulty swallowing, mouth swelling, ear pain, eye pain, visual changes CARDIOVASCULAR: +chest tightness Absent: chest pain, syncope, palpitations, irregular heart rate, lightheadedness , peripheral edema RESPIRATORY: Absent: cough, shortness of breath, dyspnea with exertion, orthopnea, wheezing, stridor, hemoptysis GASTROINTESTINAL: +constipation Absent: abdominal pain, abdominal distension, nausea, vomiting, diarrhea, melena , hematochezia GENITOURINARY: Absent: dysuria, frequency, urgency, hesitancy, hematuria, flank pain, genital pain MUSCULOSKELETAL: Absent: myalgia, arthralgia, joint swelling, back pain, neck pain NEUROLOGIC: Absent: headache, focal weakness or paresthesias, dizziness, unsteady gait, seizure, mental status changes, bladder or bowel incontinence PHYSICAL EXAMINATION Vital Signs - 24 hr 08/24/19 08/24/19 14:15 14:29 Temperature 98.6 F 98.4 F Pulse Rate 64 Pulse Rate [ 64 Left Brachial] Respiratory 18 18 Rate Blood Pressure 148/73 Blood Pressure 148/73 [Left Arm] O2 Sat by Pulse 99 99 Oximetry (%) GENERAL: AAOx3. NAD. Pleasant, well-appearing elderly male. HEENT: AT/NC. EOMI. MMM. Facial symmetry noted. NECK: Normal range of motion, supple without lymphadenopathy, JVD, or masses. LUNGS: CTA B/L. No wheezes, rhonchi, rales noted. Symmetric chest rise. HEART: RRR. Normal S1, S2. No murmurs noted. Reproducible mid-sternal chest tenderness upon palpation. ABDOMEN: Soft, NT/ND. Normoactive bowel sounds. No masses noted. MUSCULOSKELETAL: Normal range of motion at all joints. No bony deformities or tenderness. No CVA tenderness. 2+ dorsalis pedis pulses. EXTREMITIES: 5/5 muscle strength in u/l b/l extremities. NEUROLOGICAL: Cranial nerves II-XII intact. Normal speech. Follows all commands appropriately. SKIN: Warm, dry, normal turgor, no rashes or lesions noted, normal capillary refill. Laboratory Results - last 24 hr 08/24/19 08/24/19 08/24/19 14:42 14:42 14:42 WBC 2.1 L RBC 4.51 Hgb 13.2 Hct 38.8 MCV 86.0 MCH 29.3 MCHC 34.1 RDW 15.4 Plt Count 154 MPV 9.0 Absolute Neuts (auto) 0.9 L Neutrophils % 42.5 L Neutrophils % (Manual) 37.3 L D Band Neutrophils % 0.0 Lymphocytes % 34.8 Lymphocytes % (Manual) 30.4 Monocytes % 21.5 H Monocytes % (Manual) 21 H Eosinophils % 0.7 Eosinophils % (Manual) 3.9 D Basophils % 0.5 Basophils % (Manual) 0.0 Myelocytes % (Man) 0 Promyelocytes % (Man) 0 Blast Cells % (Manual) 0 Nucleated RBC % 0 Metamyelocytes 0 Platelet Estimate Decreased PT with INR 12.90 INR 1.09 PTT (Actin FS) 35.8 Sodium 137 Potassium 4.6 Chloride 101 Carbon Dioxide 31 Anion Gap 4 L BUN 18.4 H Creatinine 1.1 Est GFR (CKD-EPI)AfAm 70.08 Est GFR (CKD-EPI)NonAf 60.46 Random Glucose 100 Calcium 8.9 Total Bilirubin 0.6 AST 34 ALT 70 H Alkaline Phosphatase 109 Troponin I Total Protein 7.1 Albumin 4.0 08/24/19 08/24/19 14:42 18:51 WBC RBC Hgb Hct MCV MCH MCHC RDW Plt Count MPV Absolute Neuts (auto) Neutrophils % Neutrophils % (Manual) Band Neutrophils % Lymphocytes % Lymphocytes % (Manual) Monocytes % Monocytes % (Manual) Eosinophils % Eosinophils % (Manual) Basophils % Basophils % (Manual) Myelocytes % (Man) Promyelocytes % (Man) Blast Cells % (Manual) Nucleated RBC % Metamyelocytes Platelet Estimate PT with INR INR PTT (Actin FS) Sodium Potassium Chloride Carbon Dioxide Anion Gap BUN Creatinine Est GFR (CKD-EPI)AfAm Est GFR (CKD-EPI)NonAf Random Glucose Calcium Total Bilirubin AST ALT Alkaline Phosphatase Troponin I < 0.02 < 0.02 Total Protein Albumin ASSESSMENT/PLAN: 84M w/ pmhx of CAD (s/p stent 1.5 months ago at [facility]), HTN, HLD, BPH, chronic leukopenia, glaucoma presents to the ED with chest pain. #Chest pain r/o ACS -Trops neg x2 -EKG showed NSR, HR 64, QTc 422, no ST-T or TWIs -Cardio consulted -Last echo done on 08/02/19; remarkable for Grade I diastolic dysfunction, EF 60- 65% -May give nitro PRN for pain -Admit to tele obs Cont home meds: Imdur 60 QD #Hx of CAD, s/p stent Cont home meds: ASA 81, Plavix 75 QD, Imdur 60 QD, Toprol XL 12.5 QD, Ranexa 500 BID #HTN/HLD; Cont home meds: Amlodipine 5 QD, Atorvastatin 80 HS, Losartan 50 QD #Hx of Glaucoma; Cont home meds: Rhopressa #Hx of BPH; Cont home med: Proscar 5 QD #Hx of Constipation; Cont home med: Simethicone #Prophylaxis; Lovenox 50 QD Dispo -admit to tele obs Visit type - Emergency Visit Emergency Visit: Yes ED Registration Date: 08/24/19 Care time: The patient presented to the Emergency Department on the above date and was hospitalized for further evaluation of their emergent condition. - New Patient This patient is new to me today: Yes Date on this admission: 08/25/19 - Critical Care Critical Care patient: No ATTENDING PHYSICIAN STATEMENT I saw and evaluated the patient. I reviewed the resident's note and discussed the case with the resident. I agree with the resident's findings and plan as documented. SUBJECTIVE: OBJECTIVE: ASSESSMENT AND PLAN:
[2019-08-24] MEDS: RANOLAZINE E.R. 500 MG TABLET (FP) PO SCH (21:03)
[2019-08-24] MEDS ORDERED: ATORVASTATIN CA 80 MG TABLET (FP) PO SCH (22:00)
[2019-08-25 06:52] LABS: BASO % 0.7 % (0-2.0); EOS % 0.9 % (0-4.5); HEMOGLOBIN 13.5 GM/dL (11.7-16.9); LYMPH % 31.7 % (8-40); MCH 29.1 pg (25.7-33.7); MCHC 33.9 g/dl (32.0-35.9); MEAN CELL VOLUME 85.7 fl (80-96); MEAN PLT VOLUME 9.1 fl (7.5-11.1); MONO % 20.2 % (3.8-10.2); NEUT % 46.5 % (42.8-82.8); PLATELET COUNT 143 K/MM3 (134-434); RBC 4.66 M/mm3 (4.00-5.60); RDW 15.5 % (11.9-15.9); WHITE BLOOD COUNT 2.2 K/mm3 (4.0-10.0)
[2019-08-25 07:20] LABS: ALBUMIN 3.7 g/dl (3.4-5.0); BILIRUBIN,TOTAL 0.8 mg/dL (0.2-1); BLOOD UREA NITROGEN 16.3 mg/dL (7-18); CALCIUM 8.7 mg/dL (8.5-10.1); MAGNESIUM 2.5 mg/dL (1.8-2.4); PHOSPHOROUS 3.1 mg/dL (2.5-4.9); POTASSIUM 3.6 mmol/L (3.5-5.1); TOT PROT 6.4 g/dl (6.4-8.2)
[2019-08-25] MEDS: RANOLAZINE E.R. 500 MG TABLET (FP) PO SCH (09:06)
[2019-08-25] MEDS ORDERED: ASPIRIN 81 MG CHEWABLE TABLETS PO SCH (10:00)
[2019-08-25] MEDS ORDERED: amLODIPine BESYLATE 5 MG TABLET (FP) PO SCH (10:00)
[2019-08-25] MEDS ORDERED: ENOXAPARIN NA (PORCINE) 40 MG/0.4 ML DISP.SYRIN SQ SCH (10:00)
[2019-08-25] MEDS ORDERED: LOSARTAN POTASSIUM 50 MG TABLET (FP) PO SCH (10:00)
[2019-08-25] MEDS ORDERED: ISOSORBIDE MONONITRATE 60 MG TAB.SR.24H (FP) PO SCH (10:00)
[2019-08-25] MEDS ORDERED: FINASTERIDE 5 MG TABLET (FP) PO SCH (10:00)
[2019-08-25] MEDS ORDERED: MULTIVITAMINS (DAILY MVI) TABLET (FP) PO SCH (10:00)
[2019-08-25] MEDS ORDERED: CLOPIDOGREL BISULFATE 75 MG TABLET (FP) PO SCH (10:00)
[2019-08-25] MEDS ORDERED: metoPROLOL SUCCINATE 25 MG TAB.SR.24H (FP) PO SCH (10:00)
[2019-08-25] MEDS ORDERED: PATIENT'S OWN MEDICATION (NON-FORMULARY) (Netarsudil Mesylate [Rhopressa] 2.5 ML) OP SCH (10:00)
[2019-08-25 12:24] LABS: ANISOCYTOSIS 1+; MACROCYTOSIS 0; PLATELET ESTIMATE NORMAL
--- NOTE | 2019-08-25 14:19 | CONSULT ---
Consult Consult Specialty:: Hematology and oncology Referred by:: Dr. Agarwal Reason for Consultation:: Leukopenia - History of Present Illness Chief Complaint: chest pain History of Present Illness: The patient is an 84 yo M w/ pmhx of CAD (s/p stent 1.5 months ago at [facility] ), HTN, HLD, BPH, chronic leukopenia, glaucoma presents to the ED with chest pain that started this morning. On admission he was found to be neutropenic to 2.2 w/ an ANC of 1,000. On interview - Past Medical History Cardio/Vascular: Yes: CAD, HTN, Hyperlipdemia - Past Surgical History Past Surgical History: Yes: Hernia Repair, Stent - Alcohol/Substance Use Hx Alcohol Use: No - Smoking History Smoking history: Never smoked Have you smoked in the past 12 months: No Aproximately how many cigarettes per day: 0 Home Medications - Allergies Allergies/Adverse Reactions: Allergies Allergy/AdvReac Type Severity Reaction Status Date / Time lactase [From Dairy Aid] Allergy Verified 08/01/19 14:17 Penicillins Allergy Verified 08/01/19 14:17 - Home Medications Home Medications: Ambulatory Orders Multivitamin [Multiple Vitamins] 1 each PO DAILY 08/10/18 Finasteride [Proscar -] 5 mg PO DAILY 06/26/19 Netarsudil Mesylate [Rhopressa] 2.5 ml OP DAILY 06/28/19 Aspirin [ASA -] 81 mg PO DAILY tab.chew 07/01/19 Amlodipine Besylate [Norvasc -] 5 mg PO DAILY #30 tablet 07/02/19 Atorvastatin Ca [Lipitor] 80 mg PO HS 08/01/19 Clopidogrel Bisulfate [Plavix] 75 mg PO DAILY 08/01/19 Losartan Potassium 50 mg PO DAILY 08/01/19 Metoprolol Succinate 12.5 mg PO DAILY 08/01/19 Isosorbide Mononitrate [Imdur -] 60 mg PO DAILY #30 tab.sr.24h 08/02/19 Ranolazine [Ranexa] 500 mg PO BID #60 tab.er.12h 08/02/19 Simethicone [Gas Relief] 80 mg PO DAILY PRN #30 tab.chew 08/02/19 Pantoprazole Sodium 40 mg PO DAILY 08/25/19 Ranitidine [Zantac -] 150 mg PO HS 08/25/19 Physical Exam Vital Signs: Vital Signs Temperature 98 F 08/25/19 06:21 Pulse Rate 73 08/25/19 06:21 Respiratory Rate 16 08/25/19 06:21 Blood Pressure 130/80 08/25/19 06:21 O2 Sat by Pulse Oximetry (%) 98 08/25/19 06:21 Labs: CBC, BMP 08/25/19 05:34 08/25/19 05:34 Assessment/Plan The patient is an 84 yo M w/ pmhx of CAD (s/p stent 1.5 months ago at [facility] ), HTN, HLD, BPH, chronic leukopenia, glaucoma presents to the ED with chest pain that started this morning. On admission he was found to be neutropenic to 2.2 w/ an ANC of 1,000. #chronic leukopenia, eitology unclear -follows with a hematology on the outside -had BM biopsy in the past, states that his reading interventionist told him "theres nothing to worry about"
--- NOTE | 2019-08-25 14:22 | CON.CARD ---
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 He denies shortness of breath or palpitations. He denies paroxysmal nocturnal dyspnea or orthopnea. He denies fever or chills. He denies nausea, vomiting, diarrhea or abdominal pain. He denies headache or lightheadedness. He also states GERD. - History Source History Provided By: Patient, Medical Record Limitations to Obtaining History: No Limitations - Past Medical History Cardio/Vascular: Yes: CAD, HTN, Hyperlipdemia Gastrointestinal: Yes: GERD - Past Surgical History Past Surgical History: Yes: Cataract Removal, Hernia Repair, Prostatectomy, Stent - Alcohol/Substance Use Hx Alcohol Use: No - Smoking History Smoking history: Never smoked Have you smoked in the past 12 months: No Aproximately how many cigarettes per day: 0 Home Medications - Allergies Allergies/Adverse Reactions: Allergies Allergy/AdvReac Type Severity Reaction Status Date / Time lactase [From Dairy Aid] Allergy Verified 08/01/19 14:17 Penicillins Allergy Verified 08/01/19 14:17 - Home Medications Home Medications: Ambulatory Orders Multivitamin [Multiple Vitamins] 1 each PO DAILY 08/10/18 Finasteride [Proscar -] 5 mg PO DAILY 06/26/19 Netarsudil Mesylate [Rhopressa] 2.5 ml OP DAILY 06/28/19 Aspirin [ASA -] 81 mg PO DAILY tab.chew 07/01/19 Amlodipine Besylate [Norvasc -] 5 mg PO DAILY #30 tablet 07/02/19 Atorvastatin Ca [Lipitor] 80 mg PO HS 08/01/19 Clopidogrel Bisulfate [Plavix] 75 mg PO DAILY 08/01/19 Losartan Potassium 50 mg PO DAILY 08/01/19 Metoprolol Succinate 12.5 mg PO DAILY 08/01/19 Isosorbide Mononitrate [Imdur -] 60 mg PO DAILY #30 tab.sr.24h 08/02/19 Ranolazine [Ranexa] 500 mg PO BID #60 tab.er.12h 08/02/19 Simethicone [Gas Relief] 80 mg PO DAILY PRN #30 tab.chew 08/02/19 Pantoprazole Sodium 40 mg PO DAILY 08/25/19 Ranitidine [Zantac -] 150 mg PO HS 08/25/19 Family Medical History Family Hx Cardiac Disorders: Mother (HTN) Review of Systems - Review of Systems Constitutional: denies: Chills, Fever Cardiovascular: reports: Chest Pain. denies: Palpitations, Shortness of Breath Respiratory: denies: Cough, Hemoptysis, Orthopnea, PND, SOB, SOB on Exertion Gastrointestinal: denies: Abdominal Pain, Constipation, Diarrhea, Melena, Nausea , Rectal Bleeding, Vomiting Genitourinary: denies: Dysuria, Hematuria Musculoskeletal: denies: Back Pain, Joint Pain Neurological: denies: Dizziness, Headache, Seizure, Syncope Vital Signs: Vital Signs Temperature 98 F 08/25/19 06:21 Pulse Rate 73 08/25/19 06:21 Respiratory Rate 16 08/25/19 06:21 Blood Pressure 130/80 08/25/19 06:21 O2 Sat by Pulse Oximetry (%) 98 08/25/19 06:21 Eyes: Yes: PERRL HENT: Yes: Atraumatic Neck: Yes: Supple Respiratory: Yes: CTA Bilaterally Gastrointestinal: Yes: Normal Bowel Sounds, Soft. No: Tenderness Cardiovascular: Yes: Regular Rate and Rhythm JVD: No PMI: Non-Displaced Heart Sounds: Yes: S1, S2. No: Gallop Murmur: No: Systolic Murmur Edema: No - Other Data Labs, Other Data: CBC, BMP 08/25/19 05:34 08/25/19 05:34 INR, PTT INR 1.09 (0.83-1.09) 08/24/19 14:42 Troponin, BNP 08/24/19 08/24/19 08/25/19 14:42 18:51 10:06 Troponin I < 0.02 < 0.02 < 0.02 Normal sinus rhythm, LVH Imaging - Results Chest X-ray: Report Reviewed (Unremarkable) EKG: Report Reviewed Problem List - Problems (1) HTN (hypertension) Code(s): I10 - ESSENTIAL (PRIMARY) HYPERTENSION Qualifiers: Hypertension type: essential hypertension Qualified Code(s): I10 - Essential (primary) hypertension (2) Hypercholesterolemia Code(s): E78.00 - PURE HYPERCHOLESTEROLEMIA, UNSPECIFIED (3) CAD (coronary artery disease) Code(s): I25.10 - ATHSCL HEART DISEASE OF [place] CORONARY ARTERY W/O ANG PCTRS Qualifiers: Coronary Disease-Associated Artery/Lesion type: [place] artery [place] vs. transplanted heart: [place] heart Associated angina: with stable angina Qualified Code(s): I25.118 - Atherosclerotic heart disease of [place] coronary artery with other forms of angina pectoris (4) H/O heart artery stent Code(s): Z95.5 - PRESENCE OF CORONARY ANGIOPLASTY IMPLANT AND GRAFT (5) Chest pain Code(s): R07.9 - CHEST PAIN, UNSPECIFIED Qualifiers: Chest pain type: unspecified Qualified Code(s): R07.9 - Chest pain, unspecified Assessment/Plan 1. CAD s/p PCI/stent, angina pectoris 2. HTN 3. Hypercholesterolemia 4. Osteoarthritis 5. History of glaucoma PLAN: 1. ASA and Plavix 2. Continue Imdur 60 mg QD and Ranexa 500 mg BID 3. Continue Metoprolol ER 12.5 mg QD, Amlodipine 5 mg QD and Losartan 50 mg QD 4. Continue statin therapy 5. Patient may be discharged home as he has 3 negative troponins and to follow up in my office within 2 weeks Discussed with Hospitalist service Kp Garnett MD
[2019-08-25 15:34] VITALS: BP 133/56; PULSE 88; TEMP 98.1; BMI 20.9
--- NOTE | 2019-08-25 16:12 | DS ---
Physical Exam: SUBJECTIVE: Patient seen and examined. No acute events overnight. OBJECTIVE: Vital Signs Period Temp Pulse Resp BP Sys/Werner Pulse Ox Last 24 Hr 98 F-98.1 F 73-88 16-18 114-150/56-85 98-100 PHYSICAL EXAM GENERAL: The patient is awake, alert, and fully oriented, in no acute distress. HEAD: Normal with no signs of trauma. EYES: PERRL, extraocular movements intact, sclera anicteric, conjunctiva clear. ENT: Ears normal, nares patent, oropharynx clear without exudates, moist mucous membranes. NECK: Trachea midline, full range of motion, supple. LUNGS: Breath sounds equal, clear to auscultation bilaterally, no wheezes, no crackles, no accessory muscle use. HEART: Regular rate and rhythm, S1, S2 without murmur, rub or gallop. Reproducible mid-sternal chest pain on palpation. ABDOMEN: Soft, nontender, nondistended, normoactive bowel sounds, no guarding, no rebound, no hepatosplenomegaly, no masses. EXTREMITIES: 2+ pulses, warm, well-perfused, no edema. NEUROLOGICAL: Cranial nerves II through XII grossly intact. Normal speech, gait not observed. PSYCH: Normal mood, normal affect. SKIN: Warm, dry, normal turgor, no rashes or lesions noted. Laboratory Results - last 24 hr CBC, BMP 08/25/19 05:34 08/25/19 05:34 HOSPITAL COURSE: Date of Admission:08/24/19 84M w/ pmhx of CAD (s/p stent 1.5 months ago at [facility]), HTN, HLD, BPH, chronic leukopenia, glaucoma presents to the ED with chest pain. A workup to r/ o ACS was done. EKG showed NSR with no ST elevations or ischemic changes. Serial troponins were negative. CXR did not show any acute pathology. Pt was treated with nitro prn for pain. Symptoms resolved and he is clinically stable for discharge. Date of Discharge: 08/25/19 Minutes to complete discharge: 45 Discharge Summary Problems reviewed: Yes Reason For Visit: CHEST PAIN Condition: Good - Instructions Diet, Activity, Other Instructions: You were admitted to the hospital for chest pain. We did several tests and imaging, which did not show any signs of active disease. You were evaluated by the dimpling machine operator and recommended to continue your medications and to follow up with him as outpatient. Please continue all your home medications. Please follow up with your primary care doctor within 1 week. Please follow up with the dimpling machine operator (Dr. Garnett) within 2 weeks. Please follow up with your oncologist in 1-2 weeks. Return to the emergency department if you experience any chest pain, difficulty breathing, or any additional symptoms. Referrals: Kp Garnett MD [Staff Physician] - 2 Weeks Juan C Thrasher MD [Primary Care Provider] - Disposition: HOME - Home Medications Comprehensive Discharge Medication List: Ambulatory Orders Multivitamin [Multiple Vitamins] 1 each PO DAILY 08/10/18 Finasteride [Proscar -] 5 mg PO DAILY 06/26/19 Netarsudil Mesylate [Rhopressa] 2.5 ml OP DAILY 06/28/19 Aspirin [ASA -] 81 mg PO DAILY tab.chew 07/01/19 Amlodipine Besylate [Norvasc -] 5 mg PO DAILY #30 tablet 07/02/19 Atorvastatin Ca [Lipitor] 80 mg PO HS 08/01/19 Clopidogrel Bisulfate [Plavix] 75 mg PO DAILY 08/01/19 Losartan Potassium 50 mg PO DAILY 08/01/19 Metoprolol Succinate 12.5 mg PO DAILY 08/01/19 Isosorbide Mononitrate [Imdur -] 60 mg PO DAILY #30 tab.sr.24h 08/02/19 Ranolazine [Ranexa] 500 mg PO BID #60 tab.er.12h 08/02/19 Simethicone [Gas Relief] 80 mg PO DAILY PRN #30 tab.chew 08/02/19 Pantoprazole Sodium 40 mg PO DAILY 08/25/19 Ranitidine [Zantac -] 150 mg PO HS 08/25/19 This patient is new to me today: Yes Date on this admission: 08/25/19 Emergency Visit: Yes ED Registration Date: 08/24/19 Care time: The patient presented to the Emergency Department on the above date and was hospitalized for further evaluation of their emergent condition. Critical Care patient: No - Discharge Referral Referred to [facility] Med P.C.: No ATTENDING PHYSICIAN STATEMENT I saw and evaluated the patient. I reviewed the resident's note and discussed the case with the resident. I agree with the resident's findings and plan as documented. SUBJECTIVE: OBJECTIVE: ASSESSMENT AND PLAN:
--- NOTE | 2019-08-25 19:09 | PN ---
Teaching Attending Note Name of Resident: Charissa Arndt ATTENDING PHYSICIAN STATEMENT I saw and evaluated the patient. I reviewed the resident's note and discussed the case with the resident. I agree with the resident's findings and plan as documented. SUBJECTIVE: Chest pain resolved. No palpitations/SOB. No sweating/ lightheadedness OBJECTIVE: Afebrile, Hemodynamically Stable. Last Vital Signs Temp Pulse Resp BP Pulse Ox 98.1 F 88 18 133/56 L 98 08/25/19 15:28 08/25/19 15:28 08/25/19 15:28 08/25/19 15:28 08/25/19 06:21 HEENT - Atraumatic, Normocephalic. Heart - S1, S2, RRR Lungs - clear to auscultation Abdomen - soft, non-tender. Bowel Sounds normal. Extremities - no edema, no calf tenderness. Laboratory Results - last 24 hr 08/24/19 08/25/19 08/25/19 18:51 05:34 05:34 WBC 2.2 L RBC 4.66 Hgb 13.5 Hct 40.0 MCV 85.7 MCH 29.1 MCHC 33.9 RDW 15.5 Plt Count 143 MPV 9.1 Absolute Neuts (auto) 1.0 L Neutrophils % 46.5 Neutrophils % (Manual) 45.5 D Band Neutrophils % 3.0 Lymphocytes % 31.7 Lymphocytes % (Manual) 34.6 Monocytes % 20.2 H Monocytes % (Manual) 12 H Eosinophils % 0.9 Eosinophils % (Manual) 2.0 Basophils % 0.7 Basophils % (Manual) 0.0 Myelocytes % (Man) 0 Promyelocytes % (Man) 0 Blast Cells % (Manual) 0 Nucleated RBC % 0 Metamyelocytes 0 Hypochromia 0 Platelet Estimate Normal Polychromasia 0 Poikilocytosis 1+ Anisocytosis 1+ Microcytosis 1+ Macrocytosis 0 Acanthocytes (Spur) 1+ Sodium 140 Potassium 3.6 Chloride 105 Carbon Dioxide 30 Anion Gap 6 L BUN 16.3 Creatinine 1.0 Est GFR (CKD-EPI)AfAm 78.64 Est GFR (CKD-EPI)NonAf 67.85 Random Glucose 84 Calcium 8.7 Phosphorus 3.1 Magnesium 2.5 H Total Bilirubin 0.8 AST 35 ALT 66 H Alkaline Phosphatase 97 Creatine Kinase Troponin I < 0.02 Total Protein 6.4 Albumin 3.7 08/25/19 10:06 WBC RBC Hgb Hct MCV MCH MCHC RDW Plt Count MPV Absolute Neuts (auto) Neutrophils % Neutrophils % (Manual) Band Neutrophils % Lymphocytes % Lymphocytes % (Manual) Monocytes % Monocytes % (Manual) Eosinophils % Eosinophils % (Manual) Basophils % Basophils % (Manual) Myelocytes % (Man) Promyelocytes % (Man) Blast Cells % (Manual) Nucleated RBC % Metamyelocytes Hypochromia Platelet Estimate Polychromasia Poikilocytosis Anisocytosis Microcytosis Macrocytosis Acanthocytes (Spur) Sodium Potassium Chloride Carbon Dioxide Anion Gap BUN Creatinine Est GFR (CKD-EPI)AfAm Est GFR (CKD-EPI)NonAf Random Glucose Calcium Phosphorus Magnesium Total Bilirubin AST ALT Alkaline Phosphatase Creatine Kinase 118 Troponin I < 0.02 Total Protein Albumin Discharge Medications Medication Instructions Recorded Multivitamin [Multiple Vitamins] 1 each PO DAILY 08/10/18 Finasteride [Proscar -] 5 mg PO DAILY 06/26/19 Netarsudil Mesylate [Rhopressa] 2.5 ml OP DAILY 06/28/19 Aspirin [ASA -] 81 mg PO DAILY tab.chew 07/01/19 Amlodipine Besylate [Norvasc -] 5 mg PO DAILY #30 tablet 07/02/19 Atorvastatin Ca [Lipitor] 80 mg PO HS 08/01/19 Clopidogrel Bisulfate [Plavix] 75 mg PO DAILY 08/01/19 Losartan Potassium 50 mg PO DAILY 08/01/19 Metoprolol Succinate 12.5 mg PO DAILY 08/01/19 Isosorbide Mononitrate [Imdur -] 60 mg PO DAILY #30 tab.sr.24h 08/02/19 Ranolazine [Ranexa] 500 mg PO BID #60 tab.er.12h 08/02/19 Simethicone [Gas Relief] 80 mg PO DAILY PRN #30 tab.chew 08/02/19 Pantoprazole Sodium 40 mg PO DAILY 08/25/19 Ranitidine [Zantac -] 150 mg PO HS 08/25/19 ASSESSMENT AND PLAN: 84 year old male with history of CAD (s/p stent 6 weeks ago at [facility]), HTN , HLD, BPH, chronic leukopenia, Glaucoma presents to the ED with recurrent chest pain. 1. Recurrent CP with Hx of CAD (s/p PCI/Stent) Troponin neg x 3. ECG - NSR, no ST/T wave evaluation Echo - Grade I diastolic dysfunction, EF 60-65% Nitro PRN Cardio consulted - recommend no need for further Ix. Continue Aspirin, Plavix, Imdur, Toprol XL, Ranexa, Statin. Cardio out-patient follow up. 2. HTN - Continue Imdur, Amlodipine, Toprol, Losartan. 3. HLD - Continue Lipitor. 4. BPH -Continue Proscar 5. Chronic Leukopenia/Neutropenia for several years (last documented in 2011) - no signs of infection/sepsis. Hematology consulted - will follow as out- patient.
== END 2019-08-25 18:09 | disposition home or self-care (01) ==
LOC: JER 14:03 → JERBED 16:18 → J4W 08-25 15:40
DX: R07.89 Other chest pain (principal); I10 Essential (primary) hypertension; E78.5 Hyperlipidemia, unspecified; I25.10 Atherosclerotic heart disease of native coronary artery without angina pectoris; N40.0 Benign prostatic hyperplasia without lower urinary tract symptoms; H40.9 Unspecified glaucoma; D72.819 Decreased white blood cell count, unspecified; K21.9 Gastro-esophageal reflux disease without esophagitis; M19.90 Unspecified osteoarthritis, unspecified site; Z95.5 Presence of coronary angioplasty implant and graft; Z88.0 Allergy status to penicillin; Z91.011 Allergy to milk products; Z79.82 Long term (current) use of aspirin
CPT/HCPCS: 36415; 71045-TC-FY; 80053; 82550; 83735; 84100; 84484; 85025; 85610; 85730; 93005; 93010; 99285-25; G0378

== ENCOUNTER 2019-10-26 15:31 | Observation (INO) | payer OTHER ==
[2019-10-26 15:35] VITALS: BMI 19.9
--- NOTE | 2019-10-26 15:35 | PDOC ---
Rapid Medical Evaluation Medical Evaluation: Allergies Allergy/AdvReac Type Severity Reaction Status Date / Time lactase [From Dairy Aid] Allergy Verified 08/01/19 14:17 Penicillins Allergy Verified 08/01/19 14:17 I have performed a brief in-person evaluation of this patient. The patient presents with a chief complaint of: was straining while using restroom and developing chest discomfort (occurred around 10 AM today); currently with no chest pain; has hx of CAD s/p PCI Pertinent physical exam findings: In NAD I have ordered the following: EKG, labs, CXR The patient will proceed to the ED for further evaluation. 10/26/19 15:34
[2019-10-26 15:56] LABS: BASO % 0.5 % (0-2.0); EOS % 1.6 % (0-4.5); HEMATOCRIT 34.2 % (35.4-49); HEMOGLOBIN 11.6 GM/dL (11.7-16.9); LYMPH % 30.3 % (8-40); MCHC 33.8 g/dl (32.0-35.9); MEAN CELL VOLUME 88.6 fl (80-96); MEAN PLT VOLUME 8.5 fl (7.5-11.1); MONO % 18.4 % (3.8-10.2); NEUT % 49.2 % (42.8-82.8); PLATELET COUNT 176 K/MM3 (134-434); RBC 3.86 M/mm3 (4.00-5.60); RDW 17.2 % (11.9-15.9); WHITE BLOOD COUNT 2.8 K/mm3 (4.0-10.0)
[2019-10-26 16:38] LABS: ALBUMIN 3.7 g/dl (3.4-5.0); ALK PHOS 96 U/L (45-117); ANION GAP 3 MMOL/L (8-16); BILIRUBIN,TOTAL 0.6 mg/dL (0.2-1); BLOOD UREA NITROGEN 24.9 mg/dL (7-18); CALCIUM 8.4 mg/dL (8.5-10.1); CHLORIDE 105 mmol/L (98-107); CO2 32 mmol/L (21-32); CREATININE 1.6 mg/dL (0.55-1.3); GLUCOSE,RANDOM 106 mg/dL (74-106); POTASSIUM 4.4 mmol/L (3.5-5.1); SGOT/AST 24 U/L (15-37); SGPT/ALT 48 U/L (13-61); SODIUM 140 mmol/L (136-145); TOT PROT 6.3 g/dl (6.4-8.2)
[2019-10-26] MEDS ORDERED: ACETAMINOPHEN 1000 MG/100 ML VIAL (NON FORMULARY) IVPB ONE (16:51)
[2019-10-26] MEDS ORDERED: ASPIRIN 81 MG CHEWABLE TABLETS PO ONE (16:51)
[2019-10-26] MEDS ORDERED: NITROGLYCERIN SUBLINGUAL 1/200 0.3 MG BTL SL ONE (16:51)
--- NOTE | 2019-10-26 16:57 | PDOC ---
Attending Attestation - Resident Resident Name: Fran Ramirez - ED Attending Attestation I have performed the following: I have examined & evaluated the patient, The case was reviewed & discussed with the resident, I agree w/resident's findings & plan, Exceptions are as noted - HPI HPI: 10/26/19 16:55 84-year-old male developed chest pain at 10 AM today and has a history of coronary artery disease and stents - Physicial Exam PE: 10/26/19 16:56 Well-nourished well-developed alert 84-year-old male with chest pain Head normocephalic atraumatic Neck no JVD Lungs clear to auscultation bilaterally CVS regular rate and rhythm S1-S2 Abdomen no rebound, no guarding Skin warm and dry Extremities no deformities Neuro alert and oriented moving all extremities purposefully - Medical Decision Making 10/26/19 17:16 In June patient had a syncopal episode and it was revealed that he had a myocardial infarction and required cardiac stents today's first troponin is negative Plan admit telemetry OBS
--- NOTE | 2019-10-26 17:06 | PDOC ---
History of Present Illness - General Chief Complaint: Chest Pain Stated Complaint: CHEST PAIN Time Seen by Provider: 10/26/19 15:34 - History of Present Illness Initial Comments: 10/27/19 10:14 84M PMH CAD s/p stent (06/2019, [facility]), HLD c/o constant sharp left sided chest pain that occurred after straining on the toilet today at 10am. Pt initially felt a fast heart rate, which resolved, and then had the chest pain. Endorses occasional radiation down left arm. Endorse mild sob. Denies f/c, n/v, abd pain. Denies headache, lightheadedness, dizziness. Currently experiencing the chest pain, 06/12. Took ASA 81 today. PCP - Dr. Thrasher Cardiology - Dr. Garnett / Caryl PCN Allergy Denies tobacco, etoh, drugs No cardiac FHx Past History - Past Medical History Allergies/Adverse Reactions: Allergies Allergy/AdvReac Type Severity Reaction Status Date / Time lactase [From Dairy Aid] Allergy Verified 10/26/19 15:35 Penicillins Allergy Verified 10/26/19 15:35 nitroglycerin AdvReac Intermediate Verified 10/26/19 20:45 Home Medications: Ambulatory Orders Multivitamin [Multiple Vitamins] 1 each PO DAILY 08/10/18 Finasteride [Proscar -] 5 mg PO DAILY 06/26/19 Netarsudil Mesylate [Rhopressa] 2.5 ml OP DAILY 06/28/19 Aspirin [ASA -] 81 mg PO DAILY tab.chew 07/01/19 Amlodipine Besylate [Norvasc -] 5 mg PO DAILY #30 tablet 07/02/19 Atorvastatin Ca [Lipitor] 80 mg PO HS 08/01/19 Clopidogrel Bisulfate [Plavix] 75 mg PO DAILY 08/01/19 Losartan Potassium 50 mg PO DAILY 08/01/19 Metoprolol Succinate 12.5 mg PO DAILY 08/01/19 Isosorbide Mononitrate [Imdur -] 60 mg PO DAILY #30 tab.sr.24h 08/02/19 Ranolazine [Ranexa] 500 mg PO BID #60 tab.er.12h 08/02/19 Simethicone [Gas Relief] 80 mg PO DAILY PRN #30 tab.chew 08/02/19 Pantoprazole Sodium 40 mg PO DAILY 08/25/19 Ranitidine [Zantac -] 150 mg PO HS 08/25/19 Anemia: No Asthma: No Cancer: No Cardiac Disorders: Yes (CAD s/p stent) CVA: No COPD: No CHF: No Dementia: No Diabetes: Yes GI Disorders: No Disorders: Yes (BPH) HTN: Yes Hypercholesterolemia: Yes Liver Disease: No Seizures: No Thyroid Disease: No - Surgical History Abdominal Surgery: Yes (right inguinal hernia repair) Cardiac Surgery: Yes (stent placement) Lung Surgery: No Neurologic Surgery: No - Immunization History Immunization Up to Date: Yes - Psycho Social/Smoking Cessation Hx Smoking Status: No Smoking History: Never smoked Have you smoked in the past 12 months: No Number of Cigarettes Smoked Daily: 0 Hx Alcohol Use: No Drug/Substance Use Hx: No Substance Use Type: None Hx Substance Use Treatment: No Review of Systems - Review of Systems Comments:: 10/27/19 10:14 CONSTITUTIONAL: Denies F / C HEENT: Denies headache, lightheadedness, dizziness, sore throat, rhinorrhea RESP: Denies SOB, cough CARD: Endorses chest pain, rapid heart rate (resolved) GI: Denies N / V / D, abdominal pain, inability to tolerate PO : Denies dysuria, hematuria, frequency SKIN: Denies rashes NEURO: Denies numbness, tingling, weakness *Physical Exam - Vital Signs Last Vital Signs Temp Pulse Resp BP Pulse Ox 98.1 F 73 18 153/51 L 99 10/26/19 15:32 10/26/19 15:32 10/26/19 15:32 10/26/19 15:32 10/26/19 15:32 - Physical Exam 10/27/19 10:15 GEN: Well appearing, NAD, comfortable. AAOx3 HEENT: NC/AT, EOMI, PERRLA. No facial asymmetry. Normal voice. Supple neck w/ FROM. CV: S1/S2, RRR, +murmur LUNG: CTAB, no wheezes, crackles, rales, rhonchi. GI: soft, ndnt, +BS, no guarding, no rebound. EXTREMITIES: 1+ LE edema. No obvious deformities of all extremities. SKIN: warm, dry, normal turgor PSYCH: normal mood and affect, pleasant NEURO: Moving all extremities well. Heart Score/ECG Review - History History: Slightly suspicious - Electrocardiogram EKG: Normal - Age Age: >/= 65 - Risk Factors Risk Factors Heart Score: Yes Hx Hypercholesterolemia, Yes Hx Hypertension Based on the list above the patient has:: 1-2 risk factors - Troponin Troponin: </= normal limit - Score Heart Score - Total: 3 ED Treatment Course - LABORATORY CBC & Chemistry Diagram: 10/27/19 06:00 10/27/19 06:00 - ADDITIONAL ORDERS Additional order review: Laboratory Results 10/26/19 15:40 Sodium 140 Potassium 4.4 Chloride 105 Carbon Dioxide 32 Anion Gap 3 L BUN 24.9 H Creatinine 1.6 H Est GFR (CKD-EPI)AfAm 44.55 Est GFR (CKD-EPI)NonAf 38.44 Random Glucose 106 Calcium 8.4 L Total Bilirubin 0.6 AST 24 ALT 48 Alkaline Phosphatase 96 Troponin I < 0.02 Total Protein 6.3 L Albumin 3.7 10/26/19 15:40 RBC 3.86 L MCV 88.6 MCHC 33.8 RDW 17.2 H MPV 8.5 Neutrophils % 49.2 Lymphocytes % 30.3 Monocytes % 18.4 H Eosinophils % 1.6 Basophils % 0.5 Medical Decision Making - Medical Decision Making 10/26/19 16:47 84M CAD s/p stent (06/2019) c/o chest pain after straining on toilet DDx - r/o ACS - CBC, CMP, Cardiac - EKG - CXR - ASA, Nitro, tylenol - Admit tele-obs EKG 10/26/19 HR 69 FL 184 QRS 82 QTc 417 NSR Normal [place] 10/26/19 17:07 Trop neg x1 HEART 3 10/26/19 19:00 Endorsed to medicine team // Admitted tele-obs Discharge - Discharge Information Problems reviewed: Yes Clinical Impression/Diagnosis: Chest pain Qualifiers: Chest pain type: unspecified Qualified Code(s): R07.9 - Chest pain, unspecified Condition: Stable - Admission Yes - Follow up/Referral - Patient Discharge Instructions - Post Discharge Activity
[2019-10-26] MEDS ORDERED: ASPIRIN 81 MG CHEWABLE TABLETS ONE (17:10)
[2019-10-26] MEDS ORDERED: NITROGLYCERIN SUBLINGUAL 1/150 0.4 MG TAB SL ONE (17:11)
[2019-10-26] MEDS ORDERED: NITROGLYCERIN SUBLINGUAL 1/150 0.4 MG TAB ONE (17:11)
[2019-10-26] MEDS ORDERED: ACETAMINOPHEN INJECTION 100 ML IVPB ONE (17:11)
[2019-10-26] MEDS ORDERED: SODIUM CHLORIDE 0.9% 500 ML INFUS.BAG IV ONE (17:17)
--- NOTE | 2019-10-26 19:39 | PN ---
Teaching Attending Note Name of Resident: Melba Gaston ATTENDING PHYSICIAN STATEMENT I saw and evaluated the patient. I reviewed the resident's note and discussed the case with the resident. I agree with the resident's findings and plan as documented. SUBJECTIVE: Patient is an 84 year old man with a PMH of HTN, Penicillin allergy, Diastolic CHF, Left breast lump, Syncope, Chronic leukopenia, NM (s/p stent 06/2019, Nathaniel ) and HLD presenting with complaint of constant sharp left sided chest pain that occurred after straining on the toilet today at 10 am. Patient initially felt a fast heart rate, which resolved, and then had the chest pain. Pain occasionally radiated down left arm and also had mild SOB. Denies fever, chills , nausea, vomiting, abdominal pain, headache, lightheadedness or dizziness. Was experiencing the chest pain on arrival in the ER and got ASA 81 mg. No recent travel or sick contacts. Denies alcohol, tobacco or illicit drug use. OBJECTIVE: Alert Vital Signs Period Temp Pulse Resp BP Sys/Werner Pulse Ox Last 24 Hr 98.1 F 64-73 18-20 132-153/51-58 97-99 HEENT: No Jaundice, eye redness or discharge, PERRLA, EOMI. Normocephalic, atraumatic. External ears are normal and hearing is grossly intact. No nasal discharge. Neck: Supple, nontender. No palpable adenopathy or thyromegaly. No JVD Chest: Good effort. Clear to auscultation and percussion. Heart: Regular. No S3, rub or murmur Abdomen: Not distended, soft, nontender and no HSM. No rebound or guarding. Normal bowel sounds. Ext: Peripheral pulses intact. No leg edema. Skin: Warm and dry. No petechiae, rash or ecchymosis. Neuro: Alert. Oriented x3. CN 2-12 grossly intact. Sensation grossly intact in all four extremities and DTR are symmetric. Psych: Appropriate mood and affect. Good insight. Home Medications Medication Instructions Recorded Multivitamin [Multiple Vitamins] 1 each PO DAILY 08/10/18 Finasteride [Proscar -] 5 mg PO DAILY 06/26/19 Netarsudil Mesylate [Rhopressa] 2.5 ml OP DAILY 06/28/19 Aspirin [ASA -] 81 mg PO DAILY tab.chew 07/01/19 Amlodipine Besylate [Norvasc -] 5 mg PO DAILY #30 tablet 07/02/19 Atorvastatin Ca [Lipitor] 80 mg PO HS 08/01/19 Clopidogrel Bisulfate [Plavix] 75 mg PO DAILY 08/01/19 Losartan Potassium 50 mg PO DAILY 08/01/19 Metoprolol Succinate 12.5 mg PO DAILY 08/01/19 Isosorbide Mononitrate [Imdur -] 60 mg PO DAILY #30 tab.sr.24h 08/02/19 Ranolazine [Ranexa] 500 mg PO BID #60 tab.er.12h 08/02/19 Simethicone [Gas Relief] 80 mg PO DAILY PRN #30 tab.chew 08/02/19 Pantoprazole Sodium 40 mg PO DAILY 08/25/19 Ranitidine [Zantac -] 150 mg PO HS 08/25/19 Abnormal Lab Results 10/26/19 10/26/19 15:40 15:40 WBC 2.8 L RBC 3.86 L Hgb 11.6 L Hct 34.2 L RDW 17.2 H Absolute Neuts (auto) 1.4 L Monocytes % 18.4 H Anion Gap 3 L BUN 24.9 H Creatinine 1.6 H Calcium 8.4 L Total Protein 6.3 L ASSESSMENT AND PLAN: 1. Chest pain - Has risk factors for ACS. EKG shows NSR with no significant ST- T wave changes and initial troponin is negative. Patient refusing SL nitroglycerin. Will admit to telemetry, rule out ACS, treat pain with morphine IV and get ECHO. Consult cardiology. Treat constipation with fleet enema and Miralax. No acute abnormality on CXR. Will continue comprehensive care for all of patients comorbid conditions. Has had a bone marrow biopsy as part of investigation of chronic leukopenia. Persistent low anion gap may be a clue as to underlying hematologic disorder. 2. CKD? - Cause unclear. Has risk factors for CKD. Get urinalysis, CPK, PTH, phosphate and kidney sonogram. Encourage liberal oral fluid intake to correct any superimposed dehydration. Consult nephrology and avoid nephrotoxic agents such as NSAIDS, aminoglycosides, contrast dyes and certain Alternative medicine products. 3. Anemia - Likely partly due to renal failure. Will do basic anemia work up including serial stool guaiacs, reticulocyte count and iron studies. 4. Hypertension - Restart suitable outpatient antihypertensive drugs when clinically appropriate. Revise regimen to ensure [id number] excellent BP control and counseling department chair patient on the injurious effects of uncontrolled hypertension. Nonpharmacologic measures to control hypertension like weight loss , salt restriction and exercise discussed. Importance of adherence to treatment regimen and attainment of normotension emphasized. 5. DVT prophylaxis - Heparin 5000u sq tid. 6. Advance directives - Full code
[2019-10-26 19:46] LABS: MAGNESIUM 2.6 mg/dL (1.8-2.4); N-TERMINAL BNP 240.8 pg/ml (5-450); PHOSPHOROUS 3.8 mg/dL (2.5-4.9)
[2019-10-26] MEDS ORDERED: SODIUM PHOSPHATE/NA BIPHOS 133 ML ENEMA PR ONE (20:47)
[2019-10-26] MEDS ORDERED: MORPHINE SULFATE 2 MG/ML VIAL IM ONE (20:47)
--- NOTE | 2019-10-26 20:49 | HP ---
CHIEF COMPLAINT: PCP: HISTORY OF PRESENT ILLNESS: 84 yo M PMH CAD (s/p stent 06/2019), HLD, HFpEF, Carotid stenosis presents to ED today with throbbing left sided chest pain. Pt states that the symptoms began this morning around 10 am when he was straining for a BM. Pt states the pain is localized on left chest and doesnt believe it is radiating. he states that at the moment the pain is a 6/10 but this morning it was a 9/10. pt states that he typically gets this pain when he exerts himself although it usually improves faster. At the time when this event began he endorsed palpitations. he states he also had a headache this morning. he states that he is usually constipitated and hasnt had a BM in 2 days. that occurred after straining on the toilet today at 10am. Endorse mild sob. Denies f/c, n/v, abd pain. 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 Took ASA 81 today. ER course was notable for: (1) trop negative (2)EKG, no ST changes (3) Asa 162 Recent Travel: denies PAST MEDICAL HISTORY: CAD (s/p stent 06/2019), HLD, HFpEF, Carotid stenosis PAST SURGICAL HISTORY: stent 06/2019m TURP Social History: Smoking:denies Alcohol:denies Drugs: denies Allergies lactase [From Dairy Aid] Allergy (Verified 10/26/19 15:35) Penicillins Allergy (Verified 10/26/19 15:35) nitroglycerin Adverse Reaction (Intermediate, Verified 10/26/19 20:45) DIZZINESS HOME MEDICATIONS: Home Medications Medication Instructions Recorded Multivitamin [Multiple Vitamins] 1 each PO DAILY 08/10/18 Finasteride [Proscar -] 5 mg PO DAILY 06/26/19 Netarsudil Mesylate [Rhopressa] 2.5 ml OP DAILY 06/28/19 Aspirin [ASA -] 81 mg PO DAILY tab.chew 07/01/19 Amlodipine Besylate [Norvasc -] 5 mg PO DAILY #30 tablet 07/02/19 Atorvastatin Ca [Lipitor] 80 mg PO HS 08/01/19 Clopidogrel Bisulfate [Plavix] 75 mg PO DAILY 08/01/19 Losartan Potassium 50 mg PO DAILY 08/01/19 Metoprolol Succinate 12.5 mg PO DAILY 08/01/19 Isosorbide Mononitrate [Imdur -] 60 mg PO DAILY #30 tab.sr.24h 08/02/19 Ranolazine [Ranexa] 500 mg PO BID #60 tab.er.12h 08/02/19 Simethicone [Gas Relief] 80 mg PO DAILY PRN #30 tab.chew 08/02/19 Pantoprazole Sodium 40 mg PO DAILY 08/25/19 Ranitidine [Zantac -] 150 mg PO HS 08/25/19 REVIEW OF SYSTEMS CONSTITUTIONAL: Absent: fever, chills, diaphoresis, generalized weakness, malaise, loss of appetite, weight change HEENT: Absent: rhinorrhea, nasal congestion, throat pain, throat swelling, difficulty swallowing, mouth swelling, ear pain, eye pain, visual changes CARDIOVASCULAR: Present: chest pain, tachycardia Absent: syncope, lightheadedness, peripheral edema RESPIRATORY: Present: shortness of breath Absent: cough, dyspnea with exertion, orthopnea, wheezing, stridor, hemoptysis GASTROINTESTINAL: Present: constipation Absent: abdominal pain, abdominal distension, nausea, vomiting, diarrhea,melena , hematochezia GENITOURINARY: Absent: dysuria, frequency, urgency, hesitancy, hematuria, flank pain, genital pain MUSCULOSKELETAL: Absent: myalgia, arthralgia, joint swelling, back pain, neck pain SKIN: Absent: rash, itching, pallor HEMATOLOGIC/IMMUNOLOGIC: Absent: easy bleeding, easy bruising, lymphadenopathy, frequent infections ENDOCRINE: Absent: unexplained weight gain, unexplained weight loss, heat intolerance, cold intolerance NEUROLOGIC: Absent: headache, focal weakness or paresthesias, dizziness, unsteady gait, seizure, mental status changes, bladder or bowel incontinence PHYSICAL EXAMINATION Vital Signs - 24 hr 10/26/19 10/26/19 15:32 17:00 Temperature 98.1 F Pulse Rate 73 Pulse Rate [ 64 Apical] Respiratory 18 20 Rate Blood Pressure 153/51 L Blood Pressure 132/58 L [Right Arm] O2 Sat by Pulse 99 97 Oximetry (%) GENERAL: Awake, alert, and fully oriented, in no acute distress. HEAD: Normal with no signs of trauma. EYES: Pupils equal, round and reactive to light, extraocular movements intact, sclera anicteric EARS, NOSE, THROAT: nares patent, oropharynx clear without exudates. Moist mucous membranes. NECK: Normal range of motion, supple without lymphadenopathy, JVD, or masses. LUNGS: Breath sounds equal, clear to auscultation bilaterally. No wheezes, and no crackles. No accessory muscle use. HEART: Regular rate and rhythm, normal S1 and S2 without murmur, rub or gallop. tenderness to palpation over left chest wall ABDOMEN: Soft, nontender, not distended, normoactive bowel sounds, no guarding, no rebound, no masses. No hepatomegaly or splenomegaly. MUSCULOSKELETAL: Normal range of motion at all joints. No bony deformities or tenderness. No CVA tenderness. UPPER EXTREMITIES: 2+ pulses, warm, well-perfused. No cyanosis. No clubbing. No peripheral edema. LOWER EXTREMITIES: 2+ pulses, warm, well-perfused. No calf tenderness. No peripheral edema. NEUROLOGICAL: Cranial nerves II-XII intact. Normal speech. Normal gait. PSYCHIATRIC: Cooperative. Good eye contact. Appropriate mood and affect. SKIN: Warm, dry, normal turgor, no rashes or lesions noted, normal capillary refill. Laboratory Last Values WBC 2.8 K/mm3 (4.0-10.0) L 10/26/19 15:40 RBC 3.86 M/mm3 (4.00-5.60) L 10/26/19 15:40 Hgb 11.6 GM/dL (11.7-16.9) L 10/26/19 15:40 Hct 34.2 % (35.4-49) L 10/26/19 15:40 MCV 88.6 fl (80-96) 10/26/19 15:40 MCH 30.0 pg (25.7-33.7) 10/26/19 15:40 MCHC 33.8 g/dl (32.0-35.9) 10/26/19 15:40 RDW 17.2 % (11.9-15.9) H 10/26/19 15:40 Plt Count 176 K/MM3 (134-434) D 10/26/19 15:40 MPV 8.5 fl (7.5-11.1) 10/26/19 15:40 Absolute Neuts (auto) 1.4 K/mm3 (1.5-8.0) L 10/26/19 15:40 Neutrophils % 49.2 % (42.8-82.8) 10/26/19 15:40 Lymphocytes % 30.3 % (8-40) 10/26/19 15:40 Monocytes % 18.4 % (3.8-10.2) H 10/26/19 15:40 Eosinophils % 1.6 % (0-4.5) 10/26/19 15:40 Basophils % 0.5 % (0-2.0) 10/26/19 15:40 Nucleated RBC % 0 % (0-0) 10/26/19 15:40 Sodium 140 mmol/L (136-145) 10/26/19 15:40 Potassium 4.4 mmol/L (3.5-5.1) 10/26/19 15:40 Chloride 105 mmol/L (98-107) 10/26/19 15:40 Carbon Dioxide 32 mmol/L (21-32) 10/26/19 15:40 Anion Gap 3 MMOL/L (8-16) L 10/26/19 15:40 BUN 24.9 mg/dL (7-18) H 10/26/19 15:40 Creatinine 1.6 mg/dL (0.55-1.3) H 10/26/19 15:40 Est GFR (CKD-EPI)AfAm 44.55 10/26/19 15:40 Est GFR (CKD-EPI)NonAf 38.44 10/26/19 15:40 Random Glucose 106 mg/dL (74-106) 10/26/19 15:40 Calcium 8.4 mg/dL (8.5-10.1) L 10/26/19 15:40 Phosphorus 3.8 mg/dL (2.5-4.9) 10/26/19 15:40 Magnesium 2.6 mg/dL (1.8-2.4) H 10/26/19 15:40 Total Bilirubin 0.6 mg/dL (0.2-1) 10/26/19 15:40 AST 24 U/L (15-37) 10/26/19 15:40 ALT 48 U/L (13-61) 10/26/19 15:40 Alkaline Phosphatase 96 U/L (45-117) 10/26/19 15:40 Troponin I < 0.02 ng/ml (0.00-0.05) 10/26/19 15:40 B-Natriuretic Peptide 240.8 pg/ml (5-450) 10/26/19 15:40 Total Protein 6.3 g/dl (6.4-8.2) L 10/26/19 15:40 Albumin 3.7 g/dl (3.4-5.0) 10/26/19 15:40 Urine Color Yellow 10/26/19 20:40 Urine Appearance Clear 10/26/19 20:40 Urine pH 6.5 (5.0-8.0) 10/26/19 20:40 Ur Specific [place] 1.010 (1.010-1.035) 10/26/19 20:40 Urine Protein Negative (NEGATIVE) 10/26/19 20:40 Urine Glucose (UA) Negative (NEGATIVE) 10/26/19 20:40 Urine Ketones Negative (NEGATIVE) 10/26/19 20:40 Urine Blood Negative (NEGATIVE) 10/26/19 20:40 Urine Nitrite Negative (NEGATIVE) 10/26/19 20:40 Urine Bilirubin Negative (NEGATIVE) 10/26/19 20:40 Urine Urobilinogen 1.0 mg/dL (0.2-1.0) 10/26/19 20:40 Ur Leukocyte Esterase Negative (NEGATIVE) 10/26/19 20:40 ASSESSMENT/PLAN: 84 yo M PMH CAD (s/p stent 06/2019), HLD, HFpEF, Carotid stenosis presents to ED today with throbbing left sided chest pain. pt is admitted to tele obs for r/ o ACS r/o ACS; likely stable angina - EKG reviewed, NSR, no sig ST changes - trop negative - CXR reviewed, no significant acute changes - Echo from 07/2019 shows EF 60-65%, mild valvular dysfunctions - cardio recs appreciated - continue statin, asa - continue tele monitoring KYLIE vs CKD - likely 2/2 CKD - UA neg -continue to trend - encourage PO hydration Normocytic Anemia -possibly 2/2 chronic disease - pending iron panel - pending FOBT Constipation - will give enema tonight - Miralax BID starting tomorrow F/E/N - continue to monitor lytes - NPO DVT ppx : Heparin Visit type - Emergency Visit Emergency Visit: Yes ED Registration Date: 10/26/19 Care time: The patient presented to the Emergency Department on the above date and was hospitalized for further evaluation of their emergent condition. - New Patient This patient is new to me today: Yes Date on this admission: 11/08/19 - Critical Care Critical Care patient: No ATTENDING PHYSICIAN STATEMENT I saw and evaluated the patient. I reviewed the resident's note and discussed the case with the resident. I agree with the resident's findings and plan as documented. SUBJECTIVE: OBJECTIVE: ASSESSMENT AND PLAN:
[2019-10-26 20:51] LABS: PH,URINE 6.5 (5.0-8.0); URINE APPEARANCE CLEAR; URINE BILIRUBIN NEGATIVE (NEGATIVE); URINE COLOR YELLOW; URINE GLUCOSE (UA) NEGATIVE (NEGATIVE); URINE KETONE NEGATIVE (NEGATIVE); URINE LEUK ESTERASE NEGATIVE (NEGATIVE); URINE NITRITE NEGATIVE (NEGATIVE); URINE PROTEIN NEGATIVE (NEGATIVE)
[2019-10-26] MEDS: HEPARIN NA (PORCINE) 5,000 UNITS/ML 1ML VIAL SQ SCH (21:45)
[2019-10-27] MEDS: HEPARIN NA (PORCINE) 5,000 UNITS/ML 1ML VIAL SQ SCH ×3 (05:54→21:46)
[2019-10-27 07:13] LABS: INR 1.08 (0.83-1.09); PROTHROMBIN TIME (PATIENT) 12.8 SEC (9.7-13.0)
[2019-10-27 07:24] LABS: IRON SERUM 92 ug/dL (50-175); TOTAL IRON BINDING CAPACITY 217 ug/dL (250-450)
[2019-10-27 07:28] LABS: BASO % 0.4 % (0-2.0); BILIRUBIN,TOTAL 0.6 mg/dL (0.2-1); CALCIUM 8.3 mg/dL (8.5-10.1); CREATININE 1.1 mg/dL (0.55-1.3); EOS % 1.9 % (0-4.5); HEMATOCRIT 32.6 % (35.4-49); HEMOGLOBIN 10.9 GM/dL (11.7-16.9); LYMPH % 29.5 % (8-40); MAGNESIUM 2.6 mg/dL (1.8-2.4); MCH 29.7 pg (25.7-33.7); MCHC 33.3 g/dl (32.0-35.9); MEAN CELL VOLUME 89.2 fl (80-96); MEAN PLT VOLUME 8.9 fl (7.5-11.1); MONO % 17.6 % (3.8-10.2); NEUT % 50.6 % (42.8-82.8); PHOSPHOROUS 3.1 mg/dL (2.5-4.9); PLATELET COUNT 166 K/MM3 (134-434); POTASSIUM 3.8 mmol/L (3.5-5.1); RBC 3.66 M/mm3 (4.00-5.60); RDW 17.1 % (11.9-15.9); TOT PROT 5.4 g/dl (6.4-8.2); WHITE BLOOD COUNT 2.6 K/mm3 (4.0-10.0)
[2019-10-27] MEDS ORDERED: metoPROLOL SUCCINATE 25 MG TAB.SR.24H (FP) PO SCH (10:00)
[2019-10-27] MEDS ORDERED: RANOLAZINE E.R. 500 MG TABLET (FP) PO SCH (10:00)
[2019-10-27] MEDS ORDERED: ISOSORBIDE MONONITRATE 60 MG TAB.SR.24H (FP) PO SCH (10:00)
[2019-10-27] MEDS: FINASTERIDE 5 MG TABLET (FP) PO SCH (10:05)
[2019-10-27] MEDS: PANTOPRAZOLE 40 MG TABLET (FP) PO SCH (10:06)
[2019-10-27] MEDS: CLOPIDOGREL BISULFATE 75 MG TABLET (FP) PO SCH (10:06)
[2019-10-27] MEDS: ASPIRIN 81 MG CHEWABLE TABLETS PO SCH (10:06)
[2019-10-27] MEDS: POLYETHYLENE GLYCOL 3350 119 GM BTL PO SCH ×2 (10:07→21:46)
--- NOTE | 2019-10-27 11:32 | PN ---
Progress Note (short form) - Note Progress Note: Subjective: no fever ro chills. No PC or palpitations now. had palpitations and CP in retrosternal area yesterday while straiing that lasted fro many hours. he reprots exertional CP that lasts for about an hour and resolves with resting fro a ' while ". no recent change in meds. Objective: Vital Signs: Last Vital Signs Temp Pulse Resp BP Pulse Ox 97.8 F 66 20 140/79 96 10/27/19 02:00 10/27/19 05:54 10/27/19 05:56 10/27/19 05:54 10/27/19 04:45 Laboratory Results - last 24 hr 10/26/19 10/26/19 10/26/19 15:40 15:40 20:40 WBC 2.8 L RBC 3.86 L Hgb 11.6 L Hct 34.2 L MCV 88.6 MCH 30.0 MCHC 33.8 RDW 17.2 H Plt Count 176 D MPV 8.5 Absolute Neuts (auto) 1.4 L Neutrophils % 49.2 Lymphocytes % 30.3 Monocytes % 18.4 H Eosinophils % 1.6 Basophils % 0.5 Nucleated RBC % 0 PT with INR INR Sodium 140 Potassium 4.4 Chloride 105 Carbon Dioxide 32 Anion Gap 3 L BUN 24.9 H Creatinine 1.6 H Est GFR (CKD-EPI)AfAm 44.55 Est GFR (CKD-EPI)NonAf 38.44 Random Glucose 106 Calcium 8.4 L Phosphorus 3.8 Magnesium 2.6 H Iron TIBC Iron Saturation Unsaturated IBC Ferritin Total Bilirubin 0.6 AST 24 ALT 48 Alkaline Phosphatase 96 Troponin I < 0.02 B-Natriuretic Peptide 240.8 Total Protein 6.3 L Albumin 3.7 Urine Color Yellow Urine Appearance Clear Urine pH 6.5 Ur Specific [place] 1.010 Urine Protein Negative Urine Glucose (UA) Negative Urine Ketones Negative Urine Blood Negative Urine Nitrite Negative Urine Bilirubin Negative Urine Urobilinogen 1.0 Ur Leukocyte Esterase Negative 10/27/19 10/27/19 10/27/19 03:25 06:00 06:00 WBC 2.6 L RBC 3.66 L Hgb 10.9 L Hct 32.6 L MCV 89.2 MCH 29.7 MCHC 33.3 RDW 17.1 H Plt Count 166 MPV 8.9 Absolute Neuts (auto) 1.3 L Neutrophils % 50.6 Lymphocytes % 29.5 Monocytes % 17.6 H Eosinophils % 1.9 Basophils % 0.4 Nucleated RBC % 0 PT with INR 12.80 INR 1.08 Sodium Potassium Chloride Carbon Dioxide Anion Gap BUN Creatinine Est GFR (CKD-EPI)AfAm Est GFR (CKD-EPI)NonAf Random Glucose Calcium Phosphorus Magnesium Iron TIBC Iron Saturation Unsaturated IBC Ferritin Total Bilirubin AST ALT Alkaline Phosphatase Troponin I < 0.02 B-Natriuretic Peptide Total Protein Albumin Urine Color Urine Appearance Urine pH Ur Specific [place] Urine Protein Urine Glucose (UA) Urine Ketones Urine Blood Urine Nitrite Urine Bilirubin Urine Urobilinogen Ur Leukocyte Esterase 10/27/19 10/27/19 06:00 06:00 WBC RBC Hgb Hct MCV MCH MCHC RDW Plt Count MPV Absolute Neuts (auto) Neutrophils % Lymphocytes % Monocytes % Eosinophils % Basophils % Nucleated RBC % PT with INR INR Sodium 143 Potassium 3.8 Chloride 108 H Carbon Dioxide 30 Anion Gap 4 L BUN 22.0 H Creatinine 1.1 Est GFR (CKD-EPI)AfAm 70.08 Est GFR (CKD-EPI)NonAf 60.46 Random Glucose 86 Calcium 8.3 L Phosphorus 3.1 Magnesium 2.6 H Iron 92 TIBC 217 L Iron Saturation 42 H Unsaturated IBC 125 L Ferritin 200.4 Total Bilirubin 0.6 AST 18 ALT 39 Alkaline Phosphatase 86 Troponin I B-Natriuretic Peptide Total Protein 5.4 L Albumin 3.0 L Urine Color Urine Appearance Urine pH Ur Specific [place] Urine Protein Urine Glucose (UA) Urine Ketones Urine Blood Urine Nitrite Urine Bilirubin Urine Urobilinogen Ur Leukocyte Esterase Physical Exam: NAD, cooperative CV: RRR, No MRG. Lungs: CTAB Abd: soft, NT, ND, NL BS. Ext: trace edema on both legs. varicose veins on feet. DP 2+ bilaterally ASSESSMENT AND PLAN: 84 y/o man with H/o leukopenia/neutropenia, BPH, gynecomastia, HTN, L hip and shoulder arthritis , CAD s/p recent stent placement in [facility] 06/21 who presented with CP and palpitations . 1- CP with palpitations while straining: CP could be due the palpitations ? arrhythmias ) - has exertional CP. Not sure of med changes ( the list he has deutsch snot include Imdure, Ranexa, or norvasc ) - will need to confirm meds with Dr. Garnett tomorrow - EKG with TWI in AVL, but not other leads. - last echo 07/22and stress tests 06/21 were reviewed. - monitor on tele for arrhythmias now. - CArd consult pending - Not sure is repeat echo will provide extra information 2- KYLIE: nsure of etiology. Cr improved - cont po hydration - will resume losartan tomorrow if Cr remains stable 3- H/o CAD s/p stent 06/21. - cont ASa , plavix, and BB. - will confirm if he is on ranexa and imdur 4- HTN: cont BB . resume losarttan tomorrow. will confirm if he is on norvasc 5- Pancytopenia: He follows with a footwear factory worker. He says he was told he did not need BM bx. 6- H/o BPH: cont Finasteride will monitor on tele today and possible dc tomorrow pending any further Card Recs Visit type - Emergency Visit Emergency Visit: Yes ED Registration Date: 10/26/19 Care time: The patient presented to the Emergency Department on the above date and was hospitalized for further evaluation of their emergent condition. - New Patient This patient is new to me today: Yes Date on this admission: 10/27/19 - Critical Care Critical Care patient: No
--- NOTE | 2019-10-27 12:20 | CON.CARD ---
Consult Consult Specialty:: cardiology Reason for Consultation:: chest pain - History of Present Illness Chief Complaint: Pt A&Ox3; no chest pain presently. History of Present Illness: 84 black man with PMH CAD s/p stent (06/2019, Nathaniel), diastolic CHF, HLD, c/o constant sharp left sided chest pain that occurred after straining on the toilet today at 10am. Pt initially felt a fast heart rate, which resolved, and then had the chest pain. Endorses occasional radiation down left arm. Endorse mild sob. Denies f/c, n/v, abd pain. Denies headache, lightheadedness, dizziness. On ER entrance, was reportedly experiencing the chest pain, 06/12. Took ASA 81 today. PCP - Dr. Thrasher Cardiology - Dr. Garnett / Caryl PCN Allergy Denies tobacco, etoh, drugs No cardiac FHx - History Source History Provided By: Patient, Medical Record Limitations to Obtaining History: No Limitations - Past Medical History Cardio/Vascular: Yes: CAD, HTN, Hyperlipdemia Gastrointestinal: Yes: GERD - Past Surgical History Past Surgical History: Yes: Cataract Removal, Hernia Repair, Prostatectomy, Stent - Alcohol/Substance Use Hx Alcohol Use: No - Smoking History Smoking history: Never smoked Have you smoked in the past 12 months: No Aproximately how many cigarettes per day: 0 Home Medications - Allergies Allergies/Adverse Reactions: Allergies Allergy/AdvReac Type Severity Reaction Status Date / Time lactase [From Dairy Aid] Allergy Verified 10/26/19 15:35 Penicillins Allergy Verified 10/26/19 15:35 nitroglycerin AdvReac Intermediate Verified 10/26/19 20:45 - Home Medications Home Medications: Ambulatory Orders Finasteride [Proscar -] 5 mg PO DAILY 06/26/19 Aspirin [ASA -] 81 mg PO DAILY tab.chew 07/01/19 Atorvastatin Ca [Lipitor] 80 mg PO HS 08/01/19 Clopidogrel Bisulfate [Plavix] 75 mg PO DAILY 08/01/19 Losartan Potassium 50 mg PO DAILY 08/01/19 Metoprolol Succinate 25 mg PO DAILY 08/01/19 Isosorbide Mononitrate [Imdur -] 60 mg PO DAILY #30 tab.sr.24h 08/02/19 Pantoprazole Sodium 40 mg PO DAILY 08/25/19 Ranitidine [Zantac -] 150 mg PO HS 08/25/19 Netarsudil Mesylat/Latanoprost [[place] 0.02%-0.005% Eye Drp] 1 drop OU DAILY 10/27/19 Family Medical History Family History: Denies Review of Systems - Review of Systems Constitutional: reports: No Symptoms Eyes: reports: No Symptoms HENT: reports: No Symptoms Neck: reports: No Symptoms Cardiovascular: reports: Chest Pain Respiratory: reports: No Symptoms Gastrointestinal: reports: No Symptoms Genitourinary: reports: No Symptoms Breasts: reports: No Symptoms Reported Musculoskeletal: reports: No Symptoms Integumentary: reports: No Symptoms Neurological: reports: No Symptoms Endocrine: reports: No Symptoms Hematology/Lymphatic: reports: No Symptoms Psychiatric: reports: No Symptoms - Risk Factors Known Risk Factors: Yes: Age, Gender, Hypercholesterolemia, Hypertension, Race, Other (CAD -->coronary stent 06/2019) Vital Signs: Vital Signs Temperature 98.4 F 10/27/19 10:00 Pulse Rate 65 10/27/19 10:00 Respiratory Rate 22 H 10/27/19 10:00 Blood Pressure 147/88 10/27/19 10:00 O2 Sat by Pulse Oximetry (%) 96 10/27/19 04:45 Constitutional: Yes: Well Nourished, Calm Eyes: Yes: WNL HENT: Yes: WNL Neck: Yes: WNL Respiratory: Yes: WNL Gastrointestinal: Yes: WNL Renal/: No: Anuria Cardiovascular: Yes: WNL JVD: No Carotid Bruit: No PMI: Non-Displaced Heart Sounds: Yes: S1, S2 Murmur: Yes: Systolic Murmur, Grade 2 Musculoskeletal: Yes: WNL Extremities: Yes: WNL Edema: No Peripheral Pulses WNL: Yes Integumentary: Yes: WNL Neurological: Yes: WNL ...Motor Strength: WNL Psychiatric: Yes: WNL - Other Data Labs, Other Data: CBC, BMP 10/27/19 06:00 10/27/19 06:00 INR, PTT INR 1.08 (0.83-1.09) 10/27/19 06:00 Troponin, BNP 10/26/19 10/27/19 15:40 03:25 Troponin I < 0.02 < 0.02 B-Natriuretic Peptide 240.8 Troponin, BNP 10/26/19 10/27/19 15:40 03:25 Troponin I < 0.02 < 0.02 B-Natriuretic Peptide 240.8 Abnormal Lab Results 10/27/19 10/27/19 10/27/19 06:00 06:00 06:00 WBC 2.6 L RBC 3.66 L Hgb 10.9 L Hct 32.6 L RDW 17.1 H Absolute Neuts (auto) 1.3 L Monocytes % 17.6 H Chloride 108 H Anion Gap 4 L BUN 22.0 H Calcium 8.3 L Magnesium 2.6 H TIBC 217 L Iron Saturation 42 H Unsaturated IBC 125 L Total Protein 5.4 L Albumin 3.0 L Echo: Report Reviewed Prior Cardiac Procedures: Cardiac Catheterization, PTCA with Stent Ejection Fraction %: LVEF > or = 40 % Imaging - Results Chest X-ray: Image Reviewed EKG: Image Reviewed Problem List - Problems (1) Chest pain Assessment/Plan: TNI < 0.02 x 2. EKG: NSR; normal study. Stress MIBI 07/01/19 at [facility]: mod-severe ischemia inferior; 06/2019 coronary stent ?at [facility]. ECHO 07/2019: normal LVEF; abnormal diastolic compliance. F/u on telemetry. F/u prior cardiac workup. f/u ? new finding of anemia; on ASA and clopidogrel. Code(s): R07.9 - CHEST PAIN, UNSPECIFIED Qualifiers: Chest pain type: unspecified Qualified Code(s): R07.9 - Chest pain, unspecified (2) HTN (hypertension) Code(s): I10 - ESSENTIAL (PRIMARY) HYPERTENSION Qualifiers: Hypertension type: essential hypertension Qualified Code(s): I10 - Essential (primary) hypertension (3) Hypercholesterolemia Assessment/Plan: On atorvastatin 80 mg daily. Code(s): E78.00 - PURE HYPERCHOLESTEROLEMIA, UNSPECIFIED (4) CAD (coronary artery disease) Code(s): I25.10 - ATHSCL HEART DISEASE OF [place] CORONARY ARTERY W/O ANG PCTRS Qualifiers: Coronary Disease-Associated Artery/Lesion type: [place] artery [place] vs. transplanted heart: [place] heart Associated angina: with stable angina Qualified Code(s): I25.118 - Atherosclerotic heart disease of [place] coronary artery with other forms of angina pectoris (5) H/O heart artery stent Code(s): Z95.5 - PRESENCE OF CORONARY ANGIOPLASTY IMPLANT AND GRAFT (6) Diastolic CHF Code(s): I50.30 - UNSPECIFIED DIASTOLIC (CONGESTIVE) HEART FAILURE (7) Anemia Assessment/Plan: Appears to be new compared to 08/2019; f/u workup. On ASA and clopidogrel for stent 06/2019. Code(s): D64.9 - ANEMIA, UNSPECIFIED
[2019-10-27] MEDS: FAMOTIDINE 20 MG TABLET PO SCH (19:03)
[2019-10-27] MEDS ORDERED: ATORVASTATIN CA 80 MG TABLET (FP) PO SCH (22:00)
--- NOTE | 2019-10-28 05:15 | EKG ---
Test Reason : Blood Pressure : / mmHG Vent. Rate : 069 BPM Atrial Rate : 069 BPM P-R Int : 184 ms QRS Dur : 082 ms QT Int : 390 ms P-R-T Axes : 088 075 070 degrees QTc Int : 417 ms NORMAL SINUS RHYTHM NORMAL ECG WHEN COMPARED WITH ECG OF 24-AUG-2019 14:22, NO SIGNIFICANT CHANGE WAS FOUND Confirmed by DESMOND NGUYEN MD ([id number]) on 10/28/2019 5:15:37 AM Referred By: Confirmed By:DESMOND NGUYEN MD
[2019-10-28 05:39] VITALS: TEMP 98.6
[2019-10-28] MEDS: HEPARIN NA (PORCINE) 5,000 UNITS/ML 1ML VIAL SQ SCH (06:16)
[2019-10-28 08:41] LABS: HEMATOCRIT 34.8 % (35.4-49); HEMOGLOBIN 11.6 GM/dL (11.7-16.9); MCH 29.8 pg (25.7-33.7); MCHC 33.4 g/dl (32.0-35.9); MEAN CELL VOLUME 89.4 fl (80-96); MEAN PLT VOLUME 8.7 fl (7.5-11.1); PLATELET COUNT 175 K/MM3 (134-434); RBC 3.89 M/mm3 (4.00-5.60); RDW 17.5 % (11.9-15.9); WHITE BLOOD COUNT 3.9 K/mm3 (4.0-10.0)
[2019-10-28] MEDS: FINASTERIDE 5 MG TABLET (FP) PO SCH (09:40)
[2019-10-28] MEDS: FAMOTIDINE 20 MG TABLET PO SCH (09:40)
[2019-10-28] MEDS: ASPIRIN 81 MG CHEWABLE TABLETS PO SCH (09:40)
[2019-10-28] MEDS: PANTOPRAZOLE 40 MG TABLET (FP) PO SCH (09:40)
[2019-10-28] MEDS: POLYETHYLENE GLYCOL 3350 119 GM BTL PO SCH (09:40)
[2019-10-28] MEDS: CLOPIDOGREL BISULFATE 75 MG TABLET (FP) PO SCH (09:40)
[2019-10-28] MEDS ORDERED: metoPROLOL SUCCINATE 25 MG TAB.SR.24H (FP) PO SCH (10:00)
--- NOTE | 2019-10-28 10:17 | PN ---
Progress Note, Physician History of Present Illness: 84 black man with PMH CAD s/p mid RCA stent (07/2019, Nathaniel), diastolic CHF, HLD, c/o chest pain since resolved, denies STRINGER, ruled out for MA, back to baseline, last visit in office 09/10/2019. - Current Medication List Current Medications: Active Medications Aspirin (Asa -) 81 mg PO DAILY [facility] Last Admin: 10/28/19 09:40 Dose: 81 mg Atorvastatin Calcium (Lipitor -) 80 mg PO HS [facility] Last Admin: 10/27/19 21:46 Dose: 80 mg Clopidogrel Bisulfate (Plavix -) 75 mg PO DAILY [facility] Last Admin: 10/28/19 09:40 Dose: 75 mg Famotidine (Pepcid -) 20 mg PO DAILY [facility] Last Admin: 10/28/19 09:40 Dose: 20 mg Finasteride (Proscar -) 5 mg PO DAILY [facility] Last Admin: 10/28/19 09:40 Dose: 5 mg Heparin Sodium (Porcine) (Heparin -) 5,000 unit SQ TID [facility] Last Admin: 10/28/19 06:16 Dose: Not Given Metoprolol Succinate (Toprol Xl -) 25 mg PO DAILY [facility] Last Admin: 10/28/19 09:40 Dose: 25 mg Pantoprazole Sodium (Protonix -) 40 mg PO DAILY [facility] Last Admin: 10/28/19 09:40 Dose: 40 mg Polyethylene Glycol (Miralax (For Daily Use) -) 17 gm PO BID [facility] Last Admin: 10/28/19 09:40 Dose: Not Given - Objective Vital Signs: Vital Signs Temperature 98.6 F 10/28/19 05:36 Pulse Rate 76 10/28/19 05:36 Respiratory Rate 20 10/28/19 05:36 Blood Pressure 129/53 L 10/28/19 05:36 O2 Sat by Pulse Oximetry (%) 97 10/28/19 04:00 Constitutional: Yes: No Distress, Calm, Thin Neck: Yes: Supple Cardiovascular: Yes: Regular Rate and Rhythm Respiratory: Yes: Regular, CTA Bilaterally Gastrointestinal: Yes: Normal Bowel Sounds, Soft Edema: No Labs: CBC, BMP 10/28/19 08:20 10/27/19 06:00 INR, PTT INR 1.08 (0.83-1.09) 10/27/19 06:00 - ....Imaging EKG: Report Reviewed (Tele: NSR occ PAC, PVC EKG: NSR @ 69 w/o ST-T changes) Problem List - Problems (1) Anemia Code(s): D64.9 - ANEMIA, UNSPECIFIED Qualifiers: Anemia type: unspecified type Qualified Code(s): D64.9 - Anemia, unspecified (2) Chest pain Code(s): R07.9 - CHEST PAIN, UNSPECIFIED Qualifiers: Chest pain type: unspecified Qualified Code(s): R07.9 - Chest pain, unspecified (3) Diastolic CHF Code(s): I50.30 - UNSPECIFIED DIASTOLIC (CONGESTIVE) HEART FAILURE Qualifiers: Heart failure chronicity: chronic Qualified Code(s): I50.32 - Chronic diastolic (congestive) heart failure (4) HTN (hypertension) Code(s): I10 - ESSENTIAL (PRIMARY) HYPERTENSION Qualifiers: Hypertension type: essential hypertension Qualified Code(s): I10 - Essential (primary) hypertension (5) Hypercholesterolemia Code(s): E78.00 - PURE HYPERCHOLESTEROLEMIA, UNSPECIFIED (6) CAD (coronary artery disease) Code(s): I25.10 - ATHSCL HEART DISEASE OF [place] CORONARY ARTERY W/O ANG PCTRS Qualifiers: Coronary Disease-Associated Artery/Lesion type: [place] artery [place] vs. transplanted heart: [place] heart Associated angina: with stable angina Qualified Code(s): I25.118 - Atherosclerotic heart disease of [place] coronary artery with other forms of angina pectoris (7) H/O heart artery stent Code(s): Z95.5 - PRESENCE OF CORONARY ANGIOPLASTY IMPLANT AND GRAFT Assessment/Plan Stress MIBI 07/01/19 at [facility]: mod-severe ischemia inferior 07/06/2019 Severe mid RCA s/p 3.0 x 18 mm Sidon ROBINSON, mod-severe ostial LAD-D2 ECHO 07/2019: normal LVEF 60-65%; abnormal diastolic compliance Grade 2, mild- mod MR, mild-mod TR, mild TX 1. CAD s/p PCI/stent, angina pectoris 2. HTN heart disease 3. Hypercholesterolemia 4. History of glaucoma 5. Anemia 6. Carotid artery disease 7. Diastolic dysfunction PLAN: 1. Ruled out for MA 2. Continue ASA 81 qd and Plavix 75 qd 3. Continue Ranexa 500 mg BID 4. Continue Metoprolol ER 25 mg QD and Losartan 50 mg QD 5. Continue Lipitor 80 qd 6. Patient may be discharged home as he has 3 negative troponins and to follow up with Dr. Garnett 7. Anemia evaluation as outpatient
[2019-10-28 11:05] VITALS: BP 127/69; PULSE 75
[2019-10-28] MEDS ORDERED: RANOLAZINE E.R. 500 MG TABLET (FP) PO SCH (12:30)
--- NOTE | 2019-10-28 13:33 | DS ---
Physical Exam: SUBJECTIVE: Patient seen and examined OBJECTIVE: Vital Signs Period Temp Pulse Resp BP Sys/Werner Pulse Ox Last 24 Hr 97.4 F-98.7 F 59-84 18-20 107-129/49-69 97-97 PHYSICAL EXAM GENERAL: The patient is awake, alert, and fully oriented, in no acute distress. HEAD: Normal with no signs of trauma. EYES: PERRL, extraocular movements intact, sclera anicteric, conjunctiva clear. ENT: Ears normal, nares patent, oropharynx clear without exudates, moist mucous membranes. NECK: Trachea midline, full range of motion, supple. LUNGS: Breath sounds equal, clear to auscultation bilaterally, no wheezes, no crackles, no accessory muscle use. HEART: Regular rate and rhythm, S1, S2 without murmur, rub or gallop. ABDOMEN: Soft, nontender, nondistended, normoactive bowel sounds, no guarding, no rebound, no hepatosplenomegaly, no masses. EXTREMITIES: 2+ pulses, warm, well-perfused, no edema. NEUROLOGICAL: Cranial nerves II through XII grossly intact. Normal speech, gait not observed. PSYCH: Normal mood, normal affect. SKIN: Warm, dry, normal turgor, no rashes or lesions noted. LABS Laboratory Results - last 24 hr 10/28/19 10/28/19 08:20 08:20 WBC 3.9 L RBC 3.89 L Hgb 11.6 L Hct 34.8 L MCV 89.4 MCH 29.8 MCHC 33.4 RDW 17.5 H Plt Count 175 MPV 8.7 LD Total 166 HOSPITAL COURSE: Date of Admission:10/26/19 Date of Discharge: 10/28/19 Discharge Summary Problems reviewed: Yes Reason For Visit: CHEST PAIN Current Active Problems Anemia (Acute) Chest pain (Acute) Diastolic CHF (Acute) Condition: Good - Instructions Diet, Activity, Other Instructions: YOUR VISIT You came to the hospital because you were feeling chest pain. While here you heart was continuously monitored and you were seen by a spiral winder. You are now stable and may return home. MEDICATIONS Please continue to take your home medications as prescribed - Atorvastatin 80 mg by mouth every night - Clopidogrel 75 mg by mouth every day - Finasteride 5 mg by mouth every day - Losartan 50 mg by mouth every day - Metoprolol 25 mg by mouth every day - Aspirin 81 mg by mouth every day - Isosorbide mononitrate by mouth every day ADDITIONAL CARE Please make an appointment to see your primary care provider, Dr. Thrasher, 1 week from today. If you prefer, you can be seen at the [facility] residents clinic located at [address] [place] [address]. Please call to make an appointment. If you would like to continue seeing Dr. Harley Lazo, please ask for a Friday morning appointment. Please make an appointment to see a spiral winder 1 week from today. A referral to Dr. Hutson has been provided. ADDITIONAL INFORMATION Please call 911 or come directly to the emergency department if you experience unusual headache, vision change, shortness of breath, chest pain, numbness, tingling, loss of alertness/awareness, loss of function, unusual bleeding or any alarming symptoms. Referrals: Harley Lazo RES [Resident] - Keshawn Noland MD [Staff Physician] - Juan C Thrasher MD [Primary Care Provider] - Noble Hutson MD [Staff Physician] - Disposition: HOME - Home Medications Comprehensive Discharge Medication List: Ambulatory Orders Finasteride [Proscar -] 5 mg PO DAILY 06/26/19 Aspirin [ASA -] 81 mg PO DAILY tab.chew 07/01/19 Atorvastatin Ca [Lipitor] 80 mg PO HS 08/01/19 Clopidogrel Bisulfate [Plavix] 75 mg PO DAILY 08/01/19 Losartan Potassium 50 mg PO DAILY 08/01/19 Metoprolol Succinate 25 mg PO DAILY 08/01/19 Isosorbide Mononitrate [Imdur -] 60 mg PO DAILY #30 tab.sr.24h 08/02/19 Pantoprazole Sodium 40 mg PO DAILY 08/25/19 Ranitidine [Zantac -] 150 mg PO HS 08/25/19 Netarsudil Mesylat/Latanoprost [Rocklatan 0.02%-0.005% Eye Drp] 1 drop OU DAILY 10/27/19 ATTENDING PHYSICIAN STATEMENT I saw and evaluated the patient. I reviewed the resident's note and discussed the case with the resident. I agree with the resident's findings and plan as documented. SUBJECTIVE: OBJECTIVE: ASSESSMENT AND PLAN:
--- NOTE | 2019-10-28 14:07 | DS ---
Physical Exam: SUBJECTIVE: Patient seen and examined at bedside. He offers no complaints. OBJECTIVE: Vital Signs Period Temp Pulse Resp BP Sys/Werner Pulse Ox Last 24 Hr 97.4 F-98.6 F 59-77 18-20 107-129/49-69 97-97 PHYSICAL EXAM GENERAL: Awake, alert, and fully oriented, in no acute distress. HEAD: Normal with no signs of trauma. EYES: Pupils equal, round and reactive to light, extraocular movements intact, sclera anicteric EARS, NOSE, THROAT: nares patent, oropharynx clear without exudates. Moist mucous membranes. NECK: Normal range of motion, supple without lymphadenopathy, JVD, or masses. LUNGS: Breath sounds equal, clear to auscultation bilaterally. No wheezes, and no crackles. No accessory muscle use. HEART: Regular rate and rhythm, normal S1 and S2 without murmur, rub or gallop. tenderness to palpation over left chest wall ABDOMEN: Soft, nontender, not distended, normoactive bowel sounds, no guarding, no rebound, no masses. No hepatomegaly or splenomegaly. RANDY: intact sphrincter strength, soft prostate, no gross blood on glove, FOBT neg MUSCULOSKELETAL: Normal range of motion at all joints. No bony deformities or tenderness. No CVA tenderness. UPPER EXTREMITIES: 2+ pulses, warm, well-perfused. No cyanosis. No clubbing. No peripheral edema. LOWER EXTREMITIES: 2+ pulses, warm, well-perfused. No calf tenderness. No peripheral edema. NEUROLOGICAL: Cranial nerves II-XII intact. Normal speech. Normal gait. PSYCHIATRIC: Cooperative. Good eye contact. Appropriate mood and affect. SKIN: Warm, dry, normal turgor, no rashes or lesions noted, normal capillary refill. LABS Laboratory Results - last 24 hr 10/28/19 10/28/19 08:20 08:20 WBC 3.9 L RBC 3.89 L Hgb 11.6 L Hct 34.8 L MCV 89.4 MCH 29.8 MCHC 33.4 RDW 17.5 H Plt Count 175 MPV 8.7 LD Total 166 HOSPITAL COURSE: Date of Admission:10/26/19 84 y/o male PMH leukopenia/neutropenia, BPH, gynecomastia, HTN, LEFT hip and shoulder arthritis, CAD s/p recent stent placement in [facility] 06/21 who presented with CP and palpitations. CP with palpitations occurred while straining but did not recur. tele with no arrhythmias. Cardiac meds were cont including ranexa and losartan and imdur. Advised to f/u with cardiology as out- pt. He was noted to have an KYLIE, which resolved. For CAD, home regimen was cont : Asa, plavix, and BB plus ranexa and imdur. HTN managed with BB, losarttan, and norvasc. A pancytopenia was noted but pt already follows with environmental services technician and BM bx was not recommended. Given h/o BPH, finasteride was continued. Rec f/ u with his GI for colonoscopy as last one was 5 years ago. He was dc home with rec to f/u with cardiology, GI, PCP and hem/onc. Date of Discharge: 10/28/19 Minutes to complete discharge: 40 Discharge Summary Problems reviewed: Yes Reason For Visit: CHEST PAIN Current Active Problems Chest pain (Acute) Anemia (Chronic) Condition: Improved - Instructions Diet, Activity, Other Instructions: YOUR VISIT You came to the hospital because you were feeling chest pain. While here you heart was continuously monitored and you were seen by a sow manager. You are now stable and may return home. MEDICATIONS Please continue to take your home medications as prescribed - Atorvastatin 80 mg by mouth every night - Clopidogrel 75 mg by mouth every day - Finasteride 5 mg by mouth every day - Losartan 50 mg by mouth every day - Metoprolol 25 mg by mouth every day - Aspirin 81 mg by mouth every day - Isosorbide mononitrate by mouth every day - ranexa twice a day - protonix and ranitidine. and your eye drops The medication list that you provided was inaccurate. Please take whatever is on this discharge list. ADDITIONAL CARE Please make an appointment to see your primary care provider, Dr. Thrasher, 1 week from today Please make an appointment to see a sow manager [address] Garnett . You need to go back to your GI doctor to evaluate your anemia, as you might need colonoscopy. Plese see your primary care doctor to continue to evaluate your anemia please follow with your environmental services technician to continue work up fro your low counts including your hemoglobin ADDITIONAL INFORMATION Please call 911 or come directly to the emergency department if you experience unusual headache, vision change, shortness of breath, chest pain, numbness, tingling, loss of alertness/awareness, loss of function, unusual bleeding or any alarming symptoms. Referrals: Kp Garnett MD [Staff Physician] - 1 Week Juan C Thrasher MD [Primary Care Provider] - Disposition: VNS/HOME HEALTH CARE - Home Medications Comprehensive Discharge Medication List: Ambulatory Orders Finasteride [Proscar -] 5 mg PO DAILY 06/26/19 Aspirin [ASA -] 81 mg PO DAILY tab.chew 07/01/19 Atorvastatin Ca [Lipitor] 80 mg PO HS 08/01/19 Clopidogrel Bisulfate [Plavix] 75 mg PO DAILY 08/01/19 Losartan Potassium 50 mg PO DAILY 08/01/19 Metoprolol Succinate 25 mg PO DAILY 08/01/19 Isosorbide Mononitrate [Imdur -] 60 mg PO DAILY #30 tab.sr.24h 08/02/19 Pantoprazole Sodium 40 mg PO DAILY 08/25/19 Ranitidine [Zantac -] 150 mg PO HS 08/25/19 Netarsudil Mesylat/Latanoprost [Rocklat[place] 0.02%-0.005% Eye Drp] 1 drop OU DAILY 10/27/19 Ranolazine [Ranexa] 500 mg PO BID #60 tab.er.12h 10/28/19 This patient is new to me today: No Emergency Visit: No Critical Care patient: No - Discharge Referral Referred to [facility] No ATTENDING PHYSICIAN STATEMENT I saw and evaluated the patient. I reviewed the resident's note and discussed the case with the resident. I agree with the resident's findings and plan as documented. SUBJECTIVE: OBJECTIVE: ASSESSMENT AND PLAN:
--- NOTE | 2019-10-28 14:09 | PN ---
Teaching Attending Note Name of Resident: Harley Lazo ATTENDING PHYSICIAN STATEMENT I saw and evaluated the patient. I reviewed the resident's note and discussed the case with the resident. I agree with the resident's findings and plan as documented. SUBJECTIVE: No fever or chills. No CP or SOB . No palpitations . reported being a little SOB earlier which resolved sponatneously. walking with no problem OBJECTIVE: NAD, cooperative CV: RRR, No MRG. Lungs: CTAB Ext: trace edema on both legs. varicose veins on feet. DP 2+ bilaterally ASSESSMENT AND PLAN: 84 y/o man with H/o leukopenia/neutropenia, BPH, gynecomastia, HTN, L hip and shoulder arthritis , CAD s/p recent stent placement in [facility] 06/21 who presented with CP and palpitations . 1- CP with palpitations while straining: did not recur. tele with no arrhythmias . cont cardiac meds including ranexa and losartan and imdur f/u with card as outpt 2- KYLIE: resolved 3- H/o CAD s/p stent 06/21. - cont ASa , plavix, and BB. - ranexa and imdur 4- HTN: cont BB . losarttan. norvasc 5- Pancytopenia: He follows with a electronic sales and service technician. He says he was told he did not need BM bx. 6- H/o BPH: cont Finasteride 7- Anemia: normocytic. ? part of pancytopenia or due to GI loss. rectal exam by Dr. Ulloa with neg OB. cont asa and plavix and f/u with his GI fro colonoscopy ( last one 5 years ago) . cont to follow with his electronic sales and service technician . iron studies do not indicate iron def dc home. f/u with card, GI, PCP and heme
[2019-10-29] MEDS ORDERED: LOSARTAN POTASSIUM 50 MG TABLET (FP) PO SCH (10:00)
== END 2019-10-28 14:38 | disposition home health service (06) ==
LOC: JER 15:31 → JERBED 17:50 → J4W 21:12
PROVIDERS: ADMIT Internal Medicine; ATTEND Internal Medicine
PROC: 3E033NZ Introduction of Analgesics, Hypnotics, Sedatives into Peripheral Vein, Percutaneous Approach (ICD-10-PCS; principal; 2019-10-26)
PROC: 3E0337Z Introduction of Electrolytic and Water Balance Substance into Peripheral Vein, Percutaneous Approach (ICD-10-PCS; 2019-10-26)
PROC: 3E023NZ Introduction of Analgesics, Hypnotics, Sedatives into Muscle, Percutaneous Approach (ICD-10-PCS; 2019-10-26)
DX: R07.89 Other chest pain (principal); I11.0 Hypertensive heart disease with heart failure; E78.5 Hyperlipidemia, unspecified; I25.10 Atherosclerotic heart disease of native coronary artery without angina pectoris; I25.2 Old myocardial infarction; E11.9 Type 2 diabetes mellitus without complications; N40.0 Benign prostatic hyperplasia without lower urinary tract symptoms; I50.30 Unspecified diastolic (congestive) heart failure; D50.9 Iron deficiency anemia, unspecified; I65.29 Occlusion and stenosis of unspecified carotid artery; K59.00 Constipation, unspecified; N17.9 Acute kidney failure, unspecified; D61.818 Other pancytopenia; Z88.0 Allergy status to penicillin; Z88.8 Allergy status to other drugs, medicaments and biological substances; Z91.011 Allergy to milk products; Z95.5 Presence of coronary angioplasty implant and graft; Z79.82 Long term (current) use of aspirin
CPT/HCPCS: 36415; 71045-TC-FY; 80053; 81003; 82728; 83540; 83550; 83615; 83735; 83880; 84100; 84484; 85025; 85027; 85610; 93005; 93010; 96372; 96374; 99285-25; G0378; J0131; J1644

== ENCOUNTER 2020-11-16 19:51 | Inpatient (IN) | payer OTHER ==
[2020-11-16] MEDS ORDERED: ACETAMINOPHEN 325 MG TABLET (FP) PO ONE (21:20)
[2020-11-16] MEDS ORDERED: DEXAMETHASONE SOD PHOSPHATE 4 MG/1 ML VIAL IVPUSH ONE (21:20)
[2020-11-16] MEDS ORDERED: ACETAMINOPHEN 325 MG TABLET (FP) ONE (21:34)
[2020-11-16] MEDS ORDERED: DEXAMETHASONE SOD PHOSPHATE 4 MG/1 ML VIAL ONE (21:34)
[2020-11-16 22:39] LABS: BASO % 0.2 % (0-2.0); HEMATOCRIT 35.2 % (35.4-49); HEMOGLOBIN 11.8 GM/dL (11.7-16.9); LYMPH % 12.2 % (8-40); MCH 29.3 pg (25.7-33.7); MCHC 33.6 g/dl (32.0-35.9); MEAN CELL VOLUME 87.3 fl (80-96); MONO % 11.6 % (3.8-10.2); PLATELET COUNT 123 K/MM3 (134-434); RBC 4.03 M/mm3 (4.00-5.60); RDW 15.7 % (11.9-15.9); WHITE BLOOD COUNT 2.9 K/mm3 (4.0-10.0)
[2020-11-16 22:48] LABS: INR 1.11 (0.83-1.09); PROTHROMBIN TIME (PATIENT) 13.6 SEC (9.7-13.0)
[2020-11-16 22:50] LABS: ACTIVATED PTT 32.4 SECONDS (25.2-36.5)
[2020-11-16 23:03] LABS: CHLORIDE 101 mmol/L (98-107); POTASSIUM 3.6 mmol/L (3.5-5.1); SODIUM 137 mmol/L (136-145)
[2020-11-16 23:06] LABS: ALBUMIN 3.4 g/dl (3.4-5.0); ANION GAP 3 MMOL/L (8-16); BLOOD UREA NITROGEN 31.2 mg/dL (7-18); CALCIUM 7.9 mg/dL (8.5-10.1); CO2 33 mmol/L (21-32); GLUCOSE,RANDOM 98 mg/dL (74-106)
[2020-11-16 23:08] LABS: BILIRUBIN,DIRECT 0.4 mg/dL (0.0-0.2)
[2020-11-16 23:10] LABS: BILIRUBIN,TOTAL 0.7 mg/dL (0.2-1); CREATININE 1.5 mg/dL (0.55-1.3); SGOT/AST 102 U/L (15-37); SGPT/ALT 89 U/L (13-61); TOT PROT 6.6 g/dl (6.4-8.2)
[2020-11-16 23:10] LABS: URINE APPEARANCE Clear; URINE BILIRUBIN Negative (NEGATIVE); URINE COLOR Yellow; URINE GLUCOSE (UA) Negative (NEGATIVE); URINE KETONE Trace (NEGATIVE); URINE LEUK ESTERASE Negative (NEGATIVE); URINE NITRITE Negative (NEGATIVE); URINE PROTEIN 2+ (NEGATIVE)
[2020-11-16 23:11] LABS: ALK PHOS 65 U/L (45-117)
[2020-11-16 23:13] LABS: LDH 370 U/L (87-246)
[2020-11-16 23:56] LABS: VENOUS BASE EXCESS 1.9 mmol/L (-2-2); VENOUS O2 SATURATION 97.9 % (70-80); VENOUS PCO2 33.4 mmHg (38-52); VENOUS PH 7.49 (7.310-7.410)
[2020-11-17] MEDS ORDERED: ALBUTEROL SO4 HFA INHALER IH PRN (01:03)
[2020-11-17] MEDS ORDERED: AZTREONAM 2 GM in DEXTROSE 5%-WATER 100 ML IVPB SCH ×2 (01:15→01:45)
[2020-11-17] MEDS ORDERED: AZTREONAM 1 GM VIAL (RESTRICTED TO ID) ONE ×3 (01:57→09:17)
[2020-11-17] MEDS ORDERED: HEPARIN NA (PORCINE) 5,000 UNITS/ML 1ML VIAL ONE ×3 (01:58→18:08)
[2020-11-17] MEDS: HEPARIN NA (PORCINE) 5,000 UNITS/ML 1ML VIAL SQ SCH ×3 (02:00→18:17)
[2020-11-17] MEDS: AZTREONAM 2 GM in DEXTROSE 5%-WATER 100 ML IVPB SCH ×3 (02:00→19:00)
[2020-11-17] MEDS ORDERED: SODIUM CHLORIDE 1,000 ML IV SCH (02:15)
[2020-11-17 07:27] LABS: HEMATOCRIT 33.2 % (35.4-49); HEMOGLOBIN 11.2 GM/dL (11.7-16.9); MCH 29.7 pg (25.7-33.7); MCHC 33.8 g/dl (32.0-35.9); MEAN CELL VOLUME 87.7 fl (80-96); MEAN PLT VOLUME 9.1 fl (7.5-11.1); PLATELET COUNT 116 K/MM3 (134-434); RBC 3.79 M/mm3 (4.00-5.60); RDW 15.5 % (11.9-15.9)
[2020-11-17 07:42] LABS: POTASSIUM 3.7 mmol/L (3.5-5.1)
[2020-11-17 07:46] LABS: INR 1.08 (0.83-1.09); PROTHROMBIN TIME (PATIENT) 13.2 SEC (9.7-13.0)
[2020-11-17 07:47] LABS: ACTIVATED PTT 32.6 SECONDS (25.2-36.5)
[2020-11-17 07:55] LABS: ALBUMIN 2.9 g/dl (3.4-5.0); CALCIUM 8.2 mg/dL (8.5-10.1)
[2020-11-17 07:57] LABS: BLOOD UREA NITROGEN 31.8 mg/dL (7-18)
[2020-11-17 07:59] LABS: BILIRUBIN,TOTAL 0.7 mg/dL (0.2-1); CREATININE 1.3 mg/dL (0.55-1.3); PHOSPHOROUS 3.1 mg/dL (2.5-4.9)
[2020-11-17 08:00] LABS: MAGNESIUM 2.7 mg/dL (1.8-2.4)
[2020-11-17] MEDS ORDERED: DEXAMETHASONE SOD PHOSPHATE 10 MG/1 ML VIAL ONE (09:06)
[2020-11-17] MEDS ORDERED: ASPIRIN 81 MG CHEWABLE TABLETS ONE (09:06)
[2020-11-17] MEDS ORDERED: ASCORBIC ACID 500 MG TABLET (FP) ONE ×2 (09:06→23:15)
[2020-11-17] MEDS ORDERED: FAMOTIDINE 20 MG TABLET ONE (09:06)
[2020-11-17] MEDS ORDERED: ZINC SULFATE 220 MG CAPSULE (FP) ONE (09:06)
[2020-11-17] MEDS ORDERED: CHOLECALCIFEROL (VIT D3) 1,000 UNIT (25 MCG) TABLET ONE (09:07)
[2020-11-17] MEDS: FAMOTIDINE 20 MG TABLET PO SCH (09:15)
[2020-11-17] MEDS: CHOLECALCIFEROL (VIT D3) 1,000 UNIT (25 MCG) TABLET PO SCH (09:15)
[2020-11-17] MEDS: DEXAMETHASONE SOD PHOSPHATE 4 MG/1 ML VIAL IVPUSH SCH (09:15)
[2020-11-17] MEDS: ZINC SULFATE 220 MG CAPSULE (FP) PO SCH (09:15)
[2020-11-17] MEDS: ASCORBIC ACID 500 MG TABLET (FP) PO SCH ×2 (09:15→23:20)
[2020-11-17] MEDS: ASPIRIN 81 MG CHEWABLE TABLETS PO SCH (09:40)
[2020-11-17] MEDS ORDERED: PANTOPRAZOLE 40 MG TABLET PO SCH (10:00)
[2020-11-17] MEDS ORDERED: metoPROLOL SUCCINATE 25 MG TAB.SR.24H (FP) PO SCH (10:00)
[2020-11-17] MEDS: AZITHROMYCIN IVPB 250 MG in DEXTROSE 5%-WATER - 250 ML IVPB SCH (10:45)
[2020-11-17] MEDS ORDERED: LACTATED RINGERS SOLUTION 1,000 ML/1,000 ML INFUS.BAG IV SCH (15:30)
[2020-11-17] MEDS ORDERED: REMDESIVIR 200 MG in SODIUM CHLORIDE 210 ML IVPB ONE (19:00)
[2020-11-17] MEDS ORDERED: ATORVASTATIN CA 80 MG TABLET (FP) PO SCH (22:00)
[2020-11-18] MEDS ORDERED: AZTREONAM 2 GM in DEXTROSE 5%-WATER 100 ML IVPB SCH ×2 (02:00→05:45)
[2020-11-18] MEDS ORDERED: AZTREONAM 1 GM VIAL (RESTRICTED TO ID) ONE (05:25)
[2020-11-18] MEDS ORDERED: HEPARIN NA (PORCINE) 5,000 UNITS/ML 1ML VIAL ONE (05:26)
[2020-11-18] MEDS: HEPARIN NA (PORCINE) 5,000 UNITS/ML 1ML VIAL SQ SCH ×3 (05:48→17:48)
[2020-11-18 08:01] LABS: BASO % 0.1 % (0-2.0); HEMATOCRIT 33.1 % (35.4-49); HEMOGLOBIN 11.3 GM/dL (11.7-16.9); LYMPH % 9.4 % (8-40); MCH 29.6 pg (25.7-33.7); MCHC 34.2 g/dl (32.0-35.9); MEAN CELL VOLUME 86.6 fl (80-96); MEAN PLT VOLUME 9.1 fl (7.5-11.1); MONO % 6.4 % (3.8-10.2); NEUT % 84.1 % (42.8-82.8); PLATELET COUNT 129 K/MM3 (134-434); RBC 3.83 M/mm3 (4.00-5.60); RDW 15.7 % (11.9-15.9); WHITE BLOOD COUNT 7.2 K/mm3 (4.0-10.0)
[2020-11-18 08:28] LABS: POTASSIUM 3.8 mmol/L (3.5-5.1)
[2020-11-18 08:33] LABS: ALBUMIN 2.5 g/dl (3.4-5.0); CALCIUM 7.7 mg/dL (8.5-10.1)
[2020-11-18 08:34] LABS: MAGNESIUM 2.5 mg/dL (1.8-2.4)
[2020-11-18 08:37] LABS: CREATININE 0.9 mg/dL (0.55-1.3); PHOSPHOROUS 2.7 mg/dL (2.5-4.9)
[2020-11-18 08:38] LABS: BILIRUBIN,TOTAL 0.4 mg/dL (0.2-1); TOT PROT 5.4 g/dl (6.4-8.2)
[2020-11-18] MEDS: ASPIRIN 81 MG CHEWABLE TABLETS PO SCH (09:43)
[2020-11-18] MEDS: CHOLECALCIFEROL (VIT D3) 1,000 UNIT (25 MCG) TABLET PO SCH (09:43)
[2020-11-18] MEDS: ASCORBIC ACID 500 MG TABLET (FP) PO SCH ×3 (09:43→21:28)
[2020-11-18] MEDS: ZINC SULFATE 220 MG CAPSULE (FP) PO SCH (09:43)
[2020-11-18] MEDS: DEXAMETHASONE SOD PHOSPHATE 4 MG/1 ML VIAL IVPUSH SCH (09:43)
[2020-11-18] MEDS: FAMOTIDINE 20 MG TABLET PO SCH (09:43)
[2020-11-18] MEDS: AZITHROMYCIN IVPB 250 MG in DEXTROSE 5%-WATER - 250 ML IVPB SCH (09:44)
[2020-11-18] MEDS: DOCUSATE SODIUM 100 MG CAPSULE (FP) PO SCH ×3 (15:59→21:25)
[2020-11-18] MEDS: POLYETHYLENE GLYCOL 3350 119 GM BTL PO ONE ×2 (15:59→16:20)
[2020-11-18] MEDS ORDERED: SODIUM PHOSPHATE/NA BIPHOS 133 ML ENEMA PR ONE (16:22)
[2020-11-18] MEDS: REMDESIVIR 100 MG in SODIUM CHLORIDE 230 ML IVPB SCH (20:35)
[2020-11-19] MEDS: HEPARIN NA (PORCINE) 5,000 UNITS/ML 1ML VIAL SQ SCH ×3 (01:09→17:50)
[2020-11-19] MEDS: DOCUSATE SODIUM 100 MG CAPSULE (FP) PO SCH ×3 (07:12→21:01)
[2020-11-19 07:21] LABS: BASO % 0.1 % (0-2.0); HEMATOCRIT 34.2 % (35.4-49); HEMOGLOBIN 11.8 GM/dL (11.7-16.9); LYMPH % 7.7 % (8-40); MCH 29.9 pg (25.7-33.7); MCHC 34.7 g/dl (32.0-35.9); MEAN CELL VOLUME 86.1 fl (80-96); MEAN PLT VOLUME 8.4 fl (7.5-11.1); MONO % 6.6 % (3.8-10.2); NEUT % 85.6 % (42.8-82.8); PLATELET COUNT 174 K/MM3 (134-434); RBC 3.97 M/mm3 (4.00-5.60); RDW 15.4 % (11.9-15.9); WHITE BLOOD COUNT 7.1 K/mm3 (4.0-10.0)
[2020-11-19 08:34] LABS: POTASSIUM 3.8 mmol/L (3.5-5.1)
[2020-11-19 08:39] LABS: BLOOD UREA NITROGEN 24.1 mg/dL (7-18); CALCIUM 7.7 mg/dL (8.5-10.1)
[2020-11-19 08:41] LABS: ALBUMIN 2.4 g/dl (3.4-5.0); MAGNESIUM 2.6 mg/dL (1.8-2.4)
[2020-11-19 08:42] LABS: CREATININE 0.9 mg/dL (0.55-1.3)
[2020-11-19 08:43] LABS: BILIRUBIN,TOTAL 0.6 mg/dL (0.2-1); TOT PROT 5.3 g/dl (6.4-8.2)
[2020-11-19] MEDS: DEXAMETHASONE SOD PHOSPHATE 4 MG/1 ML VIAL IVPUSH SCH (09:39)
[2020-11-19] MEDS: CHOLECALCIFEROL (VIT D3) 1,000 UNIT (25 MCG) TABLET PO SCH (09:40)
[2020-11-19] MEDS: ZINC SULFATE 220 MG CAPSULE (FP) PO SCH (09:40)
[2020-11-19] MEDS: FAMOTIDINE 20 MG TABLET PO SCH (09:40)
[2020-11-19] MEDS: ASCORBIC ACID 500 MG TABLET (FP) PO SCH ×2 (09:40→21:01)
[2020-11-19] MEDS: ASPIRIN 81 MG CHEWABLE TABLETS PO SCH (09:40)
[2020-11-19] MEDS: AZITHROMYCIN IVPB 250 MG in DEXTROSE 5%-WATER - 250 ML IVPB SCH (12:06)
[2020-11-19] MEDS: REMDESIVIR 100 MG in SODIUM CHLORIDE 230 ML IVPB SCH (18:01)
[2020-11-20] MEDS: HEPARIN NA (PORCINE) 5,000 UNITS/ML 1ML VIAL SQ SCH ×3 (01:44→17:35)
[2020-11-20] MEDS: DOCUSATE SODIUM 100 MG CAPSULE (FP) PO SCH ×3 (05:14→22:07)
[2020-11-20 08:19] LABS: ALBUMIN 2.3 g/dl (3.4-5.0); BLOOD UREA NITROGEN 27.2 mg/dL (7-18); CALCIUM 7.7 mg/dL (8.5-10.1); MAGNESIUM 2.7 mg/dL (1.8-2.4)
[2020-11-20 08:22] LABS: CREATININE 0.9 mg/dL (0.55-1.3)
[2020-11-20 08:22] LABS: HEMATOCRIT 33.9 % (35.4-49); HEMOGLOBIN 11.6 GM/dL (11.7-16.9); MCH 29.6 pg (25.7-33.7); MCHC 34.2 g/dl (32.0-35.9); MEAN CELL VOLUME 86.5 fl (80-96); MEAN PLT VOLUME 8.5 fl (7.5-11.1); PLATELET COUNT 185 K/MM3 (134-434); RBC 3.92 M/mm3 (4.00-5.60); RDW 15.6 % (11.9-15.9); WHITE BLOOD COUNT 5.4 K/mm3 (4.0-10.0)
[2020-11-20 08:24] LABS: TOT PROT 5.1 g/dl (6.4-8.2)
[2020-11-20 08:26] LABS: BILIRUBIN,TOTAL 0.6 mg/dL (0.2-1)
[2020-11-20] MEDS ORDERED: PT OWN MED DRAWER 7, Y5N ONE (08:29)
[2020-11-20] MEDS: ASPIRIN 81 MG CHEWABLE TABLETS PO SCH (10:04)
[2020-11-20] MEDS: DEXAMETHASONE SOD PHOSPHATE 4 MG/1 ML VIAL IVPUSH SCH (10:05)
[2020-11-20] MEDS: ZINC SULFATE 220 MG CAPSULE (FP) PO SCH (10:06)
[2020-11-20] MEDS: FAMOTIDINE 20 MG TABLET PO SCH (10:07)
[2020-11-20] MEDS: ASCORBIC ACID 500 MG TABLET (FP) PO SCH ×2 (10:07→22:07)
[2020-11-20] MEDS: CHOLECALCIFEROL (VIT D3) 1,000 UNIT (25 MCG) TABLET PO SCH (10:07)
[2020-11-20 12:52] LABS: ANISOCYTOSIS 2+; MACROCYTOSIS 1+; PLATELET ESTIMATE NORMAL
[2020-11-20] MEDS: AZITHROMYCIN IVPB 250 MG in DEXTROSE 5%-WATER - 250 ML IVPB SCH (13:11)
[2020-11-20] MEDS: REMDESIVIR 100 MG in SODIUM CHLORIDE 230 ML IVPB SCH (19:00)
[2020-11-21] MEDS: HEPARIN NA (PORCINE) 5,000 UNITS/ML 1ML VIAL SQ SCH ×3 (01:18→18:05)
[2020-11-21] MEDS: DOCUSATE SODIUM 100 MG CAPSULE (FP) PO SCH ×3 (06:57→21:53)
[2020-11-21 07:53] LABS: BASO % 0.2 % (0-2.0); HEMATOCRIT 34.7 % (35.4-49); HEMOGLOBIN 11.8 GM/dL (11.7-16.9); MCH 29.4 pg (25.7-33.7); MCHC 34.1 g/dl (32.0-35.9); MEAN CELL VOLUME 86.2 fl (80-96); MEAN PLT VOLUME 8.2 fl (7.5-11.1); MONO % 8.6 % (3.8-10.2); NEUT % 81.2 % (42.8-82.8); PLATELET COUNT 245 K/MM3 (134-434); RBC 4.03 M/mm3 (4.00-5.60); RDW 15.7 % (11.9-15.9); WHITE BLOOD COUNT 5.5 K/mm3 (4.0-10.0)
[2020-11-21 08:11] LABS: POTASSIUM 3.6 mmol/L (3.5-5.1)
[2020-11-21 08:38] LABS: ALBUMIN 2.3 g/dl (3.4-5.0); BLOOD UREA NITROGEN 24.1 mg/dL (7-18); CALCIUM 7.8 mg/dL (8.5-10.1)
[2020-11-21 08:39] LABS: MAGNESIUM 2.6 mg/dL (1.8-2.4)
[2020-11-21 08:41] LABS: CREATININE 0.9 mg/dL (0.55-1.3)
[2020-11-21 08:43] LABS: BILIRUBIN,TOTAL 0.7 mg/dL (0.2-1); TOT PROT 5.1 g/dl (6.4-8.2)
[2020-11-21] MEDS: ASCORBIC ACID 500 MG TABLET (FP) PO SCH ×2 (09:31→21:53)
[2020-11-21] MEDS: CHOLECALCIFEROL (VIT D3) 1,000 UNIT (25 MCG) TABLET PO SCH (09:31)
[2020-11-21] MEDS: ASPIRIN 81 MG CHEWABLE TABLETS PO SCH (09:31)
[2020-11-21] MEDS: DEXAMETHASONE SOD PHOSPHATE 4 MG/1 ML VIAL IVPUSH SCH (09:31)
[2020-11-21] MEDS: FAMOTIDINE 20 MG TABLET PO SCH (09:31)
[2020-11-21] MEDS: ZINC SULFATE 220 MG CAPSULE (FP) PO SCH (09:31)
[2020-11-21] MEDS: REMDESIVIR 100 MG in SODIUM CHLORIDE 230 ML IVPB SCH (18:05)
[2020-11-22] MEDS: HEPARIN NA (PORCINE) 5,000 UNITS/ML 1ML VIAL SQ SCH ×2 (02:01→10:12)
[2020-11-22] MEDS: DOCUSATE SODIUM 100 MG CAPSULE (FP) PO SCH ×3 (06:18→21:53)
[2020-11-22] MEDS: ZINC SULFATE 220 MG CAPSULE (FP) PO SCH (10:12)
[2020-11-22] MEDS: FAMOTIDINE 20 MG TABLET PO SCH (10:12)
[2020-11-22] MEDS: DEXAMETHASONE SOD PHOSPHATE 4 MG/1 ML VIAL IVPUSH SCH (10:12)
[2020-11-22] MEDS: ASPIRIN 81 MG CHEWABLE TABLETS PO SCH (10:12)
[2020-11-22] MEDS: ASCORBIC ACID 500 MG TABLET (FP) PO SCH ×2 (10:12→21:53)
[2020-11-22] MEDS: CHOLECALCIFEROL (VIT D3) 1,000 UNIT (25 MCG) TABLET PO SCH (10:13)
[2020-11-22 12:25] LABS: BASO % 0.2 % (0-2.0); EOS % 0.6 % (0-4.5); HEMATOCRIT 36.2 % (35.4-49); HEMOGLOBIN 12.3 GM/dL (11.7-16.9); LYMPH % 13.6 % (8-40); MCH 29.5 pg (25.7-33.7); MCHC 34.1 g/dl (32.0-35.9); MEAN CELL VOLUME 86.6 fl (80-96); MEAN PLT VOLUME 8.6 fl (7.5-11.1); MONO % 9.3 % (3.8-10.2); NEUT % 76.3 % (42.8-82.8); PLATELET COUNT 278 K/MM3 (134-434); RBC 4.18 M/mm3 (4.00-5.60); RDW 15.1 % (11.9-15.9); WHITE BLOOD COUNT 4.4 K/mm3 (4.0-10.0)
[2020-11-22 13:10] LABS: POTASSIUM 3.7 mmol/L (3.5-5.1)
[2020-11-22 13:12] LABS: ALBUMIN 2.4 g/dl (3.4-5.0); BLOOD UREA NITROGEN 21.2 mg/dL (7-18); CALCIUM 8.1 mg/dL (8.5-10.1)
[2020-11-22 13:13] LABS: MAGNESIUM 2.4 mg/dL (1.8-2.4)
[2020-11-22 13:15] LABS: CREATININE 0.9 mg/dL (0.55-1.3)
[2020-11-22 13:17] LABS: BILIRUBIN,TOTAL 0.8 mg/dL (0.2-1); TOT PROT 5.2 g/dl (6.4-8.2)
[2020-11-22] MEDS: APIXABAN 5 MG TABLET PO SCH (21:53)
[2020-11-23] MEDS: DOCUSATE SODIUM 100 MG CAPSULE (FP) PO SCH ×3 (06:11→21:00)
[2020-11-23] MEDS: LATANOPROST 0.005% OPHTH SOLN 2.5ML BOTTLE OU SCH ×2 (06:15→21:00)
[2020-11-23 08:24] LABS: POTASSIUM 3.4 mmol/L (3.5-5.1)
[2020-11-23 08:31] LABS: ALBUMIN 2.4 g/dl (3.4-5.0)
[2020-11-23 08:32] LABS: BLOOD UREA NITROGEN 18.8 mg/dL (7-18); CALCIUM 8.2 mg/dL (8.5-10.1); MAGNESIUM 2.2 mg/dL (1.8-2.4)
[2020-11-23 08:35] LABS: CREATININE 0.8 mg/dL (0.55-1.3)
[2020-11-23 08:36] LABS: BASO % 0.1 % (0-2.0); EOS % 0.4 % (0-4.5); HEMATOCRIT 33.7 % (35.4-49); HEMOGLOBIN 11.8 GM/dL (11.7-16.9); MCH 29.8 pg (25.7-33.7); MCHC 34.8 g/dl (32.0-35.9); MEAN CELL VOLUME 85.6 fl (80-96); MEAN PLT VOLUME 8.1 fl (7.5-11.1); MONO % 11.4 % (3.8-10.2); NEUT % 74.1 % (42.8-82.8); PLATELET COUNT 305 K/MM3 (134-434); RBC 3.94 M/mm3 (4.00-5.60); RDW 15.5 % (11.9-15.9); WHITE BLOOD COUNT 4.7 K/mm3 (4.0-10.0)
[2020-11-23] MEDS ORDERED: POTASSIUM CHLORIDE TABS 20 MEQ TABLET.ER (FP) PO ONE (08:40)
[2020-11-23] MEDS: CHOLECALCIFEROL (VIT D3) 1,000 UNIT (25 MCG) TABLET PO SCH (11:00)
[2020-11-23] MEDS: ASPIRIN 81 MG CHEWABLE TABLETS PO SCH (11:00)
[2020-11-23] MEDS: ASCORBIC ACID 500 MG TABLET (FP) PO SCH ×2 (11:00→21:00)
[2020-11-23] MEDS: FAMOTIDINE 20 MG TABLET PO SCH (11:00)
[2020-11-23] MEDS: DEXAMETHASONE SOD PHOSPHATE 4 MG/1 ML VIAL IVPUSH SCH (11:00)
[2020-11-23] MEDS: ZINC SULFATE 220 MG CAPSULE (FP) PO SCH (11:00)
[2020-11-23] MEDS: APIXABAN 5 MG TABLET PO SCH ×2 (11:00→21:00)
[2020-11-23] MEDS ORDERED: POLYETHYLENE GLYCOL 3350 119 GM BTL PO ONE (17:26)
[2020-11-23] MEDS ORDERED: ACETAMINOPHEN 325 MG TABLET (FP) PO PRN (17:27)
[2020-11-23] MEDS: ALPRAZolam 0.25 MG TABLET PO PRN (21:00)
[2020-11-24] MEDS: DOCUSATE SODIUM 100 MG CAPSULE (FP) PO SCH ×3 (06:28→22:35)
[2020-11-24] MEDS: FAMOTIDINE 20 MG TABLET PO SCH (09:46)
[2020-11-24] MEDS: ASCORBIC ACID 500 MG TABLET (FP) PO SCH ×2 (09:46→22:30)
[2020-11-24] MEDS: ALPRAZolam 0.25 MG TABLET PO PRN (09:46)
[2020-11-24] MEDS: CHOLECALCIFEROL (VIT D3) 1,000 UNIT (25 MCG) TABLET PO SCH (09:46)
[2020-11-24] MEDS: APIXABAN 5 MG TABLET PO SCH ×2 (09:46→22:30)
[2020-11-24] MEDS: ASPIRIN 81 MG CHEWABLE TABLETS PO SCH (09:47)
[2020-11-24] MEDS: ZINC SULFATE 220 MG CAPSULE (FP) PO SCH (09:47)
[2020-11-24] MEDS: DEXAMETHASONE SOD PHOSPHATE 4 MG/1 ML VIAL IVPUSH SCH (09:47)
[2020-11-24] MEDS ORDERED: PATIENT'S OWN MEDICATION (NON-FORMULARY) (Netarsudil Mesylat/Latanoprost [Rocklatan 0.02%- OU SCH (10:00)
[2020-11-24 12:33] VITALS: BMI 25.8
[2020-11-24 14:16] LABS: BASO % 0.2 % (0-2.0); EOS % 0.3 % (0-4.5); HEMATOCRIT 33.9 % (35.4-49); HEMOGLOBIN 11.3 GM/dL (11.7-16.9); LYMPH % 4.8 % (8-40); MCHC 33.4 g/dl (32.0-35.9); MEAN CELL VOLUME 86.8 fl (80-96); MEAN PLT VOLUME 8.1 fl (7.5-11.1); MONO % 5.7 % (3.8-10.2); PLATELET COUNT 317 K/MM3 (134-434); RBC 3.91 M/mm3 (4.00-5.60); RDW 15.5 % (11.9-15.9); WHITE BLOOD COUNT 4.6 K/mm3 (4.0-10.0)
[2020-11-24 14:37] LABS: POTASSIUM 3.9 mmol/L (3.5-5.1)
[2020-11-24 14:40] LABS: BLOOD UREA NITROGEN 23.5 mg/dL (7-18); MAGNESIUM 2.4 mg/dL (1.8-2.4)
[2020-11-24 14:41] LABS: ALBUMIN 2.6 g/dl (3.4-5.0)
[2020-11-24 14:45] LABS: BILIRUBIN,TOTAL 0.9 mg/dL (0.2-1); TOT PROT 5.6 g/dl (6.4-8.2)
[2020-11-24] MEDS: LATANOPROST 0.005% OPHTH SOLN 2.5ML BOTTLE OU SCH (22:35)
[2020-11-25] MEDS: DOCUSATE SODIUM 100 MG CAPSULE (FP) PO SCH ×3 (05:22→21:41)
[2020-11-25] MEDS: DEXAMETHASONE 4 MG TABLET (FP) PO SCH (10:24)
[2020-11-25] MEDS: CHOLECALCIFEROL (VIT D3) 1,000 UNIT (25 MCG) TABLET PO SCH (10:24)
[2020-11-25] MEDS: ASCORBIC ACID 500 MG TABLET (FP) PO SCH ×2 (10:24→21:41)
[2020-11-25] MEDS: ASPIRIN 81 MG CHEWABLE TABLETS PO SCH (10:24)
[2020-11-25] MEDS: APIXABAN 5 MG TABLET PO SCH ×2 (10:25→21:41)
[2020-11-25] MEDS: FAMOTIDINE 20 MG TABLET PO SCH (10:25)
[2020-11-25] MEDS: ZINC SULFATE 220 MG CAPSULE (FP) PO SCH (10:25)
[2020-11-25] MEDS ORDERED: BISACODYL 10 MG SUPP.RECT PR ONE (13:37)
[2020-11-25] MEDS: LATANOPROST 0.005% OPHTH SOLN 2.5ML BOTTLE OU SCH (21:46)
[2020-11-26] MEDS: DOCUSATE SODIUM 100 MG CAPSULE (FP) PO SCH (05:39)
[2020-11-26] MEDS: CHOLECALCIFEROL (VIT D3) 1,000 UNIT (25 MCG) TABLET PO SCH (09:01)
[2020-11-26] MEDS: ASCORBIC ACID 500 MG TABLET (FP) PO SCH (09:01)
[2020-11-26] MEDS: APIXABAN 5 MG TABLET PO SCH (09:01)
[2020-11-26] MEDS: ZINC SULFATE 220 MG CAPSULE (FP) PO SCH (09:02)
[2020-11-26] MEDS: DEXAMETHASONE 4 MG TABLET (FP) PO SCH (09:02)
[2020-11-26] MEDS: FAMOTIDINE 20 MG TABLET PO SCH (09:02)
[2020-11-26] MEDS: ASPIRIN 81 MG CHEWABLE TABLETS PO SCH (09:02)
[2020-11-26 13:45] VITALS: BP 120/71; PULSE 82; TEMP 97.3
== END 2020-11-26 11:55 | disposition home or self-care (01) | DRG 177 ==
LOC: JER 19:51 → JERBED 20:54 → J4S 11-18 09:25
PROVIDERS: ADMIT Internal Medicine; ATTEND Nurse Practitioner Family
PROC: XW033E5 Introduction of Remdesivir Anti-infective into Peripheral Vein, Percutaneous Approach, New Technology Group 5 (ICD-10-PCS; principal; 2020-11-18)
PROC: XW13325 Transfusion of Convalescent Plasma (Nonautologous) into Peripheral Vein, Percutaneous Approach, New Technology Group 5 (ICD-10-PCS; 2020-11-18)
DX: U07.1 COVID-19 (principal); J12.82 Pneumonia due to coronavirus disease 2019; J96.01 Acute respiratory failure with hypoxia; N17.9 Acute kidney failure, unspecified; I50.32 Chronic diastolic (congestive) heart failure; I24.8 Other forms of acute ischemic heart disease; E87.0 Hyperosmolality and hypernatremia; I25.10 Atherosclerotic heart disease of native coronary artery without angina pectoris; I10 Essential (primary) hypertension; N40.0 Benign prostatic hyperplasia without lower urinary tract symptoms; Z88.0 Allergy status to penicillin; E78.5 Hyperlipidemia, unspecified; I11.0 Hypertensive heart disease with heart failure; E86.0 Dehydration; R74.01 Elevation of levels of liver transaminase levels; H40.9 Unspecified glaucoma; K21.9 Gastro-esophageal reflux disease without esophagitis; Z95.5 Presence of coronary angioplasty implant and graft; F41.9 Anxiety disorder, unspecified; E87.6 Hypokalemia
CPT/HCPCS: 36415; 36430; 71045-TC-FY; 76775-TC; 80048; 80053; 81003; 82248; 82550; 82553; 82728; 82803; 83605; 83615; 83735; 84100; 84484; 85025; 85027; 85379; 85610; 85730; 86140; 86850; 86900; 86901; 87040; 87086; 87426; 87804; 87899; 93005; 93010; 97116-GP; 97162-GP; 99285-25; C9399; C9803; J1644; P9017; U0003

== ENCOUNTER 2021-11-19 10:28 | Emergency (ER) | payer OTHER ==
[2021-11-19 10:32] VITALS: TEMP 97; BMI 19.2
[2021-11-19] MEDS ORDERED: MAG HYDROX/AL HYDROX/SIMETH -MYLANTA- ORAL SUSPENSION PO ONE (11:12)
[2021-11-19] MEDS ORDERED: PANTOPRAZOLE SODIUM 40 MG VIAL IVPUSH ONE ×2 (11:12→11:38)
[2021-11-19] MEDS ORDERED: FAMOTIDINE 10 MG TABLET PO ONE ×2 (11:12→11:39)
[2021-11-19] MEDS ORDERED: SUCRALFATE 1 GM/10 ML UNIT DOSE CUPS PO ONE (11:30)
[2021-11-19] MEDS ORDERED: PANTOPRAZOLE SODIUM 80 MG/200 ML BAG IVPB ONE (11:45)
[2021-11-19] MEDS ORDERED: FAMOTIDINE 10 MG TABLET ONE (11:45)
[2021-11-19] MEDS ORDERED: MAG HYDROX/AL HYDROX/SIMETH 30 ML UNIT-DOSE CUP ONE (11:46)
[2021-11-19] MEDS ORDERED: SUCRALFATE 1 GM TABLET (FP) ONE (11:46)
[2021-11-19 11:51] LABS: BASO % 0.4 % (0-2.0); EOS % 1.1 % (0-4.5); HEMATOCRIT 40.9 % (35.4-49); HEMOGLOBIN 13.4 GM/dL (11.7-16.9); LYMPH % 42.1 % (8-40); MCH 28.4 pg (25.7-33.7); MCHC 32.7 g/dl (32.0-35.9); MEAN CELL VOLUME 86.9 fl (80-96); MEAN PLT VOLUME 9.7 fl (7.5-11.1); MONO % 16.4 % (3.8-10.2); PLATELET COUNT 137 10^3/uL (134-434); RBC 4.71 M/mm3 (4.00-5.60); RDW 15.9 % (11.9-15.9); WHITE BLOOD COUNT 2.4 K/mm3 (4.0-10.0)
[2021-11-19 12:09] LABS: INR 1.2 (0.83-1.09); PROTHROMBIN TIME (PATIENT) 13.8 SEC (9.7-13.0)
[2021-11-19 12:12] LABS: ACTIVATED PTT 33.4 SECONDS (25.2-36.5); CHLORIDE 103 mmol/L (98-107); SODIUM 140 mmol/L (136-145)
[2021-11-19 12:14] LABS: CALCIUM 8.9 mg/dL (8.5-10.1)
[2021-11-19 12:15] LABS: ALBUMIN 3.8 g/dl (3.4-5.0); BLOOD UREA NITROGEN 21.2 mg/dL (7-18); CO2 31 mmol/L (21-32); GLUCOSE,RANDOM 95 mg/dL (74-106); LIPASE 50 U/L (73-393)
[2021-11-19 12:18] LABS: CREATININE 1.1 mg/dL (0.55-1.3); SGOT/AST 62 U/L (15-37); SGPT/ALT 49 U/L (13-61)
[2021-11-19 12:19] LABS: BILIRUBIN,TOTAL 0.7 mg/dL (0.2-1); TOT PROT 7.4 g/dl (6.4-8.2)
[2021-11-19 12:20] LABS: ALK PHOS 105 U/L (45-117)
[2021-11-19 12:24] LABS: ANION GAP 6 MMOL/L (8-16)
[2021-11-19 15:19] LABS: CALCIUM 8.8 mg/dL (8.5-10.1)
[2021-11-19 15:20] LABS: BLOOD UREA NITROGEN 19.7 mg/dL (7-18)
[2021-11-19 15:23] LABS: CREATININE 0.9 mg/dL (0.55-1.3)
[2021-11-19 15:34] LABS: URINE APPEARANCE CLEAR; URINE BILIRUBIN NEGATIVE (NEGATIVE); URINE COLOR YELLOW; URINE GLUCOSE (UA) NEGATIVE (NEGATIVE); URINE KETONE NEGATIVE (NEGATIVE); URINE LEUK ESTERASE NEGATIVE (NEGATIVE); URINE NITRITE NEGATIVE (NEGATIVE); URINE PROTEIN NEGATIVE (NEGATIVE); URINE UROBILINOGEN 0.2 mg/dL (0.2-1.0)
[2021-11-19 16:04] VITALS: BP 152/69; PULSE 69
== END 2021-11-19 16:20 | disposition home or self-care (01) ==
LOC: JER 10:28
PROC: 3E033GC Introduction of Other Therapeutic Substance into Peripheral Vein, Percutaneous Approach (ICD-10-PCS; principal; 2021-11-19)
PROC: 3E033GC Introduction of Other Therapeutic Substance into Peripheral Vein, Percutaneous Approach (ICD-10-PCS; 2021-11-19)
DX: K92.1 Melena (principal); R10.31 Right lower quadrant pain; K59.00 Constipation, unspecified
CPT/HCPCS: 36415; 71045-TC-FY; 74177-TC; 80048; 80053; 81003; 82272; 82550; 82553; 83605; 83690; 84484; 85025; 85610; 85730; 86850; 86900; 86901; 87086; 93005; 93010; 99285-25; C9803; Q9967; U0003; U0005

== ENCOUNTER 2022-05-09 05:41 | Emergency (ER) | payer OTHER ==
[2022-05-09 06:12] VITALS: TEMP 98.1; BMI 19.2
[2022-05-09] MEDS ORDERED: SODIUM PHOSPHATE/NA BIPHOS 133 ML ENEMA PR ONE (07:27)
[2022-05-09 09:10] LABS: BASO % 0.3 % (0-2.0); EOS % 0.1 % (0-4.5); HEMATOCRIT 42.9 % (35.4-49); HEMOGLOBIN 14.6 GM/dL (11.7-16.9); LYMPH % 32.7 % (8-40); MEAN CELL VOLUME 88.3 fl (80-96); MEAN PLT VOLUME 7.8 fl (7.5-11.1); MONO % 12.4 % (3.8-10.2); NEUT % 54.5 % (42.8-82.8); PLATELET COUNT 165 10^3/uL (134-434); RBC 4.86 M/mm3 (4.00-5.60); RDW 15.5 % (11.9-15.9); WHITE BLOOD COUNT 3.2 K/mm3 (4.0-10.0)
[2022-05-09 09:31] LABS: CALCIUM 8.7 mg/dL (8.5-10.1)
[2022-05-09 09:32] LABS: ALBUMIN 4.1 g/dl (3.4-5.0); BLOOD UREA NITROGEN 18.5 mg/dL (7-18)
[2022-05-09 09:35] LABS: CREATININE 1.2 mg/dL (0.55-1.3)
[2022-05-09 09:37] LABS: BILIRUBIN,TOTAL 0.8 mg/dL (0.2-1); TOT PROT 7.1 g/dl (6.4-8.2)
[2022-05-09 10:08] VITALS: BP 136/84; PULSE 80
== END 2022-05-09 10:10 | disposition home or self-care (01) ==
LOC: JER 05:41
DX: K59.00 Constipation, unspecified (principal)
CPT/HCPCS: 36415; 80053; 85025; 99283-25

== ENCOUNTER 2022-05-23 05:28 | Emergency (ER) | payer OTHER ==
[2022-05-23 05:55] VITALS: BP 150/78; PULSE 69; TEMP 98.7; BMI 19.2
== END 2022-05-23 07:28 | disposition home or self-care (01) ==
LOC: JER 05:28
DX: K56.41 Fecal impaction (principal)
CPT/HCPCS: 99283-25

== ENCOUNTER 2023-01-31 11:22 | Emergency (ER) | payer OTHER ==
[2023-01-31 11:37] VITALS: BP 138/60; PULSE 79; RESP 16; TEMP 97.7; BMI 19.9
[2023-01-31] MEDS ORDERED: ACETAMINOPHEN 325 MG TABLET (FP) PO ONE (12:56)
[2023-01-31] MEDS ORDERED: ACETAMINOPHEN 325 MG TABLET (FP) ONE (13:00)
[2023-01-31 13:37] LABS: EPI CELLS 7 /uL (0-25.1); HYALINE CASTS 1 /uL (0-3.1); URINE APPEARANCE CLEAR; URINE BACTERIA 3 /uL (0-1359); URINE BILIRUBIN NEGATIVE (NEGATIVE); URINE COLOR YELLOW; URINE GLUCOSE (UA) NEGATIVE (NEGATIVE); URINE KETONE NEGATIVE (NEGATIVE); URINE LEUK ESTERASE TRACE (NEGATIVE); URINE NITRITE NEGATIVE (NEGATIVE); URINE PROTEIN NEGATIVE (NEGATIVE); URINE RBC 6 /uL (0-23.9); URINE UROBILINOGEN 0.2 mg/dL (0.2-1.0); URINE WBC 13 /uL (0-25.8)
== END 2023-01-31 14:19 | disposition home or self-care (01) ==
LOC: JER 11:22
DX: S30.0XXA Contusion of lower back and pelvis, initial encounter (principal); G89.11 Acute pain due to trauma; M54.50 Low back pain, unspecified; J20.9 Acute bronchitis, unspecified; V85.4XXA Person injured while boarding or alighting from special construction vehicle, initial encounter; Z20.822 Contact with and (suspected) exposure to COVID-19
CPT/HCPCS: 0241U-QW; 71046-TC-FY; 72131-TC; 72170-TC-FY; 81003; 87077; 87086; 93005; 93010; 99285-25

== ENCOUNTER 2023-02-04 14:12 | Emergency (ER) | payer OTHER ==
[2023-02-04 14:43] VITALS: BP 124/71; PULSE 63; RESP 16; TEMP 98; BMI 19.9
== END 2023-02-04 17:17 | disposition home or self-care (01) ==
LOC: JER 14:12
DX: D72.819 Decreased white blood cell count, unspecified (principal)
CPT/HCPCS: 99282-25

== ENCOUNTER 2023-03-02 19:23 | Emergency (ER) | payer OTHER ==
[2023-03-02 19:41] VITALS: BP 131/61; PULSE 69; RESP 20; TEMP 97.6; BMI 19.9
== END 2023-03-02 20:15 | disposition home or self-care (01) ==
LOC: JERFT 19:23 → JER 19:23 → JERFT 20:15
DX: I10 Essential (primary) hypertension (principal); Z00.00 Encounter for general adult medical examination without abnormal findings
CPT/HCPCS: 99282-25